=== PATIENT | male | born 1935 | race Caucasian/White ===

== ENCOUNTER 2017-04-26 20:36 | Inpatient (IN) | payer OTHER ==
[~2017-04-26] VITALS: Ht 165.1 cm; Wt 84.1 kg
[2017-04-26 21:25] LABS: BASO % 0.1 %; BASO ABS # 0.01 K/uL (0-0.2); COMPLETE YES; EOS % 2.7 %; HEMATOCRIT 45.1 % (42-52); IG% 0.5 %; LYMPH % 15.1 %; LYMPH ABS # 1.13 K/uL (1.2-3.4); MEAN CELL VOLUME 93.6 fL (80-100); MEAN CORPUSCULAR HEMOGLOBIN 33.2 pg (25-34); MEAN CORPUSCULAR HGB CONC 35.5 g/dl (32-36); MEAN PLATELET VOLUME 9.8 fL (7.4-10.4); MONO % 9.2 %; NEUT % 72.4 %; PLATELET COUNT 125 K/uL (130-400); RED BLOOD COUNT 4.82 M/uL (4.7-6.1)
[2017-04-26 21:47] LABS: ALT/SGPT 32 U/L (12-78); BLOOD UREA NITROGEN 23 mg/dl (7-18); BUN/CREATININE RATIO 14.6 (10-20); CALCIUM 9.4 mg/dl (8.5-10.1); CARBON DIOXIDE 25 mmol/L (21-32); CHLORIDE 105 mmol/L (98-107); GLUCOSE 248 mg/dl (70-99); POTASSIUM 3.6 mmol/L (3.5-5.1); SODIUM 138 mmol/L (136-145)
[2017-04-26 21:50] LABS: ALB/GLOB RATIO 0.9 (0.9-2); ALKALINE PHOSPHATASE 77 U/L (45-117); AST/SGOT 27 U/L (15-37)
[2017-04-26] MEDS ORDERED: SODIUM CHLORIDE 0.9% 500ML 500 ML IV STA (22:07)
[2017-04-26] MEDS ORDERED: MECLIZINE HCL 25 MG TAB PO STA (22:07)
--- NOTE | 2017-04-26 22:52 | DIAGNOSTIC IMAGING REPORT ---
HEAD WITHOUT CONTRAST (CT) CLINICAL HISTORY: 82 years-old Male presenting with dizziness. TECHNIQUE: Multidetector CT imaging of the head was performed without the use of intravenous contrast. IV contrast: None. A dose lowering technique was used consistent with the principles of ALARA (as low as reasonably achievable). COMPARISON: None. CT DOSE (mGy.cm): The estimated cumulative dose is 537.48 mGy.cm. 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 Ventricular and sulcal prominence, likely age-related parenchymal volume loss. Relative effacement of the sulci at the vertex. Periventricular and subcortical white matter hypoattenuation, nonspecific but likely indicative of chronic small vessel ischemic change. Hypodensity in the medial aspect of the right cerebellar hemisphere with associated mass effect on the fourth ventricle and regional cerebellar folia. No mass effect or midline shift. No hemorrhage. No extra-axial fluid collection. Paranasal sinuses and mastoid air cells clear. Calvarium intact. IMPRESSION: 1. Findings concerning for acute or subacute infarct in the right cerebellar hemisphere. 2. Chronic small vessel ischemic change. 3. Relative effacement of the sulci at the vertex can be seen in the setting of normal pressure hydrocephalus. Further evaluation with noncontrast MR brain could be considered. Electronically signed by: Trever Hardy M.D. 04/26/2017 10:51 PM Dictated Date/Time: 04/26/2017 10:46 PM
[2017-04-26] MEDS ORDERED: LABETALOL HCL IV 5 MG/ML 20ML IV STA (23:16)
[2017-04-26] MEDS ORDERED: ASPIRIN 81 MG CHEW PO STA (23:16)
[2017-04-26] MEDS ORDERED: INSULIN GLARGINE SOLOSTAR 100 UNITS/ML 3 ML PEN SC STA (23:30)
[2017-04-26 23:58] LABS: MAGNESIUM 2.1 mg/dl (1.8-2.4)
[2017-04-27] VITALS (7 sets, daily range): BP systolic 129–177; BP diastolic 77–105; PULSE 69–86; TEMP 36.7–36.9; O2SAT 94–98; Ht 165.1 cm; Wt 84.1 kg
[2017-04-27] MEDS ORDERED: DEXTROSE 50% 50 ML SYR IV PRN (00:45)
[2017-04-27] MEDS ORDERED: GLUCOSE 10 TABS/TUBE PO PRN (00:45)
[2017-04-27] MEDS ORDERED: PHARMACIST DISCHARGE MED REC CONSULT PRN (00:45)
[2017-04-27] MEDS ORDERED: NITROGLYCERIN 0.4 MG SL PER TAB CHARGE SL PRN (00:45)
[2017-04-27] MEDS ORDERED: MECLIZINE HCL 12.5 MG TAB PO PRN (00:45)
[2017-04-27] MEDS ORDERED: GLUCOSE 40% GEL 15 GM TUBE PO PRN (00:45)
[2017-04-27] MEDS ORDERED: TRAMADOL HCL 50 MG TAB PO PRN (00:45)
[2017-04-27] MEDS ORDERED: ACETAMINOPHEN 325 MG TAB PO PRN (00:45)
[2017-04-27] MEDS ORDERED: ONDANSETRON INJ 2 MG/ML 2 ML VIAL IV PRN (00:45)
[2017-04-27] MEDS ORDERED: GLUCAGON FOR INJ 1 MG VIAL SQ PRN (00:45)
--- NOTE | 2017-04-27 01:31 | EMERGENCY ROOM VISIT NOTE ---
History Report prepared by Candy: Delmi Engel Under the Supervision of: Dr. Daryn Melissa M.D. First contact with patient: 21:50 Chief Complaint: DIZZY Stated Complaint: DIZZY,NAUSEA Nursing Triage Summary: Per patient, has been experiencing dizziness for "awhile now." With increased weakness. Per family, patient has c/o dizziness from at least Thursday on, states he has been crawling to get around and has not been eating/drinking enough. Family states they have tried getting him to ER and patient has refused. Today patient agreed he needed checked out. Pt has dual chamber pacer. History of Present Illness The patient is an 82 year old male who presents to the Emergency Room with complaints of worsening dizziness starting four days ago. The patient states that he has had this in the past, but didn't do anything about it. The patient notes he doesn't remember the last time he has seen a doctor. The patient notes that it is worse with movement and better when lying down. His family notes that he was on depression medication at one point and just stopped taking everything. They note that at this time his communications engineering technician dismissed him for not taking his Coumadin after having a pacemaker placed for bradycardia. Pt denies LOC, headache, fevers, chills, diaphoresis, visual changes, neck pain, chest pain, breathing difficulties, nausea, vomiting, abdominal pain, back pain, melena, hematochezia, urinary symptoms, numbness, weakness, lymphadenopathy, rash, or other complaints. Source of History: patient, family Onset: four days ago Position: other (global) Quality: other (global) Timing: worsening Modifying Factors (Worsening): movement Modifying Factors (Relieving): rest Review of Systems See HPI for pertinent positives and negatives. A total of ten systems were reviewed and were otherwise negative. Past Medical & Surgical Medical Problems: (1) Bradyarrhythmia (2) CVA (cerebral vascular accident) (3) Depression (4) Pacemaker Family History Patient reports no known family medical history. Social History Smoking Status: Never Smoker Marital Status: Housing Status: lives alone Current/Historical Medications No Active Prescriptions or Reported Meds Allergies Coded Allergies: No Known Allergies (Unverified , 04/26/17) Physical Exam Vital Signs Date Time Temp Pulse Resp B/P (MAP) Pulse Ox O2 Delivery O2 Flow Rate FiO2 04/27/17 00:11 36.6 71 18 151/102 98 04/27/17 00:03 71 18 151/102 98 Room Air 04/26/17 22:26 72 20 177/90 95 Room Air 04/26/17 22:21 72 191/104 73 164/107 74 177/90 04/26/17 21:03 71 04/26/17 20:49 36.6 70 18 173/110 96 Room Air Physical Exam GENERAL: Awake, alert, well-appearing, in no distress HENT: Normocephalic, atraumatic. Oropharynx unremarkable. EYES: Normal conjunctiva. Sclera non-icteric. NECK: Supple. No nuchal rigidity. FROM. No JVD. RESPIRATORY: Clear to auscultation. CARDIAC: Regular rate, normal rhythm. Extremities warm and well perfused. Pulses equal. ABDOMEN: Soft, non-distended. No tenderness to palpation. No rebound or guarding. No masses. RECTAL: Deferred. MUSCULOSKELETAL: Chest examination reveals no tenderness. The back is symmetrical on inspection without obvious abnormality. There is no CVA tenderness to palpation. No joint edema. LOWER EXTREMITIES: Calves are equal size bilaterally and non-tender. No edema. No discoloration. NEURO: Normal sensorium. No sensory or motor deficits noted. Lateral nystagmus. SKIN: No rash or jaundice noted. Secondary excoriations on shins. Medical Decision & Procedures ER Provider Diagnostic Interpretation: Radiology results as stated below per my review and radiologist interpretation: HEAD WITHOUT CONTRAST (CT) CLINICAL HISTORY: 82 years-old Male presenting with dizziness. TECHNIQUE: Multidetector CT imaging of the head was performed without the use of intravenous contrast. IV contrast: None. A dose lowering technique was used consistent with the principles of ALARA (as low as reasonably achievable). COMPARISON: None. CT DOSE (mGy.cm): The estimated cumulative dose is 537.48 mGy.cm. 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 Ventricular and sulcal prominence, likely age-related parenchymal volume loss. Relative effacement of the sulci at the vertex. Periventricular and subcortical white matter hypoattenuation, nonspecific but likely indicative of chronic small vessel ischemic change. Hypodensity in the medial aspect of the right cerebellar hemisphere with associated mass effect on the fourth ventricle and regional cerebellar folia. No mass effect or midline shift. No hemorrhage. No extra-axial fluid collection. Paranasal sinuses and mastoid air cells clear. Calvarium intact. IMPRESSION: 1. Findings concerning for acute or subacute infarct in the right cerebellar hemisphere. 2. Chronic small vessel ischemic change. 3. Relative effacement of the sulci at the vertex can be seen in the setting of normal pressure hydrocephalus. Further evaluation with noncontrast MR brain could be considered. Electronically signed by: Trever Hardy M.D. 04/26/2017 10:51 PM Dictated Date/Time: 04/26/2017 10:46 PM Laboratory Results 04/26/17 21:10 Red Blood Count 4.82, Mean Corpuscular Volume 93.6, Mean Corpuscular Hemoglobin 33.2, Mean Corpuscular Hemoglobin Concent 35.5, Mean Platelet Volume 9.8, Neutrophils (%) (Auto) 72.4, Lymphocytes (%) (Auto) 15.1, Monocytes (%) (Auto) 9.2, Eosinophils (%) (Auto) 2.7, Basophils (%) (Auto) 0.1, Neutrophils # (Auto) 5.43, Lymphocytes # (Auto) 1.13, Monocytes # (Auto) 0.69, Eosinophils # (Auto) 0.20, Basophils # (Auto) 0.01 04/26/17 21:10 Test 04/26/17 21:10 04/26/17 21:15 White Blood Count 7.50 K/uL (4.8-10.8) Red Blood Count 4.82 M/uL (4.7-6.1) Hemoglobin 16.0 g/dL (14.0-18.0) Hematocrit 45.1 % (42-52) Mean Corpuscular Volume 93.6 fL (80-100) Mean Corpuscular Hemoglobin 33.2 pg (25-34) Mean Corpuscular Hemoglobin Concent 35.5 g/dl (32-36) Platelet Count 125 K/uL (130-400) Mean Platelet Volume 9.8 fL (7.4-10.4) Neutrophils (%) (Auto) 72.4 % Lymphocytes (%) (Auto) 15.1 % Monocytes (%) (Auto) 9.2 % Eosinophils (%) (Auto) 2.7 % Basophils (%) (Auto) 0.1 % Neutrophils # (Auto) 5.43 K/uL (1.4-6.5) Lymphocytes # (Auto) 1.13 K/uL (1.2-3.4) Monocytes # (Auto) 0.69 K/uL (0.11-0.59) Eosinophils # (Auto) 0.20 K/uL (0-0.5) Basophils # (Auto) 0.01 K/uL (0-0.2) RDW Standard Deviation 42.1 fL (36.4-46.3) RDW Coefficient of Variation 12.4 % (11.5-14.5) Immature Granulocyte % (Auto) 0.5 % Immature Granulocyte # (Auto) 0.04 K/uL (0.00-0.02) Activated Partial Thromboplast Time 24.7 SECONDS (21.0-31.0) Partial Thromboplastin Ratio 1.0 Anion Gap 8.0 mmol/L (3-11) Estimated GFR () 45.2 Estimated GFR (Non- 39.0 BUN/Creatinine Ratio 14.6 (10-20) Calcium Level 9.4 mg/dl (8.5-10.1) Magnesium Level 2.1 mg/dl (1.8-2.4) Total Bilirubin 0.9 mg/dl (0.2-1) Aspartate Amino Transf (AST/SGOT) 27 U/L (15-37) Alanine Aminotransferase (ALT/SGPT) 32 U/L (12-78) Alkaline Phosphatase 77 U/L (45-117) Total Protein 7.8 gm/dl (6.4-8.2) Albumin 3.7 gm/dl (3.4-5.0) Globulin 4.1 gm/dl (2.5-4.0) Albumin/Globulin Ratio 0.9 (0.9-2) Thyroid Stimulating Hormone (TSH) 2.530 uIu/ml (0.300-4.500) Laboratory results reviewed by me Medications Administered Medications (Trade) Dose Ordered Sig/Alida Route Start Time Stop Time Status Last Admin Dose Admin Meclizine HCl (Antivert Tab) 25 mg NOW STAT PO 04/26/17 22:07 04/26/17 22:09 DC 04/26/17 22:25 25 MG Sodium Chloride 500 ml @ 999 mls/hr Q31M STAT IV 04/26/17 22:07 04/26/17 22:37 DC 04/26/17 22:25 999 MLS/HR Aspirin (Aspirin Chew) 324 mg NOW STAT PO 04/26/17 23:16 04/26/17 23:17 DC 04/26/17 23:29 324 MG Labetalol HCl (Normodyne IV) 10 mg NOW STAT IV 04/26/17 23:16 04/26/17 23:17 DC 04/26/17 23:31 10 MG Insulin Glargine (Lantus Solostar Pen) 5 units NOW STAT SC 04/26/17 23:30 04/26/17 23:31 DC 04/27/17 00:00 5 UNITS ECG Indication: other (dizziness) Rate (beats per minute): 72 Rhythm: other (paced rhythm) Findings: no acute ischemic change, no ectopy ED Course 5: The patient was evaluated in room B5. A complete history and physical exam was performed. 2207: Ordered NSS 500 ml @ 999 mls/hr IV, Antivert Tab 25 mg PO. 2316: Ordered Normodyne IV 10 mg IV, Aspirin 324 mg PO. 2318: I reevaluated the patient and updated him on his test results. 2321: Discussed the patient's case with Dr. Tejada. The patient will be evaluated for further treatment and disposition. Medical Decision Triage Nursing notes reviewed. The patient's presentation and history were concerning for dizziness. Etiologies such as benign positional vertigo, tumor, infection, hypoglycemia, electrolyte abnormalities, cardiac sources, intracerebral event, toxicologic, neurologic, as well as others were entertained. patient was evaluated. He had some examination.He was dizzy with head movement. Blood work was obtained and was unremarkable. ECG showed a paced rhythm. The patient underwent CT imaging and this was concerning for an acute cerebellar stroke. The patient was given aspirin. His blood pressure was fairly high and a small dose of labetalol was given as well. Consultation was made with internal medicine. The patient was educated as well as family. The patient was evaluated in the Emergency Room by internal medicine for admission and further treatment. Medication Reconcilliation Current Medication List: was personally reviewed by il Blood Pressure Screening Patient's blood pressure: Elevated blood pressure Will be further monitored by hospitalist. Consults Time Called: 2319 Consulting Physician: Dr. Tejada Returned Call: [phone] Discussed the patient's case with Dr. Tejada. The patient will be evaluated for further treatment and disposition. Impression Primary Impression: CVA (cerebral vascular accident) Scribe Attestation The scribe's documentation has been prepared under my direction and personally reviewed by me in its entirety. I confirm that the note above accurately reflects all work, treatment, procedures, and medical decision making performed by me. Departure Information Dispostion Being Evaluated By Hospitalist Prescriptions No Active Prescriptions or Reported Meds Referrals No Doctor, Assigned (PCP) Patient Instructions My [facility]
[2017-04-27] MEDS ORDERED: NSS + 20MEQ KCL 1000ML 1,000 ML IV ONE (01:45)
[2017-04-27] MEDS ORDERED: INSULIN ASPART 100 UNITS/ML 3 ML PEN SC STA (01:46)
--- NOTE | 2017-04-27 03:21 | HISTORY & PHYSICAL EXAMINATION ---
DATE OF ADMISSION: 04/26/2017 PRIMARY CARE DOCTOR: Patient has no primary care doctor. Previous PCP is Asael Bailey PA-C. CHIEF COMPLAINT: Dizziness. HISTORY OF PRESENT ILLNESS: History is obtained from the patient, family, and records. Medical history is significant for symptomatic bradycardia sp PPM, Coumadin noncompliance, hypertension, borderline DM2, past tobacco abuse, BPH. Five days ago, the patient noted dizziness spinning, worse with moving around. Px crawling around his house. Did not want to go to the Emergency Room. Yesterday a friend of his advised him to take aspirin. No chest pain, no shortness of breath, no headache. Patient was brought to the Emergency Room with persistent symptoms. A CAT scan showed acute-subacute infarct right cerebellar hemisphere, chronic small vessel ischemic change. Patient was given additional aspirin in the Emergency Room. MEDICAL HISTORY: As above. He was seeing Dr. 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 SURGERIES: Pacemaker placement, cholecystectomy, orthopedic procedures. HOME MEDICATIONS: None. ALLERGIES: No known drug allergies. FAMILY HISTORY: Heart disease. PERSONAL AND SOCIAL HISTORY: Past tobacco abuse, no alcohol. 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 Lives alone. REVIEW OF SYSTEMS: As per HPI, all other ROS negative. PHYSICAL EXAMINATION: VITAL SIGNS: Blood pressure was noted to be pulse 150/110, pulse rate 72, RR 20, temperature 36.6, sats 95 on room air. GENERAL: Noted to be obese, comfortable, no respiratory distress. SKIN: Normal color. HEENT: [place] palpebral conjunctivae. Dry mucosa. lip asymmetry, L NECK: Short. CHEST: Decreased breath sounds. HEART: Diminished S1, S2. ABDOMEN: Soft. EXTREMITIES: No edema, no tenderness. NEUROLOGIC: No gross focality, except for lip asymmetry. Gait and stance not assessed. LABORATORY DATA: Hemoglobin was noted to be 16, hematocrit 45, white blood cell 10 , platelets noted to be 125. Sodium 138, potassium 3.6, chloride 105, CO2 25, BUN 20, creatinine 1.6, glucose 248. IMAGING DATA: CT of the head as above. EKG as per my interpretation paced rhythm. ASSESSMENT: 1. Subacute cerebrovascular accident. 2. Hypertensive urgency secondary to above. 3. History of symptomatic bradycardia (? SSS) sp PPM noncompliant with Coumadin. 4. hx hyperlipidemia as per family. 5. Past tobacco abuse. 6. Thrombocytopenia, unknown duration. 7. ARF, unknown duration. 8. probable DM2 (hx borderline diabetes years ago as per patient) 9. BPH as per records PLAN: PCU. Neuro checks. Continue aspirin for secondary stroke prevention for now. Initiate statin Stroke workup : TTE, carotid Dopplers Check lipid profile Neurology consult RE stroke. PT, OT eval. Permissive hypertension for now, consider initiation of ACEI later on barring contraindications Baseline UA, monitor creatinine response to IV fluids; check renal ultrasound if without improvement. Pacemaker interrogation, obtain outpatient Cardiology records (Dr. Laguerre) basal Lantus. ISS BG goal 140-180. Check hemoglobin A1c. May need diabetic education pending HgA1c results. DVT prophylaxis. SCDs thrombocytopenia DNR. Patient's son requesting updates from providers. Obinna Ramez at [phone]. MTDD
[2017-04-27 06:14] LABS: ESTIMATED AVERAGE GLUCOSE 177 mg/dl; HA1C FLAG Normal (Normal)
[2017-04-27] MEDS: INSULIN ASPART 100 UNITS/ML 3 ML PEN SC SCH ×4 (07:00→21:00)
[2017-04-27 07:03] LABS: BASO % 0.3 %; BASO ABS # 0.02 K/uL (0-0.2); COMPLETE YES; EOS % 4.8 %; HEMATOCRIT 42.3 % (42-52); IG% 0.4 %; LYMPH % 21.5 %; LYMPH ABS # 1.52 K/uL (1.2-3.4); MEAN CELL VOLUME 93.6 fL (80-100); MEAN CORPUSCULAR HGB CONC 35.2 g/dl (32-36); MEAN PLATELET VOLUME 9.9 fL (7.4-10.4); PLATELET COUNT 103 K/uL (130-400); RED BLOOD COUNT 4.52 M/uL (4.7-6.1); WHITE BLOOD COUNT 7.07 K/uL (4.8-10.8)
[2017-04-27 07:26] LABS: BUN/CREATININE RATIO 13.5 (10-20); CREATININE 1.5 mg/dl (0.60-1.40); POTASSIUM 4.2 mmol/L (3.5-5.1)
[2017-04-27 07:29] LABS: CHOLESTEROL/HDL RATIO 2.5
[2017-04-27] MEDS: ASPIRIN 325 MG ECTAB PO SCH (08:15)
[2017-04-27] MEDS: INSULIN GLARGINE SOLOSTAR 100 UNITS/ML 3 ML PEN SC SCH ×2 (08:22→21:19)
--- NOTE | 2017-04-27 08:59 | DIAGNOSTIC IMAGING REPORT ---
CAROTID ARTERY ULTRASOUND CLINICAL HISTORY: Stroke. COMPARISON STUDY: None. TECHNIQUE: Real-time, grayscale, and color Doppler sonography of the carotid and vertebral arteries was performed. Images were viewed in the transverse and longitudinal planes. FINDINGS: There is moderate atherosclerotic plaque. Velocity measurements are listed below. COMMON CAROTID PEAK SYSTOLIC VELOCITY (CM/S): RIGHT 41 LEFT 49 ICA PEAK SYSTOLIC VELOCITY (CM/S): RIGHT 56 LEFT 70 Systolic ratios between the internal to common carotid arteries were normal. Antegrade flow is seen in the vertebral arteries however flow within the right vertebral artery was asymmetrically diminished when compared to the left. The external carotid arteries are patent. Blood pressures were not obtained in this patient. IMPRESSION: 1. No evidence of a hemodynamically significant stenosis within the bilateral common carotid and internal carotid arteries. 2. Asymmetrically diminished flow within the right vertebral artery when compared to left. Electronically signed by: Tai Bardales M.D. 04/27/2017 8:58 AM Dictated Date/Time: 04/27/2017 8:54 AM
[2017-04-27] MEDS ORDERED: ATORVASTATIN 20 MG TAB PO SCH (09:00)
[2017-04-27] MEDS ORDERED: PERFLUTREN LIPID MICROSPHERE (DEFINITY) IV ONE (10:06)
--- NOTE | 2017-04-27 13:31 | Neurology Consultation ---
Neurology Consultation Date of Consultation: Apr 27, 2017. Attending Physician: Alyssa Cisneros DO Primary Care Physician: No Doctor, Assigned Reason for Consultation: stroke History of Present Illness Source: patient, hospital records Jose is a 82 year old male who has a PMH symptomatic bradycardia, sick sinus syndrome, status post pacemaker placement, HTN, DL, past tobacco abuse, BPH. He states he started getting dizzy 5 days ago, increased with moving around. He had trouble crawling around his house and didn't want to seek medical attention. he was brought to ED given aspirin and A CAT scan showed acute- subacute infarct right cerebellar hemisphere, chronic small vessel ischemic change. He can not have an MRI due to his pacemaker. He states he lives alone and doesn't go to the doctor regularly. Social History Marital Status: Housing Status: lives alone Allergies Coded Allergies: No Known Allergies (Unverified , 04/26/17) Current Inpatient Medications Current Inpatient Medications Medications (Trade) Dose Ordered Sig/Alida Route Start Time Stop Time Status Last Admin Dose Admin Insulin Glargine (Lantus Solostar Pen) 5 units BID SC 04/27/17 09:00 05/27/17 08:59 04/27/17 08:22 5 UNITS Potassium Chloride/Sodium Chloride 1,000 ml @ 60 mls/hr [id number] ONCE IV 04/27/17 01:45 04/27/17 18:24 04/27/17 02:12 60 MLS/HR Acetaminophen (Tylenol Tab) 650 mg Q4H PRN PO 04/27/17 00:45 05/27/17 00:44 Nitroglycerin (Nitrostat Tab) 0.4 mg UD PRN SL 04/27/17 00:45 05/27/17 00:44 Insulin Aspart (novoLOG ASPART) SLIDING SCALE If C... ACHS SC 04/27/17 07:00 05/27/17 06:59 04/27/17 12:23 3 UNITS Glucose (Glucose 40% Gel) 15-30 GRAMS 15 GRAMS... UD PRN PO 04/27/17 00:45 05/27/17 00:44 Glucose (Glucose Chew Tab) 4-8 Tablets 4 Tabl... UD PRN PO 04/27/17 00:45 05/27/17 00:44 Dextrose (Dextrose 50% 50ML Syringe) 25-50ML OF 50% DW IV FOR... UD PRN IV 04/27/17 00:45 05/27/17 00:44 Glucagon (Glucagon Inj) 1 mg UD PRN SQ 04/27/17 00:45 05/27/17 00:44 Atorvastatin Calcium (Lipitor Tab) 20 mg QAM PO 04/27/17 09:00 05/27/17 08:59 04/27/17 08:15 20 MG Aspirin (Ecotrin Tab) 325 mg QAM PO 04/27/17 09:00 05/27/17 08:59 04/27/17 08:15 325 MG Miscellaneous Information (Pharmacist Discharge Med Rec Consult) 1 ea UD PRN N/A 04/27/17 00:45 05/27/17 00:44 Tramadol HCl (Ultram Tab) not relieved by tylenol @ Q6H PRN PO 04/27/17 00:45 05/27/17 00:44 Ondansetron HCl (Zofran Inj) 4 mg Q6H PRN IV 04/27/17 00:45 05/27/17 00:44 Meclizine HCl (Antivert Tab) 12.5 mg Q6H PRN PO 04/27/17 00:45 05/27/17 00:44 Physical Exam Vital Signs (Past 24 Hrs): Date Time Temp Pulse Resp B/P (MAP) Pulse Ox O2 Delivery O2 Flow Rate FiO2 04/27/17 12:00 Room Air 04/27/17 11:47 36.7 85 18 158/92 (114) 95 04/27/17 08:22 36.8 86 18 140/93 (109) 95 04/27/17 08:00 Room Air 04/27/17 04:12 36.7 71 18 129/77 (94) 94 Room Air 04/27/17 01:25 36.8 73 20 177/105 98 Room Air 04/27/17 00:11 36.6 71 18 151/102 98 04/27/17 00:03 71 18 151/102 98 Room Air 04/26/17 22:26 72 20 177/90 95 Room Air 04/26/17 22:21 72 191/104 73 164/107 74 177/90 04/26/17 21:03 71 04/26/17 20:49 36.6 70 18 173/110 96 Room Air Physical Exam: Constitutional: appearance nourished, healthy and obese Ears, Nose, Mouth and Throat: mucous membranes moist, no injection and skin normal, eyes normal Cardiovascular: normal S-1 and S-2 and regular rate and rhythm Respiratory: clear to auscultation (CTA) and no rales, rhonchi or wheeze Musculoskeletal: no peripheral edema and good distal pulses Skin: no stigmata of neurocutaneous disease noted and normal and intact Eyes: extraocular muscles intact (EOMI) and pupils equal, round and reactive to light (PERRL) NEUROLOGIC EXAMINATION: Mental status: Alert and interactive Oriented to full date and location, [facility], 2017, president Paulo, says no ifs ands or buts, sticks out tongue, closes eyes points to ceiling with right hand Oriented to person Speech fluent with no evidence of aphasia Cranial Nerves smile eye brow raise symmetric, tongue midline Reflexes: Deep tendon reflexes were symmetrical and graded 2/5. Sensory: no sensory deficits with light or cool touch Coordination: finger to nose with slight bi pass on the right clumsy Gait/Stance: Posture normal. OOB to bathroom with walker Motor: Negative for pronator drift of out stretched arms with eyes closed. 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 bilaterally, hip flex plantar flex ext 5/5 Laboratory Results Past 24 Hours: 04/27/17 06:51 Red Blood Count 4.52, Mean Corpuscular Volume 93.6, Mean Corpuscular Hemoglobin 33.0, Mean Corpuscular Hemoglobin Concent 35.2, Mean Platelet Volume 9.9, Neutrophils (%) (Auto) 63.0, Lymphocytes (%) (Auto) 21.5, Monocytes (%) (Auto) 10.0, Eosinophils (%) (Auto) 4.8, Basophils (%) (Auto) 0.3, Neutrophils # (Auto ) 4.45, Lymphocytes # (Auto) 1.52, Monocytes # (Auto) 0.71, Eosinophils # (Auto ) 0.34, Basophils # (Auto) 0.02 04/27/17 06:51 Test 04/26/17 21:10 04/26/17 21:15 04/27/17 06:51 04/27/17 11:25 Activated Partial Thromboplast Time 24.7 SECONDS (21.0-31.0) Partial Thromboplastin Ratio 1.0 Magnesium Level 2.1 mg/dl (1.8-2.4) Total Bilirubin 0.9 mg/dl (0.2-1) Aspartate Amino Transf (AST/SGOT) 27 U/L (15-37) Alanine Aminotransferase (ALT/SGPT) 32 U/L (12-78) Alkaline Phosphatase 77 U/L (45-117) Total Protein 7.8 gm/dl (6.4-8.2) Albumin 3.7 gm/dl (3.4-5.0) Globulin 4.1 gm/dl (2.5-4.0) Albumin/Globulin Ratio 0.9 (0.9-2) Thyroid Stimulating Hormone (TSH) 2.530 uIu/ml (0.300-4.500) Estimated Average Glucose 177 mg/dl Hemoglobin A1c 7.8 % (4.5-5.6) White Blood Count 7.07 K/uL (4.8-10.8) Red Blood Count 4.52 M/uL (4.7-6.1) Hemoglobin 14.9 g/dL (14.0-18.0) Hematocrit 42.3 % (42-52) Mean Corpuscular Volume 93.6 fL (80-100) Mean Corpuscular Hemoglobin 33.0 pg (25-34) Mean Corpuscular Hemoglobin Concent 35.2 g/dl (32-36) Platelet Count 103 K/uL (130-400) Mean Platelet Volume 9.9 fL (7.4-10.4) Neutrophils (%) (Auto) 63.0 % Lymphocytes (%) (Auto) 21.5 % Monocytes (%) (Auto) 10.0 % Eosinophils (%) (Auto) 4.8 % Basophils (%) (Auto) 0.3 % Neutrophils # (Auto) 4.45 K/uL (1.4-6.5) Lymphocytes # (Auto) 1.52 K/uL (1.2-3.4) Monocytes # (Auto) 0.71 K/uL (0.11-0.59) Eosinophils # (Auto) 0.34 K/uL (0-0.5) Basophils # (Auto) 0.02 K/uL (0-0.2) RDW Standard Deviation 42.4 fL (36.4-46.3) RDW Coefficient of Variation 12.5 % (11.5-14.5) Immature Granulocyte % (Auto) 0.4 % Immature Granulocyte # (Auto) 0.03 K/uL (0.00-0.02) Anion Gap 5.0 mmol/L (3-11) Est Creatinine Clear Calc Drug Dose 36.9 ml/min Estimated GFR () 48.8 Estimated GFR (Non- 42.1 BUN/Creatinine Ratio 13.5 (10-20) Calcium Level 9.0 mg/dl (8.5-10.1) Triglycerides Level 115 mg/dl (0-150) Cholesterol Level 156 mg/dl (0-200) HDL Cholesterol 62 mg/dl LDL Cholesterol, Calculated 71 mg/dl VLDL Cholesterol, Calculated 23 mg/dl Cholesterol/HDL Ratio 2.5 Bedside Glucose 201 mg/dl (70-99) Imaging carotid doppler- No evidence of a hemodynamically significant stenosis within the bilateral common carotid and internal carotid arteries. Asymmetrically diminished flow within the right vertebral artery when compared to left. CT head - Findings concerning for acute or subacute infarct in the right cerebellar hemisphere. Chronic small vessel ischemic change. Relative effacement of the sulci at the vertex can be seen in the setting of normal pressure hydrocephalus. Further evaluation with noncontrast MR brain could be considered. Impression 82 year old male 5 days of dizziness, radiographic stroke on CT head. Plan 1. CT head with and without contrast 2. continue aspirin 81 mg and would start plavix [address] head with and without is reviewed 3. optimize DL, DM, HTN 4. interrogate pacemaker 5. patient states he lives alone will need home safety check or alternative living arrangements 6. fall precautions 7. PT/OT speech for discharge needs 8. further recommendations to follow I have seen and discussed above patient with Dr Daryn De Los Santos, neurology Patient seen and examined discussed with Arely riggs and agree with above recommendations He has had multiple events over the yeas likely small vessel but could be embolic suspect the current right cerebellar event was due to right vertebral disease but need to check echo for potential source of emboli and observe for atrial fibrillation events in light of sick sinus syndrome and pacemaker will need pt ot speech and likely social service assessment and potentially hsnv and dual antiplatelet rx for three months but compliance may be an issue will follow Patel De Los Santos MD
[2017-04-27] MEDS ORDERED: OPTIRAY 320 IV PRN (13:45)
--- NOTE | 2017-04-27 14:32 | DIAGNOSTIC IMAGING REPORT ---
HEAD COMBO CLINICAL HISTORY: stroke unable to have MRI due to pacemaker stroke TECHNIQUE: Pre and postcontrast CT of the brain COMPARISON STUDY: 04/26/2017 FINDINGS: Subacute infarct right cerebellar hemisphere. No significant postcontrast enhancement. Moderate to rather significant chronic small vessel change of the periventricular deep white matter regions. Mild age-related atrophy. Mild compensatory prominence of the ventricular system. IMPRESSION: 1. Subacute infarct right cerebellar hemisphere. Considerable chronic small vessel change. No abnormal postcontrast enhancement. The above report was generated using voice recognition software. It may contain grammatical, syntax or spelling errors. Electronically signed by: Usama Bailon M.D. 04/27/2017 2:31 PM Dictated Date/Time: 04/27/2017 2:29 PM
--- NOTE | 2017-04-27 16:16 | Progress Note ---
Subjective Date of Service: Apr 27, 2017. Subjective Pt evaluation today including: conversation w/ patient, physical exam, lab review, review of studies, review of inpatient medication list Saw/examined the patient in room 243 States he still feels slightly dizzy +L lower face, slightly drooped No motor weakness good PO intake Review of Systems Constitutional: No fever, No chills Respiratory: No cough, No sputum, No shortness of breath Cardiac: No chest pain Abdomen: + nausea, + vomiting (prior to arrival, but now improved), No pain Neurologic: + weakness, + vertigo, + balance problems, No numbness/tingling Medications Current Inpatient Medications Medications (Trade) Dose Ordered Sig/Alida Route Start Time Stop Time Status Last Admin Dose Admin Insulin Glargine (Lantus Solostar Pen) 5 units BID SC 04/27/17 09:00 05/27/17 08:59 04/27/17 08:22 5 UNITS Potassium Chloride/Sodium Chloride 1,000 ml @ 60 mls/hr [id number] ONCE IV 04/27/17 01:45 04/27/17 18:24 04/27/17 02:12 60 MLS/HR Acetaminophen (Tylenol Tab) 650 mg Q4H PRN PO 04/27/17 00:45 05/27/17 00:44 Nitroglycerin (Nitrostat Tab) 0.4 mg UD PRN SL 04/27/17 00:45 05/27/17 00:44 Insulin Aspart (novoLOG ASPART) SLIDING SCALE If C... ACHS SC 04/27/17 07:00 05/27/17 06:59 04/27/17 12:23 3 UNITS Glucose (Glucose 40% Gel) 15-30 GRAMS 15 GRAMS... UD PRN PO 04/27/17 00:45 05/27/17 00:44 Glucose (Glucose Chew Tab) 4-8 Tablets 4 Tabl... UD PRN PO 04/27/17 00:45 05/27/17 00:44 Dextrose (Dextrose 50% 50ML Syringe) 25-50ML OF 50% DW IV FOR... UD PRN IV 04/27/17 00:45 05/27/17 00:44 Glucagon (Glucagon Inj) 1 mg UD PRN SQ 04/27/17 00:45 05/27/17 00:44 Atorvastatin Calcium (Lipitor Tab) 20 mg QAM PO 04/27/17 09:00 05/27/17 08:59 04/27/17 08:15 20 MG Aspirin (Ecotrin Tab) 325 mg QAM PO 04/27/17 09:00 05/27/17 08:59 04/27/17 08:15 325 MG Miscellaneous Information (Pharmacist Discharge Med Rec Consult) 1 ea UD PRN N/A 04/27/17 00:45 05/27/17 00:44 Tramadol HCl (Ultram Tab) not relieved by tylenol @ Q6H PRN PO 04/27/17 00:45 05/27/17 00:44 Ondansetron HCl (Zofran Inj) 4 mg Q6H PRN IV 04/27/17 00:45 05/27/17 00:44 Meclizine HCl (Antivert Tab) 12.5 mg Q6H PRN PO 04/27/17 00:45 05/27/17 00:44 Ioversol (Optiray 320) 125 ml UD PRN IV 04/27/17 13:45 05/01/17 13:44 Objective Vital Signs Date Time Temp Pulse Resp B/P (MAP) Pulse Ox O2 Delivery O2 Flow Rate FiO2 04/27/17 16:01 36.7 69 22 162/93 (116) 96 Room Air 04/27/17 12:00 Room Air 04/27/17 11:47 36.7 85 18 158/92 (114) 95 04/27/17 08:22 36.8 86 18 140/93 (109) 95 04/27/17 08:00 Room Air 04/27/17 04:12 36.7 71 18 129/77 (94) 94 Room Air 04/27/17 01:25 36.8 73 20 177/105 98 Room Air 04/27/17 00:11 36.6 71 18 151/102 98 04/27/17 00:03 71 18 151/102 98 Room Air 04/26/17 22:26 72 20 177/90 95 Room Air 04/26/17 22:21 72 191/104 73 164/107 74 177/90 04/26/17 21:03 71 04/26/17 20:49 36.6 70 18 173/110 96 Room Air Physical Exam General Appearance: no apparent distress Cardiovascular: regular rate, rhythm, no edema, no murmur Neurologic/Psychiatric: no motor/sensory deficits, alert, normal mood/affect, + pertinent finding (no motor weakness, slightly droop of L lower face) Laboratory Results Last 24 Hours Test 04/26/17 21:10 04/26/17 21:15 04/27/17 02:09 04/27/17 06:51 White Blood Count 7.50 K/uL 7.07 K/uL Red Blood Count 4.82 M/uL 4.52 M/uL Hemoglobin 16.0 g/dL 14.9 g/dL Hematocrit 45.1 % 42.3 % Mean Corpuscular Volume 93.6 fL 93.6 fL Mean Corpuscular Hemoglobin 33.2 pg 33.0 pg Mean Corpuscular Hemoglobin Concent 35.5 g/dl 35.2 g/dl Platelet Count 125 K/uL 103 K/uL Mean Platelet Volume 9.8 fL 9.9 fL Neutrophils (%) (Auto) 72.4 % 63.0 % Lymphocytes (%) (Auto) 15.1 % 21.5 % Monocytes (%) (Auto) 9.2 % 10.0 % Eosinophils (%) (Auto) 2.7 % 4.8 % Basophils (%) (Auto) 0.1 % 0.3 % Neutrophils # (Auto) 5.43 K/uL 4.45 K/uL Lymphocytes # (Auto) 1.13 K/uL 1.52 K/uL Monocytes # (Auto) 0.69 K/uL 0.71 K/uL Eosinophils # (Auto) 0.20 K/uL 0.34 K/uL Basophils # (Auto) 0.01 K/uL 0.02 K/uL RDW Standard Deviation 42.1 fL 42.4 fL RDW Coefficient of Variation 12.4 % 12.5 % Immature Granulocyte % (Auto) 0.5 % 0.4 % Immature Granulocyte # (Auto) 0.04 K/uL 0.03 K/uL Activated Partial Thromboplast Time 24.7 SECONDS Partial Thromboplastin Ratio 1.0 Sodium Level 138 mmol/L 142 mmol/L Potassium Level 3.6 mmol/L 4.2 mmol/L Chloride Level 105 mmol/L 108 mmol/L Carbon Dioxide Level 25 mmol/L 29 mmol/L Anion Gap 8.0 mmol/L 5.0 mmol/L Blood Urea Nitrogen 23 mg/dl 20 mg/dl Creatinine 1.60 mg/dl 1.50 mg/dl Estimated GFR () 45.2 48.8 Estimated GFR (Non- 39.0 42.1 BUN/Creatinine Ratio 14.6 13.5 Random Glucose 248 mg/dl 130 mg/dl Calcium Level 9.4 mg/dl 9.0 mg/dl Magnesium Level 2.1 mg/dl Total Bilirubin 0.9 mg/dl Aspartate Amino Transf (AST/SGOT) 27 U/L Alanine Aminotransferase (ALT/SGPT) 32 U/L Alkaline Phosphatase 77 U/L Total Protein 7.8 gm/dl Albumin 3.7 gm/dl Globulin 4.1 gm/dl Albumin/Globulin Ratio 0.9 Thyroid Stimulating Hormone (TSH) 2.530 uIu/ml Estimated Average Glucose 177 mg/dl Hemoglobin A1c 7.8 % Bedside Glucose 225 mg/dl Est Creatinine Clear Calc Drug Dose 36.9 ml/min Triglycerides Level 115 mg/dl Cholesterol Level 156 mg/dl HDL Cholesterol 62 mg/dl LDL Cholesterol, Calculated 71 mg/dl VLDL Cholesterol, Calculated 23 mg/dl Cholesterol/HDL Ratio 2.5 Test 04/27/17 11:25 Bedside Glucose 201 mg/dl Assessment and Plan This is an 82 year old male with a PMH of sick sinus syndrome s/p PPM, hyperlipidemia, presents with acute-subacute CVA Acute to Subacute CVA patient presents with dizziness CT shows acute or subacute infarct in the right cerebellar hemisphere CT with and without contrast pending as per neurology pending those results, will start aspirin 81mg and Plavix 75mg daily increase Lipitor to 40mg PT/OT/speech evals lives alone - will probably need SNF placement New Onset DM2 Ha1c = 7.8% he is okay with starting oral diabetic medications will likely start metformin, but while inpatient we will continue sliding scale and Lantus Sick Sinus Syndrome pacemaker interrogation as per neuro Thrombocytopenia chronic? unsure of the cause DVT ppx currently on full dose ASA and SCDs DNR
[2017-04-27] MEDS ORDERED: CLOPIDOGREL BISULFATE 75 MG TAB PO ONE (16:45)
--- NOTE | 2017-04-27 18:25 | ECHOCARDIOGRAM REPORT ---
*NOTICE TO RECEIVING [employer] This information is strictly Confidential and protected under [place] law. [place] law prohibits you from making any further disclosure of this information unless further disclosure is expressly permitted by the written consent of the person to whom it pertains or is authorized by law. A general authorization for the release of medical or other information is not sufficient for this purpose. Hospital accepts no responsibility if the information is made available to any other person, INCLUDING THE PATIENT. Interpretation Summary * Name: FACUNDO AGUIRRE Study Date: 04/27/2017 09:05 AM BP: 129/77 mmHg * Patient Location: .2T\S\S243\S\1 HR: 84 * : 1935 (M/d/yyy) Gender: Male Height: 65 in * Age: 82 yrs Ethnicity: [place] Weight: 188 lb * Ordering Physician: Riley Tejada * Referring Physician: Self, Referred * Performed By: Laura Orantes RDCS * * Reason For Study: CVA * BSA: 1.9 m2 * -- Conclusions -- * Left ventricular systolic function is normal. * The left ventricular wall motion is normal. * Ejection Fraction = 65-70%. * The right ventricle is normal size. * The right ventricular systolic function is normal as assessed by tricuspid annular plane systolic excursion (TAPSE) (normal >1.5 cm). * There is a pacemaker lead in the right ventricle. * Aortic valve sclerosis mild, without significant aortic valvular stenosis. * There is mild tricuspid regurgitation. * Doppler findings do not suggest pulmonary hypertension. * Grade I diastolic dysfunction, (abnormal relaxation pattern). * There is no evidence of atrial septal defect, but resolution does not allow assessment for a patent foramen ovale. Procedure Details * A complete two-dimensional transthoracic echocardiogram was performed (2D, M-mode, Doppler and color flow Doppler). * A saline contrast injection was performed to assess for cardiac shunting. * The injection was performed through an intravenous line in the right arm. * The attending nurse who injected the saline contrast was Julia Edwards RN. * A total of 20 cc of agitated saline was given. * A contrast injection of Definity was performed to improve assessment of LV function. * Contrast was injected into an intravenous site in the right arm. * One vial of Definity ultrasound contrast was diluted in normal saline to a total volume of 10 ml. A total of '3' ml of solution was administered during imaging. * Lot # [id number] of Definity utilized for procedure. * Expiration date MAY 27. * The attending nurse who injected the contrast agent was Julia Edwards RN. Left Ventricle * The left ventricle is normal in size. * There is normal left ventricular wall thickness. * Ejection Fraction = 65-70%. * Left ventricular systolic function is normal. * The left ventricular wall motion is normal. Right Ventricle * The right ventricle is normal size. * The right ventricular systolic function is normal as assessed by tricuspid annular plane systolic excursion (TAPSE) (normal >1.5 cm). Atria * The left atrial size is normal. * Right atrial size is normal. * There is no evidence of atrial septal defect, but resolution does not allow assessment for a patent foramen ovale. Mitral Valve * The mitral valve is normal. * There is no mitral valve stenosis. * Significant mitral regurgitation is absent. Tricuspid Valve * The tricuspid valve is normal. * There is no tricuspid stenosis. * There is mild tricuspid regurgitation. * Doppler findings do not suggest pulmonary hypertension. Aortic Valve * The aortic valve is trileaflet. * Aortic valve sclerosis mild, without significant aortic valvular stenosis. * Aortic stenosis is absent. * There is no significant aortic regurgitation. Pulmonic Valve * The pulmonary valve is not well seen, but the Doppler examination is normal without significant regurgitation or stenosis. Great Vessels * The aortic root and proximal ascending aorta are normal sized. Pericardium/Pleural * There is no pericardial effusion. Right Ventricle * There is a pacemaker lead in the right ventricle. Great Vessels * Normal inferior vena cava diameter and respiratory variation suggests normal central venous pressure. Left Ventricular Diastolic Function * Grade I diastolic dysfunction, (abnormal relaxation pattern). MMode 2D Measurements and Calculations IVSd 1.1 cm LVIDd 4.1 cm LVIDs 2.6 cm LVPWd 1.0 cm IVS/LVPW 1.1 FS 37.1 % EDV(Teich) 72.6 ml ESV(Teich) 23.5 ml EF(Teich) 67.6 % EDV(cubed) 67.0 ml ESV(cubed) 16.7 ml EF(cubed) 75.1 % LV mass(C)d 144.5 grams LV mass(C)dI 75.0 grams/m\S\2 SV(Teich) 49.0 ml SI(Teich) 25.4 ml/m\S\2 SV(cubed) 50.3 ml SI(cubed) 26.1 ml/m\S\2 Ao root diam 3.5 cm Ao root area 9.4 cm\S\2 ACS 1.7 cm asc Aorta Diam 3.5 cm LVOT diam 2.0 cm LVOT area 3.2 cm\S\2 LVAd ap4 23.5 cm\S\2 LVLd ap4 7.1 cm EDV(MOD-sp4) 60.8 ml EDV(sp4-el) 66.0 ml LVAs ap4 12.0 cm\S\2 LVLs ap4 5.5 cm ESV(MOD-sp4) 20.8 ml ESV(sp4-el) 22.3 ml EF(MOD-sp4) 65.7 % EF(sp4-el) 66.2 % LVAd ap2 22.2 cm\S\2 LVLd ap2 7.0 cm EDV(MOD-sp2) 56.6 ml EDV(sp2-el) 59.7 ml LVAs ap2 11.1 cm\S\2 LVLs ap2 5.5 cm ESV(MOD-sp2) 18.0 ml ESV(sp2-el) 19.0 ml EF(MOD-sp2) 68.2 % EF(sp2-el) 68.1 % LVLd %diff -1.22 % EDV(MOD-bp) 60.3 ml LVLs %diff 0.07 % ESV(MOD-bp) 19.5 ml EF(MOD-bp) 67.6 % SV(MOD-sp4) 39.9 ml SI(MOD-sp4) 20.7 ml/m\S\2 SV(MOD-sp2) 38.6 ml SI(MOD-sp2) 20.0 ml/m\S\2 SV(MOD-bp) 40.7 ml SI(MOD-bp) 21.1 ml/m\S\2 SV(sp4-el) 43.7 ml SI(sp4-el) 22.7 ml/m\S\2 SV(sp2-el) 40.7 ml SI(sp2-el) 21.1 ml/m\S\2 Doppler Measurements and Calculations MV E max cris 52.8 cm/sec MV A max cris 91.1 cm/sec MV E/A 0.58 MV dec time 0.63 sec Ao V2 max 109.1 cm/sec Ao max PG 4.8 mmHg Ao max PG (full) 2.4 mmHg DARWIN(V,A) 2.3 cm\S\2 DARWIN(V,D) 2.3 cm\S\2 LV V1 max PG 2.4 mmHg LV V1 max 77.5 cm/sec PA V2 max 76.0 cm/sec PA max PG 2.3 mmHg PA acc slope 598.3 cm/sec\S\2 PA acc time 0.10 sec TR max cris 233.1 cm/sec PA pr(Accel) 33.2 mmHg
[2017-04-28] VITALS (8 sets, daily range): BP systolic 125–161; BP diastolic 77–100; PULSE 64–78; TEMP 36.7–37; O2SAT 95–99
[2017-04-28] MEDS: ASPIRIN 325 MG ECTAB PO SCH (07:51)
[2017-04-28] MEDS: CLOPIDOGREL BISULFATE 75 MG TAB PO SCH (07:51)
[2017-04-28] MEDS: INSULIN ASPART 100 UNITS/ML 3 ML PEN SC SCH ×4 (07:54→20:50)
[2017-04-28] MEDS: INSULIN GLARGINE SOLOSTAR 100 UNITS/ML 3 ML PEN SC SCH ×2 (07:55→20:49)
[2017-04-28 08:39] LABS: BUN/CREATININE RATIO 15.9 (10-20); CALCIUM 9.3 mg/dl (8.5-10.1); CREATININE 1.5 mg/dl (0.60-1.40); POTASSIUM 4.3 mmol/L (3.5-5.1)
[2017-04-28] MEDS ORDERED: ATORVASTATIN 40 MG TAB PO SCH (09:00)
[2017-04-28] MEDS ORDERED: PROMETHAZINE HCL INJ 12.5 MG in SODIUM CHLORIDE 0.9% 50ML 50 ML IV PRN (10:30)
--- NOTE | 2017-04-28 15:53 | Neurology Progress Notes ---
Neurology Progress Note Date of Service Apr 28, 2017. Long Garcia is a 82 year old male who has a PMH symptomatic bradycardia, sick sinus syndrome, status post pacemaker placement, HTN, DL, past tobacco abuse, BPH. He states he started getting dizzy 5 days ago, increased with moving around. He had trouble crawling around his house and didn't want to seek medical attention. he was brought to ED given aspirin and A CAT scan showed acute- subacute infarct right cerebellar hemisphere, chronic small vessel ischemic change. He can not have an MRI due to his pacemaker. He states he lives alone and doesn't go to the doctor regularly. His daughter in law is a nurse here at the hospital and states he was on coumadin, lipid medication and depression medications but refused to take them. He lives alone and was found crawling on the floor to get around in his house. denies CP, SOB, abdominal pain, ones sided weakness, numbness, tingling, N, V, vision changes, swallowing issues. Objective Date Time Temp Pulse Resp B/P (MAP) Pulse Ox O2 Delivery O2 Flow Rate FiO2 04/28/17 15:17 36.7 74 16 145/89 (107) 97 Room Air 04/28/17 13:21 125/77 (93) 160/100 (120) 154/91 (112) 04/28/17 12:04 36.7 72 18 149/86 (107) 96 04/28/17 12:00 Room Air 04/28/17 08:17 36.9 64 18 156/88 (110) 98 04/28/17 08:00 Room Air 04/28/17 04:00 Room Air 04/28/17 02:50 37.0 72 18 161/89 (113) 96 Room Air 04/28/17 00:00 Room Air 04/27/17 23:20 36.8 70 16 141/82 (101) 96 Room Air 04/27/17 20:00 Room Air 04/27/17 19:20 36.9 70 22 137/87 (104) 96 Room Air 04/27/17 16:01 36.7 69 22 162/93 (116) 96 Room Air Last 24 Hours Test 04/27/17 16:05 04/27/17 20:16 04/28/17 06:40 04/28/17 07:34 Bedside Glucose 153 mg/dl 149 mg/dl 127 mg/dl Sodium Level 140 mmol/L Potassium Level 4.3 mmol/L Chloride Level 106 mmol/L Carbon Dioxide Level 28 mmol/L Anion Gap 6.0 mmol/L Blood Urea Nitrogen 24 mg/dl Creatinine 1.50 mg/dl Est Creatinine Clear Calc Drug Dose 36.6 ml/min Estimated GFR () 48.8 Estimated GFR (Non- 42.1 BUN/Creatinine Ratio 15.9 Random Glucose 143 mg/dl Calcium Level 9.3 mg/dl Test 04/28/17 11:00 Bedside Glucose 204 mg/dl Imaging: CT combo- Subacute infarct right cerebellar hemisphere. Considerable chronic small vessel change. No abnormal postcontrast enhancement. TTE * Left ventricular systolic function is normal. * The left ventricular wall motion is normal. * Ejection Fraction = 65-70%. * The right ventricle is normal size. * The right ventricular systolic function is normal as assessed by tricuspid annular plane systolic excursion (TAPSE) (normal >1.5 cm). * There is a pacemaker lead in the right ventricle. * Aortic valve sclerosis mild, without significant aortic valvular stenosis. * There is mild tricuspid regurgitation. * Doppler findings do not suggest pulmonary hypertension. * Grade I diastolic dysfunction, (abnormal relaxation pattern). * There is no evidence of atrial septal defect, but resolution does not allow assessment for a patent foramen ovale. Exam: Physical Exam: Constitutional: appearance nourished, obese Ears, Nose, Mouth and Throat: mucous membranes moist, no injection and skin normal, eyes normal Cardiovascular: normal S-1 and S-2 and regular rate and rhythm Respiratory: clear to auscultation (CTA) and no rales, rhonchi or wheeze Musculoskeletal: non pitting peripheral edema and good distal pulses Skin: no stigmata of neurocutaneous disease noted and normal and intact Eyes: extraocular muscles intact (EOMI) and pupils equal, round and reactive to light (PERRL) NEUROLOGIC EXAMINATION: Mental status: Alert and interactive Oriented [facility] president is Paulo, 2016 Oriented to person Speech fluent with no evidence of aphasia Cranial Nerves Normal findings for Cranial Nerves II - XII Reflexes: Deep tendon reflexes were symmetrical and graded 2/5. Plantar responses were flexor. Sensory: no sensory deficits Coordination: finger to nose bi pass and clumsiness on left Gait/Stance: Posture lying in bed Motor: Negative for pronator drift of out stretched arms with eyes closed. 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 ACHS SC 04/27/17 07:00 05/27/17 06:59 04/28/17 12:10 2 UNITS Glucose (Glucose 40% Gel) 15-30 GRAMS 15 GRAMS... UD PRN PO 04/27/17 00:45 05/27/17 00:44 Glucose (Glucose Chew Tab) 4-8 Tablets 4 Tabl... UD PRN PO 04/27/17 00:45 05/27/17 00:44 Dextrose (Dextrose 50% 50ML Syringe) 25-50ML OF 50% DW IV FOR... UD PRN IV 04/27/17 00:45 05/27/17 00:44 Glucagon (Glucagon Inj) 1 mg UD PRN SQ 04/27/17 00:45 05/27/17 00:44 Aspirin (Ecotrin Tab) 325 mg QAM PO 04/27/17 09:00 05/27/17 08:59 04/28/17 07:51 325 MG Miscellaneous Information (Pharmacist Discharge Med Rec Consult) 1 ea UD PRN N/A 04/27/17 00:45 05/27/17 00:44 Tramadol HCl (Ultram Tab) not relieved by tylenol @ Q6H PRN PO 04/27/17 00:45 05/27/17 00:44 Ondansetron HCl (Zofran Inj) 4 mg Q6H PRN IV 04/27/17 00:45 05/27/17 00:44 Meclizine HCl (Antivert Tab) 12.5 mg Q6H PRN PO 04/27/17 00:45 05/27/17 00:44 Ioversol (Optiray 320) 125 ml UD PRN IV 04/27/17 13:45 05/01/17 13:44 Atorvastatin Calcium (Lipitor Tab) 40 mg QAM PO 04/28/17 09:00 05/27/17 08:59 04/28/17 07:51 40 MG Clopidogrel Bisulfate (plAVix TAB) 75 mg QAM PO 04/28/17 09:00 05/28/17 08:59 04/28/17 07:51 75 MG Promethazine HCl 12.5 mg/Sodium Chloride 50.5 ml @ 204 mls/hr Q6H PRN IV 04/28/17 10:30 05/28/17 10:29 Impression 82 year old male 5 days of dizziness, radiographic stroke on CT head. Plan 1. CT head with and without contrast 2. continue aspirin 81 mg and would start plavix [address] head with and without is reviewed 3. optimize DL, DM, HTN 4. interrogate pacemaker 5. patient states he lives alone will need home safety check or alternative living arrangements 6. fall precautions 7. PT/OT speech for discharge needs 8. will follow up in our office in 3-4 weeks Arely Wall, PAC schedule I have seen and discussed above patient with Dr Daryn De Los Santos, neurology Patient seen and examined case discussed with Arely White today he is a bit improved but still dystaxic to right and with a clumsy right hand and is subjectively "dizzy" but no headache or symptoms that would suggest increased icp or worsening of cva in right cerebellar hemisphere echo sholw no cardiac source for emboli so go with asa and plavix, rehab medicine referral and assessment by social service regarding his post discharge situation Will follow up tomorrow Daryn De Los Santos MD
--- NOTE | 2017-04-28 17:42 | Progress Note ---
Internal Med Progress Note Date of Service: Apr 28, 2017. Provider Documentation: SUBJECTIVE: awake and alert , pleasant , conversing well , no dysarthria noted asking when he can go to rehab , willing to go to [facility] per Nursing -pt is still feels dizzy when standing up and having balance issues OBJECTIVE: Vital Signs-as noted below Exam: General-no sign of distress Eyes-sclera non icteric /PERRLA/EOMI ENT-NAD Neck-no JVD Lungs-CTA ,no wheeze or rales Heart-regular Abdomen-soft, non tender Extremities-no rash or deformity Neuro-no focal deficit noted except for gait instability Lab data as noted below. ASSESSMENT & PLAN: This is an 82 year old male with a PMH of sick sinus syndrome s/p PPM, hyperlipidemia, presents with acute-subacute CVA Acute to Subacute CVA patient presents with dizziness CT shows acute or subacute infarct in the right cerebellar hemisphere MRI of brain could not done due to presence of pacemaker CT with and without contrast : cont aspirin 81mg and Plavix 75mg daily increase Lipitor to 80mg for high intensity stain PT/OT/speech evals ordered pt will need need in patient rehab referral made for [facility] New diagnosed DM2 Ha1c = 7.8% pt has not been following with physicians in past he is okay with starting oral diabetic medications will likely start metformin on discharge , will need to wait for 48 hrs for recent contrast exposure continue sliding scale and Lantus while inpatient Sick Sinus Syndrome pacemaker interrogation as per neuro Thrombocytopenia chronic? unsure of the cause follow CBC while on dual antiplatelets -Aspirin and Plavix DVT ppx currently on full dose ASA and SCDs DNR DISPOSITION possible transfer to [facility] tomorrow Daughter in law given update over the phone Vital Signs: Date Time Temp Pulse Resp B/P (MAP) Pulse Ox O2 Delivery O2 Flow Rate FiO2 04/28/17 19:06 36.7 78 16 138/84 (102) 95 Room Air 04/28/17 16:00 Room Air 04/28/17 15:17 36.7 74 16 145/89 (107) 97 Room Air 04/28/17 13:21 125/77 (93) 160/100 (120) 154/91 (112) 04/28/17 12:04 36.7 72 18 149/86 (107) 96 04/28/17 12:00 Room Air 04/28/17 08:17 36.9 64 18 156/88 (110) 98 04/28/17 08:00 Room Air 04/28/17 04:00 Room Air 04/28/17 02:50 37.0 72 18 161/89 (113) 96 Room Air 04/28/17 00:00 Room Air 04/27/17 23:20 36.8 70 16 141/82 (101) 96 Room Air 04/27/17 20:00 Room Air 04/27/17 19:20 36.9 70 22 137/87 (104) 96 Room Air Lab Results: Results Past 24 Hours Test 04/27/17 20:16 04/28/17 06:40 04/28/17 07:34 04/28/17 11:00 Range/Units Bedside Glucose 149 127 204 70-99 mg/dl Sodium Level 140 136-145 mmol/L Potassium Level 4.3 3.5-5.1 mmol/L Chloride Level 106 98-107 mmol/L Carbon Dioxide Level 28 21-32 mmol/L Anion Gap 6.0 3-11 mmol/L Blood Urea Nitrogen 24 7-18 mg/dl Creatinine 1.50 0.60-1.40 mg/dl Est Creatinine Clear Calc Drug Dose 36.6 ml/min Estimated GFR () 48.8 Estimated GFR (Non- 42.1 BUN/Creatinine Ratio 15.9 10-20 Random Glucose 143 70-99 mg/dl Calcium Level 9.3 8.5-10.1 mg/dl Test 04/28/17 17:26 Range/Units Bedside Glucose 115 70-99 mg/dl
[2017-04-28] MEDS ORDERED: ASPEC325 PO ×2 (19:25→19:28)
[2017-04-28] MEDS ORDERED: ANT25 PO (19:25)
[2017-04-28] MEDS ORDERED: LPT40 PO (19:25)
[2017-04-28] MEDS ORDERED: PLV75 PO (19:25)
--- NOTE | 2017-04-28 19:27 | Discharge Instructions ---
Discharge Instructions Date of Service Apr 28, 2017. Admission Reason for Admission: CVA Discharge Discharge Diagnosis / Problem: ACUTE /SUBACUTE CVA ON RT CEREBELLAR REGION Discharge Goals Goal(s): Decrease discomfort, Improve disease control, Diagnostic testing, Therapeutic intervention Activity Recommendations Activity Level: Assistance Required Therapies: Physical Therapy, Occupational Therapy . Additional Information Patient informed of condition: Yes Advance Directives: Yes DNR: Yes Level of Care: Acute Rehab Communicable Disease: No Prognosis: Stable Shook Catheter: No Instructions / Follow-Up Instructions / Follow-Up FOLLOW UP WITH FAMILY PHYSICIAN AFTER DISCHARGE FROM REHAB NEUROLOGY FOLLOW UP IN 1 MONTHS Current Hospital Diet Patient's current hospital diet: Diabetes Type 2 Diet, AHA Diet (Heart Healthy) Discharge Diet Recommended Diet: AHA Diet (Heart Healthy), Diabetes Type 2 Diet Pending Studies Studies pending at discharge: no Laboratory Results Hemoglobin A1c Test 04/26/17 21:15 Range/Units Estimated Average Glucose 177 mg/dl Hemoglobin A1c 7.8 H 4.5-5.6 % Lipid Panel Test 04/27/17 06:51 Range/Units Triglycerides Level 115 0-150 mg/dl Cholesterol Level 156 0-200 mg/dl HDL Cholesterol 62 mg/dl Cholesterol/HDL Ratio 2.5 LDL Cholesterol, Calculated 71 mg/dl Medical Emergencies . Who to Call and When: Medical Emergencies: If at any time you feel your situation is an emergency, please call 911 immediately. . Non-Emergent Contact Non-Emergency issues call your: Primary Care Provider . . "Provider Documentation" section prepared by Keerthi Baker. . Core Measure Problem Core Measures: Stroke Stroke Core Measures Reason no t-PA for Stroke: Treatment not indicated Reason no antithrom by day 2: Treatment provided - N/A Reason no antithrom at D/C: Treatment provided - N/A Reason no statin at D/C: Treatment provided - N/A Reason no anticoag w/a fib: Treatment not indicated
[2017-04-28] MEDS: MECLIZINE HCL 25 MG TAB PO PRN (19:52)
[2017-04-28 20:01] LABS: URINE APPEARANCE CLEAR (CLEAR); URINE BILIRUBIN NEG (NEG); URINE COLOR YELLOW; URINE NITRITE NEG (NEG); URINE SPECIFIC GRAVITY 1.016 (1.000-1.030); UROBILINOGEN NEG (NEG); ZZUR CULT IF INDIC CLEAN CATCH NO
[2017-04-28 20:25] LABS: MANUAL MICROSCOPIC REQUIRED? NO; REVIEW REQ? NO
[2017-04-29] VITALS (9 sets, daily range): BP systolic 110–155; BP diastolic 69–91; PULSE 70–79; TEMP 36.5–37; O2SAT 95–98
[2017-04-29 07:43] LABS: HEMATOCRIT 42.3 % (42-52); MEAN CELL VOLUME 93.4 fL (80-100); MEAN CORPUSCULAR HEMOGLOBIN 33.6 pg (25-34); MEAN CORPUSCULAR HGB CONC 35.9 g/dl (32-36); MEAN PLATELET VOLUME 10.1 fL (7.4-10.4); PLATELET COUNT 109 K/uL (130-400); RED BLOOD COUNT 4.53 M/uL (4.7-6.1); WHITE BLOOD COUNT 7.37 K/uL (4.8-10.8)
[2017-04-29] MEDS: ATORVASTATIN 40 MG TAB PO SCH (07:51)
[2017-04-29] MEDS: CLOPIDOGREL BISULFATE 75 MG TAB PO SCH (07:51)
[2017-04-29] MEDS: ASPIRIN 325 MG ECTAB PO SCH (07:51)
[2017-04-29] MEDS: INSULIN ASPART 100 UNITS/ML 3 ML PEN SC SCH ×4 (07:54→20:47)
[2017-04-29] MEDS: INSULIN GLARGINE SOLOSTAR 100 UNITS/ML 3 ML PEN SC SCH ×2 (07:55→20:47)
--- NOTE | 2017-04-29 11:55 | Clinical Documentation Query ---
CLINICAL DOCUMENTATION QUERY Dr. HAGER, In your clinical opinion is this patient being managed for: (x ) Chronic kidney disease, stage 3 ( ) Not Agree ( ) Other explanation of clinical findings (Please Explain) ( ) Unable to determine (Please Define) ( ) Need to Discuss The medical record reflects the following clinical findings, treatment, and risk factors. Clinical Indicators: 82 yo male presenting with a CVA. Review of limited GFR range showed 39-42.1 Treatment: monitor PRP's Risk Factors: age, HTN, new onset DM II Please clarify and document your clinical opinion in the progress notes and discharge summary. Terms such as "probable", "suspected", "likely", "questionable", "possible", or "still to be ruled out" are acceptable. IF IN AGREEMENT, YOU MUST DOCUMENT ABOVE DIAGNOSTIC STATEMENT IN DAILY PROGRESS NOTES AND DISCHARGE SUMMARY. This document is not part of the patient's record. Thank You, June Bowden, RN [phone]
--- NOTE | 2017-04-29 14:38 | Neurology Progress Notes ---
Neurology Progress Note Date of Service Apr 29, 2017. Long Garcia is a 82 year old male who has a PMH symptomatic bradycardia, sick sinus syndrome, status post pacemaker placement, HTN, DL, past tobacco abuse, BPH. He states he started getting dizzy 5 days ago, increased with moving around. He had trouble crawling around his house and didn't want to seek medical attention. he was brought to ED given aspirin and A CAT scan showed acute- subacute infarct right cerebellar hemisphere, chronic small vessel ischemic change. He can not have an MRI due to his pacemaker. He states he lives alone and doesn't go to the doctor regularly. His daughter in law is a nurse here at the hospital and states he was on coumadin, lipid medication and depression medications but refused to take them. He lives alone and was found crawling on the floor to get around in his house. Today he states he is not sure if he is going to . He is agreeable to therapy because he is having problems with ambulation. denies CP, SOB, abdominal pain, ones sided weakness, numbness, tingling, N, V, vision changes, swallowing issues. Objective Date Time Temp Pulse Resp B/P (MAP) Pulse Ox O2 Delivery O2 Flow Rate FiO2 04/29/17 12:28 36.5 79 18 151/69 (96) 95 04/29/17 12:00 96 Room Air 04/29/17 08:13 36.8 79 18 148/79 (102) 96 04/29/17 08:00 96 Room Air 04/29/17 04:00 96 Room Air 04/29/17 04:00 36.9 70 110/69 (83) 96 Room Air 04/29/17 00:00 Room Air 04/28/17 23:30 36.8 68 16 148/99 (115) 99 Room Air 04/28/17 20:00 95 Room Air 04/28/17 19:06 36.7 78 16 138/84 (102) 95 Room Air 04/28/17 16:00 Room Air 04/28/17 15:17 36.7 74 16 145/89 (107) 97 Room Air Last 24 Hours Test 04/28/17 17:26 04/28/17 19:45 04/28/17 20:19 04/29/17 06:43 Bedside Glucose 115 mg/dl 170 mg/dl 159 mg/dl Urine Color YELLOW Urine Appearance CLEAR Urine pH 5.0 Urine Specific [place] 1.016 Urine Protein NEG Urine Glucose (UA) NEG Urine Ketones NEG Urine Occult Blood NEG Urine Nitrite NEG Urine Bilirubin NEG Urine Urobilinogen NEG Urine Leukocyte Esterase NEG Test 04/29/17 07:26 04/29/17 11:22 White Blood Count 7.37 K/uL Red Blood Count 4.53 M/uL Hemoglobin 15.2 g/dL Hematocrit 42.3 % Mean Corpuscular Volume 93.4 fL Mean Corpuscular Hemoglobin 33.6 pg Mean Corpuscular Hemoglobin Concent 35.9 g/dl RDW Standard Deviation 43.0 fL RDW Coefficient of Variation 12.6 % Platelet Count 109 K/uL Mean Platelet Volume 10.1 fL Bedside Glucose 181 mg/dl Imaging: no new imaging Exam: gen: alert NAD, knows he is in [facility], 2017, "mister hair" is the president PERRL/EOMI CV RRR lungs CTA UE bilaterally 5/5, 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 ACHS SC 04/27/17 07:00 05/27/17 06:59 04/29/17 12:10 3 UNITS Glucose (Glucose 40% Gel) 15-30 GRAMS 15 GRAMS... UD PRN PO 04/27/17 00:45 05/27/17 00:44 Glucose (Glucose Chew Tab) 4-8 Tablets 4 Tabl... UD PRN PO 04/27/17 00:45 05/27/17 00:44 Dextrose (Dextrose 50% 50ML Syringe) 25-50ML OF 50% DW IV FOR... UD PRN IV 04/27/17 00:45 05/27/17 00:44 Glucagon (Glucagon Inj) 1 mg UD PRN SQ 04/27/17 00:45 05/27/17 00:44 Aspirin (Ecotrin Tab) 325 mg QAM PO 04/27/17 09:00 05/27/17 08:59 04/29/17 07:51 325 MG Miscellaneous Information (Pharmacist Discharge Med Rec Consult) 1 ea UD PRN N/A 04/27/17 00:45 05/27/17 00:44 Tramadol HCl (Ultram Tab) not relieved by tylenol @ Q6H PRN PO 04/27/17 00:45 05/27/17 00:44 Ondansetron HCl (Zofran Inj) 4 mg Q6H PRN IV 04/27/17 00:45 05/27/17 00:44 Ioversol (Optiray 320) 125 ml UD PRN IV 04/27/17 13:45 05/01/17 13:44 Clopidogrel Bisulfate (plAVix TAB) 75 mg QAM PO 04/28/17 09:00 05/28/17 08:59 04/29/17 07:51 75 MG Promethazine HCl 12.5 mg/Sodium Chloride 50.5 ml @ 204 mls/hr Q6H PRN IV 04/28/17 10:30 05/28/17 10:29 Meclizine HCl (Antivert Tab) 25 mg Q8 PRN PO 04/28/17 18:00 05/28/17 17:59 04/28/17 19:52 25 MG Atorvastatin Calcium (Lipitor Tab) 80 mg QAM PO 04/29/17 09:00 05/27/17 08:59 04/29/17 07:51 80 MG Impression 82 year old male 5 days of dizziness, radiographic stroke on CT head. Plan 1. CT head with and without contrast 2. continue aspirin 81 mg and would start plavix 75 mg daily, dual therapy x 3 months and the aspirin for a lifetime 3. optimize DL, DM, HTN 4. interrogate pacemaker 5. patient states he lives alone will need home safety check or alternative living arrangements 6. fall precautions 7. PT/OT speech for discharge needs 8. will follow up in our office in 3-4 weeks Arely Wall, PAC schedule will sign off for now I have seen and discussed above patient with Dr Daryn De Los Santos, neurology Agree with above see my dictation Daryn De Los Santos MD
[2017-04-29] MEDS: MECLIZINE HCL 25 MG TAB PO PRN (16:01)
--- NOTE | 2017-04-29 16:43 | Progress Note ---
Internal Med Progress Note Date of Service: Apr 29, 2017. Provider Documentation: SUBJECTIVE: offers no complain except for occasional dizzy spell while getting up and attempt to walk pt mentions -he is not been out of bed that much no headache, no dizzy spell no weakness or paresthesia OBJECTIVE: Vital Signs-as noted below Exam: General-no sign of distress Eyes-sclera non icteric /PERRLA/EOMI ENT-NAD Neck-no JVD Lungs-CTA ,no wheeze or rales Heart-regular Abdomen-soft, non tender Extremities-no rash or deformity Neuro-no focal deficit noted except for gait instability Lab data as noted below. ASSESSMENT & PLAN: This is an 82 year old male with a PMH of sick sinus syndrome s/p PPM, hyperlipidemia, presents with acute-subacute CVA Acute to Subacute CVA patient presents with dizziness CT shows acute or subacute infarct in the right cerebellar hemisphere MRI of brain could not done due to presence of pacemaker CT with and without contrast : 1. Subacute infarct right cerebellar hemisphere. Considerable chronic small vessel change. No abnormal postcontrast enhancement. pt will continue on dual antiplatelets aspirin 81mg and Plavix 75mg daily for 3 months then reduce to Aspirin 81 ng daily for rest of life cont Lipitor to 80mg for high intensity stain PT/OT/speech evals ordered -appreciate input pt will need need in patient rehab referral made for [facility] New diagnosed DM2 Ha1c = 7.8% pt has not been following with physicians in past he is okay with starting oral diabetic medications will likely start metformin on discharge , will need to wait for next 24 hrs for recent contrast exposure ( CT head with contrast on 04/27/17 ) continue sliding scale and Lantus while inpatient CKD STAGE 3 : cr approx baseline 1.5 Dizzy spell /Gait disturbance : due to cerebellar infract cont PRN Meclizine fall precaution PT/OT eval Sick Sinus Syndrome pacemaker interrogation as per neuro Thrombocytopenia chronic? unsure of the cause follow CBC while on dual antiplatelets -Aspirin and Plavix DVT ppx currently on full dose ASA and SCDs DNR DISPOSITION transfer to [facility] awaiting insurance approval stable to transfer to Medical floor Vital Signs: Date Time Temp Pulse Resp B/P (MAP) Pulse Ox O2 Delivery O2 Flow Rate FiO2 04/29/17 16:03 36.7 72 16 155/91 (112) 98 Room Air 04/29/17 12:28 36.5 79 18 151/69 (96) 95 04/29/17 12:00 96 Room Air 04/29/17 08:13 36.8 79 18 148/79 (102) 96 04/29/17 08:00 96 Room Air 04/29/17 04:00 96 Room Air 04/29/17 04:00 36.9 70 110/69 (83) 96 Room Air 04/29/17 00:00 Room Air 04/28/17 23:30 36.8 68 16 148/99 (115) 99 Room Air 04/28/17 20:00 95 Room Air 04/28/17 19:06 36.7 78 16 138/84 (102) 95 Room Air Lab Results: Results Past 24 Hours Test 04/28/17 17:26 04/28/17 19:45 04/28/17 20:19 04/29/17 06:43 Range/Units Bedside Glucose 115 170 159 70-99 mg/dl Urine Color YELLOW Urine Appearance CLEAR CLEAR Urine pH 5.0 4.5-7.5 Urine Specific [place] 1.016 1.000-1.030 Urine Protein NEG NEG Urine Glucose (UA) NEG NEG Urine Ketones NEG NEG Urine Occult Blood NEG NEG Urine Nitrite NEG NEG Urine Bilirubin NEG NEG Urine Urobilinogen NEG NEG Urine Leukocyte Esterase NEG NEG Test 04/29/17 07:26 04/29/17 11:22 Range/Units White Blood Count 7.37 4.8-10.8 K/uL Red Blood Count 4.53 4.7-6.1 M/uL Hemoglobin 15.2 14.0-18.0 g/dL Hematocrit 42.3 42-52 % Mean Corpuscular Volume 93.4 80-100 fL Mean Corpuscular Hemoglobin 33.6 25-34 pg Mean Corpuscular Hemoglobin Concent 35.9 32-36 g/dl RDW Standard Deviation 43.0 36.4-46.3 fL RDW Coefficient of Variation 12.6 11.5-14.5 % Platelet Count 109 130-400 K/uL Mean Platelet Volume 10.1 7.4-10.4 fL Bedside Glucose 181 70-99 mg/dl
[2017-04-29] MEDS ORDERED: ASPEC81 PO (16:53)
[2017-04-29] MEDS ORDERED: METF500T5 PO ×2 (16:53)
--- NOTE | 2017-04-29 17:45 | PROGRESS NOTE ---
DATE: 04/29/2017 SUBJECTIVE: Jose looks better today. His speech is clear. He has got a little clumsiness of the right arm. He is little dystaxic to the right, all consistent with his recent subacute cerebellar infarct and his underlying small vessel vascular disease. He is being seen now by the [facility] coordinator. I suspect he will be going there within the next day or two. At this point, I think neurology is simply going to back out of the case and see him on an as-needed basis. He should be on aspirin and Plavix and after he is discharged from [facility], we probably have to look at him in about a month, but his primary need of course is going to be follow up with a primary care physician and I think the family is going to arrange this. He is also going to have to have a social situation analyzed as I really do not think this man should be living alone and I am not sure he should be operating a motor vehicle. 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 ONELIA
[2017-04-30 06:26] LABS: BASO % 0.3 %; BASO ABS # 0.02 K/uL (0-0.2); COMPLETE YES; HEMATOCRIT 44.5 % (42-52); IG% 0.4 %; LYMPH % 18.7 %; LYMPH ABS # 1.43 K/uL (1.2-3.4); MEAN CELL VOLUME 95.3 fL (80-100); MEAN CORPUSCULAR HEMOGLOBIN 32.1 pg (25-34); MEAN CORPUSCULAR HGB CONC 33.7 g/dl (32-36); MEAN PLATELET VOLUME 10.4 fL (7.4-10.4); NEUT % 66.6 %; PLATELET COUNT 129 K/uL (130-400); RED BLOOD COUNT 4.67 M/uL (4.7-6.1); WHITE BLOOD COUNT 7.63 K/uL (4.8-10.8)
[2017-04-30 06:55] LABS: BUN/CREATININE RATIO 17.4 (10-20); CALCIUM 8.8 mg/dl (8.5-10.1); CREATININE 1.8 mg/dl (0.60-1.40)
[2017-04-30 07:17] VITALS: BP 144/90; PULSE 70; TEMP 36.7; O2SAT 97
[2017-04-30] MEDS: ATORVASTATIN 40 MG TAB PO SCH (08:53)
[2017-04-30] MEDS: ASPIRIN 325 MG ECTAB PO SCH (08:54)
[2017-04-30] MEDS: CLOPIDOGREL BISULFATE 75 MG TAB PO SCH (08:54)
[2017-04-30] MEDS: INSULIN ASPART 100 UNITS/ML 3 ML PEN SC SCH ×2 (09:05→13:12)
[2017-04-30] MEDS: INSULIN GLARGINE SOLOSTAR 100 UNITS/ML 3 ML PEN SC SCH (09:05)
[2017-04-30] MEDS ORDERED: ONDANSETRON 4MG OD TAB PO PRN (09:45)
[2017-04-30 15:51] VITALS: BP 133/84; PULSE 70; TEMP 36.7; O2SAT 94
--- NOTE | 2017-04-30 16:09 | Progress Note ---
Internal Med Progress Note Date of Service: Apr 30, 2017. Provider Documentation: SUBJECTIVE: no new complain feels fine other than occasional dizzy spell when standing up waiting for rehab placement daughter present at bedside OBJECTIVE: Vital Signs-as noted below Exam: General-no sign of distress Eyes-sclera non icteric /PERRLA/EOMI ENT-NAD Neck-no JVD Lungs-CTA ,no wheeze or rales Heart-regular Abdomen-soft, non tender Extremities-no rash or deformity Neuro-no focal deficit noted except for gait instability Lab data as noted below. ASSESSMENT & PLAN: This is an 82 year old male with a PMH of sick sinus syndrome s/p PPM, hyperlipidemia, presents with acute-subacute CVA Acute to Subacute CVA patient presents with dizziness CT shows acute or subacute infarct in the right cerebellar hemisphere MRI of brain could not done due to presence of pacemaker CT with and without contrast : 1. Subacute infarct right cerebellar hemisphere. Considerable chronic small vessel change. No abnormal postcontrast enhancement. pt will continue on dual antiplatelets aspirin 81mg and Plavix 75mg daily for 3 months then reduce to Aspirin 81 ng daily for rest of life cont Lipitor to 80mg for high intensity stain PT/OT/speech evals ordered -appreciate input pt will need need in patient rehab pt denies of [facility] acute rehab by his insurance, ok for SNF referral made to [facility] per family recommendation New diagnosed DM2 Ha1c = 7.8% pt has not been following with physicians in past sliding scale and Lantus while inpatient he is okay with starting oral diabetic medications started metformin on discharge , can be started tomorrow ( has contrast exposure CT head > 48 hr back ) CKD STAGE 3 : cr approx baseline 1.5 Dizzy spell /Gait disturbance : due to cerebellar infract cont PRN Meclizine fall precaution PT/OT eval -will need rehab Sick Sinus Syndrome /sp pacemaker placement Thrombocytopenia chronic? unsure of the cause follow CBC while on dual antiplatelets -Aspirin and Plavix DVT ppx scd and teds ambulate DNR DISPOSITION transfer to [facility] for rehab today Daughter will provide transport Vital Signs: Date Time Temp Pulse Resp B/P (MAP) Pulse Ox O2 Delivery O2 Flow Rate FiO2 04/30/17 15:51 36.7 70 18 133/84 (100) 94 Room Air 04/30/17 08:00 Room Air 9/21/17 07:17 36.7 70 16 144/90 (108) 97 Room Air 04/30/17 00:05 Room Air 04/29/17 23:25 37.0 70 18 143/85 (104) 97 Room Air 04/29/17 20:05 Room Air 04/29/17 19:43 36.6 72 16 152/85 (107) 97 Room Air 04/29/17 19:14 36.7 72 16 98 Lab Results: Results Past 24 Hours Test 04/29/17 16:17 04/29/17 20:00 04/30/17 05:38 Range/Units Bedside Glucose 123 220 70-99 mg/dl White Blood Count 7.63 4.8-10.8 K/uL Red Blood Count 4.67 4.7-6.1 M/uL Hemoglobin 15.0 14.0-18.0 g/dL Hematocrit 44.5 42-52 % Mean Corpuscular Volume 95.3 80-100 fL Mean Corpuscular Hemoglobin 32.1 25-34 pg Mean Corpuscular Hemoglobin Concent 33.7 32-36 g/dl Platelet Count 129 130-400 K/uL Mean Platelet Volume 10.4 7.4-10.4 fL Neutrophils (%) (Auto) 66.6 % Lymphocytes (%) (Auto) 18.7 % Monocytes (%) (Auto) 9.0 % Eosinophils (%) (Auto) 5.0 % Basophils (%) (Auto) 0.3 % Neutrophils # (Auto) 5.08 1.4-6.5 K/uL Lymphocytes # (Auto) 1.43 1.2-3.4 K/uL Monocytes # (Auto) 0.69 0.11-0.59 K/uL Eosinophils # (Auto) 0.38 0-0.5 K/uL Basophils # (Auto) 0.02 0-0.2 K/uL RDW Standard Deviation 43.7 36.4-46.3 fL RDW Coefficient of Variation 12.7 11.5-14.5 % Immature Granulocyte % (Auto) 0.4 % Immature Granulocyte # (Auto) 0.03 0.00-0.02 K/uL Sodium Level 139 136-145 mmol/L Potassium Level 4.0 3.5-5.1 mmol/L Chloride Level 108 98-107 mmol/L Carbon Dioxide Level 24 21-32 mmol/L Anion Gap 7.0 3-11 mmol/L Blood Urea Nitrogen 31 7-18 mg/dl Creatinine 1.80 0.60-1.40 mg/dl Est Creatinine Clear Calc Drug Dose 30.5 ml/min Estimated GFR () 39.2 Estimated GFR (Non- 33.8 BUN/Creatinine Ratio 17.4 10-20 Random Glucose 143 70-99 mg/dl Calcium Level 8.8 8.5-10.1 mg/dl
--- NOTE | 2017-04-30 16:10 | Discharge Summary ---
Discharge Summary Date of Service Apr 30, 2017. Discharge Summary Admission Date: Apr 26, 2017 at 23:36 Discharge Date: Apr 29, 2017 Discharge Disposition: assisted facility ([facility] ) Principal Diagnosis: ACUTE /SUBACUTE CVA ON RT CEREBELLAR REGION Procedures: CT HEAD WITH AND WITH OUT CONTRAST : IMPRESSION: 1. Subacute infarct right cerebellar hemisphere. Considerable chronic small vessel change. No abnormal postcontrast enhancement. CAROTID DOPPLER : NO hemodynamically significant stenosis ECHO : Left ventricular systolic function is normal. The left ventricular wall motion is normal. Ejection Fraction = 65-70%. The right ventricle is normal size. The right ventricular systolic function is normal as assessed by tricuspid annular plane systolic excursion (TAPSE) (normal >1.5 cm). There is a pacemaker lead in the right ventricle. Aortic valve sclerosis mild, without significant aortic valvular stenosis. There is mild tricuspid regurgitation. Doppler findings do not suggest pulmonary hypertension. Grade I diastolic dysfunction, (abnormal relaxation pattern). There is no evidence of atrial septal defect, but resolution does not allow assessment for a patent foramen ovale. Consultations: Neurology Dr De Los Santos Medication Reconciliation New Medications: Aspirin (Aspirin EC Low Dose) 81 Mg Ectab 1 TAB PO DAILY for 30 Days, #30 Metformin Hcl Er (Glucophage Er) 500 Mg Tab 500 MG PO DAILY for 30 Days, #30 TAB start on 05/01/17 Atorvastatin (Atorvastatin Calcium) 40 Mg Tab 80 MG PO QAM for 30 Days, #60 TAB Clopidogrel Bisulfate (Clopidogrel) 75 Mg Tab 75 MG PO QAM for 30 Days, #30 TAB Meclizine HCl (Meclizine HCl) 25 Mg Tab 25 MG PO Q8 PRN for dizzy spell for 30 Days, #90 TAB Referrals At Discharge Follow up Referrals: Neurologist Referral - Within a Month with Daryn De Los Santos M.D. (MEDICINE) Admission Information HPI (per Admitting provider): DATE OF ADMISSION: 04/26/2017 PRIMARY CARE DOCTOR: Patient has no primary care doctor. Previous PCP is Asael Bailey PA-C. CHIEF COMPLAINT: Dizziness. HISTORY OF PRESENT ILLNESS: History is obtained from the patient, family, and records. Medical history is significant for symptomatic bradycardia sp PPM, Coumadin noncompliance, hypertension, borderline DM2, past tobacco abuse, BPH. Five days ago, the patient noted dizziness spinning, worse with moving around. Px crawling around his house. Did not want to go to the Emergency Room. Yesterday a friend of his advised him to take aspirin. No chest pain, no shortness of breath, no headache. Patient was brought to the Emergency Room with persistent symptoms. A CAT scan showed acute-subacute infarct right cerebellar hemisphere, chronic small vessel ischemic change. Patient was given additional aspirin in the Emergency Room. MEDICAL HISTORY: As above. He was seeing Dr. Laguerre, a pull worker from [place] many years ago. SURGERIES: Pacemaker placement, cholecystectomy, orthopedic procedures. HOME MEDICATIONS: None. ALLERGIES: No known drug allergies. FAMILY HISTORY: Heart disease. PERSONAL AND SOCIAL HISTORY: Past tobacco abuse, no alcohol. 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 Lives alone. REVIEW OF SYSTEMS: As per HPI, all other ROS negative. Physical Exam (per Admitting): PHYSICAL EXAMINATION: VITAL SIGNS: Blood pressure was noted to be pulse 150/110, pulse rate 72, RR 20, temperature 36.6, sats 95 on room air. GENERAL: Noted to be obese, comfortable, no respiratory distress. SKIN: Normal color. HEENT: [place] palpebral conjunctivae. Dry mucosa. lip asymmetry, L NECK: Short. CHEST: Decreased breath sounds. HEART: Diminished S1, S2. ABDOMEN: Soft. EXTREMITIES: No edema, no tenderness. NEUROLOGIC: No gross focality, except for lip asymmetry. Gait and stance not assessed. Hospital Course This is an 82 year old male with a PMH of sick sinus syndrome s/p PPM, hyperlipidemia, presents with acute-subacute CVA Acute to Subacute CVA patient presents with dizziness CT shows acute or subacute infarct in the right cerebellar hemisphere MRI of brain could not done due to presence of pacemaker CT with and without contrast : 1. Subacute infarct right cerebellar hemisphere. Considerable chronic small vessel change. No abnormal postcontrast enhancement. pt will continue on dual antiplatelets aspirin 81mg and Plavix 75mg daily for 3 months then reduce to Aspirin 81 ng daily for rest of life cont Lipitor to 80mg for high intensity stain PT/OT/speech evals ordered -appreciate input pt will need need in patient rehab pt denies of [facility] acute rehab by his insurance, ok for SNF referral made to [facility] per family recommendation New diagnosed DM2 Ha1c = 7.8% pt has not been following with physicians in past sliding scale and Lantus while inpatient he is okay with starting oral diabetic medications started metformin on discharge , can be started tomorrow ( has contrast exposure CT head > 48 hr back ) CKD STAGE 3 : cr approx baseline 1.5 Dizzy spell /Gait disturbance : due to cerebellar infract cont PRN Meclizine fall precaution PT/OT eval -will need rehab Sick Sinus Syndrome /sp pacemaker placement Thrombocytopenia chronic? unsure of the cause follow CBC while on dual antiplatelets -Aspirin and Plavix DVT ppx scd and teds ambulate DNR DISPOSITION transfer to [facility] for rehab today Daughter will provide transport Total time spent on discharge = 35 mins This includes examination of the patient, discharge planning, medication reconciliation, and communication with other providers. Discharge Instructions Discharge Instructions Date of Service Apr 28, 2017. Admission Reason for Admission: CVA Discharge Discharge Diagnosis / Problem: ACUTE /SUBACUTE CVA ON RT CEREBELLAR REGION Discharge Goals Goal(s): Decrease discomfort, Improve disease control, Diagnostic testing, Therapeutic intervention Activity Recommendations Activity Level: Assistance Required Therapies: Physical Therapy, Occupational Therapy . Additional Information Patient informed of condition: Yes Advance Directives: Yes DNR: Yes Level of Care: Acute Rehab Communicable Disease: No Prognosis: Stable Shook Catheter: No Instructions / Follow-Up Instructions / Follow-Up FOLLOW UP WITH FAMILY PHYSICIAN AFTER DISCHARGE FROM REHAB NEUROLOGY FOLLOW UP IN 1 MONTHS Current Hospital Diet Patient's current hospital diet: Diabetes Type 2 Diet, AHA Diet (Heart Healthy) Discharge Diet Recommended Diet: AHA Diet (Heart Healthy), Diabetes Type 2 Diet Pending Studies Studies pending at discharge: no Laboratory Results Hemoglobin A1c Test 04/26/17 21:15 Range/Units Estimated Average Glucose 177 mg/dl Hemoglobin A1c 7.8 H 4.5-5.6 % Lipid Panel Test 04/27/17 06:51 Range/Units Triglycerides Level 115 0-150 mg/dl Cholesterol Level 156 0-200 mg/dl HDL Cholesterol 62 mg/dl Cholesterol/HDL Ratio 2.5 LDL Cholesterol, Calculated 71 mg/dl Medical Emergencies . Who to Call and When: Medical Emergencies: If at any time you feel your situation is an emergency, please call 911 immediately. . Non-Emergent Contact Non-Emergency issues call your: Primary Care Provider . . "Provider Documentation" section prepared by Keerthi Baker. . Core Measure Problem Core Measures: Stroke Stroke Core Measures Reason no t-PA for Stroke: Treatment not indicated Reason no antithrom by day 2: Treatment provided - N/A Reason no antithrom at D/C: Treatment provided - N/A Reason no statin at D/C: Treatment provided - N/A Reason no anticoag w/a fib: Treatment not indicated
[2017-04-30 16:45] VITALS: BP 133/84; PULSE 70; TEMP 36.7; O2SAT 94
== END 2017-04-30 17:10 | DRG 65 ==
LOC: C.EDB 20:37 → C.2T 23:36 → ENRESERV 23:57 → C.MS4W 04-29 19:34
PROVIDERS: ADMIT Internal Medicine; ATTEND Hospitalist
DX: I63.9 Cerebral infarction, unspecified (principal); N17.9 Acute kidney failure, unspecified; I16.0 Hypertensive urgency; E11.9 Type 2 diabetes mellitus without complications; N18.3 Chronic kidney disease, stage 3 (moderate); R26.89 Other abnormalities of gait and mobility; R42 Dizziness and giddiness; I45.9 Conduction disorder, unspecified; D69.6 Thrombocytopenia, unspecified; Z66 Do not resuscitate; Z95.0 Presence of cardiac pacemaker; Z87.891 Personal history of nicotine dependence; Z91.14 Patient's other noncompliance with medication regimen

== ENCOUNTER 2019-07-03 19:47 | Inpatient (IN) ==
[2019-07-03] MEDS ORDERED: cefTRIAXone SODIUM 2,000 MG/70 ML BAG IV STA (20:22)
[2019-07-03 21:06] LABS: Basophils # (auto) 0.02 K/uL (0-0.2); Basophils % (auto) 0.3 %; Eosinophils # (auto) 0.03 K/uL (0-0.5); Eosinophils % (auto) 0.4 %; Hematocrit (blood only) 41.4 % (42-52); Hemoglobin 14.6 g/dL (14.0-18.0); Immature Granulocytes # (auto) 0.02 K/uL (0.00-0.02); Immature Granulocytes % (auto) 0.3 %; Lymphocytes % (auto) 13.1 %; Mean Corpuscular Hemoglobin 35.4 pg (25-34); Mean Corpuscular Hgb Conc 35.3 g/dL (32-36); Mean Corpuscular Volume 100.5 fL (80-100); Mean Platelet Volume 10.4 fL (7.4-10.4); Monocytes # (auto) 0.79 K/uL (0.11-0.59); Monocytes % (auto) 11.5 %; Neutrophils # (auto) 5.13 K/uL (1.4-6.5); Neutrophils % (auto) 74.4 %; Platelet Count 85 K/uL (130-400); RDW Standard Deviation 47.9 fL (36.4-46.3); Red Blood Count 4.12 M/uL (4.7-6.1); White Blood Count 6.89 K/uL (4.8-10.8)
[2019-07-03] MEDS ORDERED: VANCOMYCIN CONSULT ACTIVE PRN ×2 (21:26→23:39)
[2019-07-03] MEDS ORDERED: VANCOMYCIN HCL 2,000 MG in SODIUM CHLORIDE 0.9% 500 ML IV ONE (21:26)
[2019-07-03 21:39] LABS: BUN Creatinine Ratio 15.5 (10-20); Calcium 9.1 mg/dl (8.5-10.1); Creatinine Clr Calc Pharmacy 29.8 ml/min; Est GFR (African American) 36.7; Est GFR (Non-African American) 31.6; Potassium 4.1 mmol/L (3.5-5.1)
[2019-07-03] MEDS ORDERED: ACYCLOVIR SOD IV ONE (21:45)
[2019-07-03] MEDS ORDERED: DEXTROSE 5% IV ONE (21:45)
[2019-07-03] MEDS ORDERED: PROPARACAINE 0.5% OP SOLN PER DROP CHARGE OP ONE (21:50)
[2019-07-03] MEDS ORDERED: PROPARACAINE 0.5% 225 DROPS/15 ML BTL ONE (21:58)
--- NOTE | 2019-07-03 22:39 | History & Physical Report ---
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 presents with left- sided facial lesions and erythema x6 days Left-sided facial cellulitis and lesions Concern for impetigo versus erysipelas versus bacterial infection superimposed on herpes zoster infection Afebrile, no WBC elevation, no systemic symptoms Started on vancomycin and acyclovir 800 mg 5 times per day Continue to follow clinically for improvement CKD 3 BUN/creatinine 29/1.8 -baseline around 1.8 Continue to monitor BMP in the setting of Vanco and acyclovir Chronic thrombocytopenia Unknown cause Platelet 85, was 89 and 03/27/19 Monitor CBC DM2 Continue home Lantus On SSI Hypertension Continue home losartan Stroke Continue home aspirin and atorvastatin Depression/dementia Continue home omeprazole and citalopram FEN/GI: DM2 diet DVT prophylaxis: Low risk, SCDs, encourage ambulation Code: DNR/DNI per discussion with daughter Disposition: MedSurg (2) Zoster: (3) Pacemaker: (4) CVA (cerebral vascular accident): (5) Depression: (6) Dementia: (7) HTN (hypertension): (8) DM2 (diabetes mellitus, type 2): History of Present Illness Chief Complaint: Facial rash and erythema Primary Care Provider: Pratik Fragoso 84-year-old male with history of right cerebellar stroke in 2017, DM 2, CKD 3, sick sinus syndrome status post pacemaker placement, chronic thrombocytopenia and 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 Patient was evaluated in the ED yesterday and started on Keflex and acyclovir for concern of shingles. Patient's daughter brought him back today for concern of worsening erythema now involving periocular region. Patient is having some purulent left eye drainage. Patient was taking medications as prescribed. Denies any fever, chills, lightheadedness, headache, vision changes, chest pain, shortness of breath, abdominal pain, vomiting, diarrhea, constipation, dysuria, hematuria. Social history: Brief history of smoking 8 years ago, no alcohol intake or recreational drug use Surgical history: Cholecystectomy and right hip replacement, pacemaker placement Allergies Allergy/AdvReac Type Severity Reaction Status Date / Time No Known Allergies Allergy Unverified 07/03/19 20:43 Home Medications Home Medications Medication Instructions Recorded Confirmed Type acetaminophen [Tylenol Extra 1,000 mg PO BID 12/19/18 07/03/19 History Strength] aspirin 81 mg PO QAM 12/19/18 07/03/19 History atorvastatin 40 mg PO HS 12/19/18 07/03/19 History citalopram 20 mg PO QAM 12/19/18 07/03/19 History linagliptin [Tradjenta] 5 mg PO QAM 12/19/18 07/03/19 History losartan 25 mg PO DAILY 12/19/18 07/03/19 History trazodone 25 mg PO HS 12/19/18 07/03/19 History acyclovir 800 mg PO 5XD 7 Days #35 tab 07/02/19 07/03/19 Rx cephalexin 500 mg PO BID 7 Days #14 tab 07/02/19 07/03/19 Rx donepezil 5 mg PO HS 07/02/19 07/03/19 History insulin glargine [Basaglar KwikPen 20 unit SUBCUT QAM 07/02/19 07/03/19 History U-100 Insulin] psyllium husk [Metamucil] 1 tbsp PO DAILY 07/02/19 07/03/19 History Past Med/Surg History Medical History Bradyarrhythmia (Resolved) CVA (cerebral vascular accident) Depression Pacemaker (Chronic) Family History Other Family history non-contributory Social History Preferred Language: Norwegian Communication Ability: Effective Fur Dry Cleaner Required: No Beliefs That Will Affect Care: None marital status: / Current Living Situation: Alone current occupational status: retired Feels Safe at Home: Yes Safety Concerns: Feels Safe At This Time Smoking Status: Never smoker Hx Alcohol Use: No Hx Substance Use: No Review of Systems Review of Systems: As per HPI Physical Exam Physical Exam: General: In NAD HEENT: L eye - no ocular lesion or conjunctival injection, some purulent drainage near punctum, PERRL, EOMI intact and no pain reported; moist oral mucosa Skin: L sided facial erythema - intense and involves perioral to lower eyelid region a/w perioral and V3 distribution lesions with honey colored crusting, mild TTP, indurated, no fluctuance appreciated Pulm: CTAB equal breath sounds bilaterally CV: RRR, no m/r/g, cap refill 2 secs Abdomen:+BS, no TTP in all quadrants, non-distended LE: no LE edema, no calf TTP Results & Data Vital Signs (Past 12 Hours) Vital Signs Temp Pulse Pulse Resp BP BP Pulse Ox 07/03/19 22:32 91 H 20 118/77 93 07/03/19 21:06 81 20 132/75 92 07/03/19 19:54 37.3 C 79 20 137/75 91 Laboratory Results Abnormal lab results 07/03/19 07/03/19 Range/Units 20:54 20:54 RBC 4.12 L (4.7-6.1) M/uL Hct 41.4 L (42-52) % MCV 100.5 H (80-100) fL MCH 35.4 H (25-34) pg RDW Std Deviation 47.9 H (36.4-46.3) fL Plt Count 85 L (130-400) K/uL Lymph # (Auto) 0.90 L (1.2-3.4) K/uL [place] # (Auto) 0.79 H (0.11-0.59) K/uL Chloride 111 H (98-107) mmol/L BUN 29 H (7-18) mg/dl Creatinine 1.88 H (0.6-1.4) mg/dl Glucose 197 H (70-99) mg/dl Medications Administered Current Inpatient Medications Vancomycin HCl 2,000 mg/ (Sodium Chloride) 540 mls @ 200 mls/hr IV NOW ONE Stop: 07/04/19 00:07 Miscellaneous Information (Consult) 1 ea N/A UD PRN PRN Reason: Consult Stop: 08/02/19 21:25 Code Status & VTE Plan Code Status DNR/DNI VTE Prophylaxis Plan VTE Prophylaxis will be ordered: Yes Supervising Physician Co-Signing Physician Notes Patient seen and examined, chart reviewed, case discussed with Dr. Eaton and I agree with her assessment and plan as documented above. Briefly, patient is an 84yo C male presenting with left facial cellulitis. He was seen in the ER previously and prescribed Acyclovir and Keflex which he has been taking without improvement. No systemic evidence of infection. No ocular involvement, EOMI and no pain with eye movement On exam his is afebrile, HD stable Left face with well circumscribed area of erythema/warm skin from jaw to lower eye lid. Multiple open lesions on the chin with yellow crusts. No vescicles. +tender to palpation Assessment/Plan - 84yo C male with facial cellulitis - suspect strep/staph, possible Zoster as well although no clear vescicles at this time -Vancomycin -Acyclovir -Closely monitor renal function -Remainder of plan as above Resident Activity Tracking Resident Involvement: Resident Care Provided Care Provided: Adult Hospital Medicine (1) Zoster Herpes zoster complications: without complications Qualified Code(s): B02.9 - Zoster without complications (2) Cellulitis Site of cellulitis: unspecified site Qualified Code(s): L03.90 - Cellulitis, unspecified
[2019-07-03] MEDS ORDERED: ONDANSETRON INJ 2 MG/ML 2 ML VIAL IV PRN (23:39)
[2019-07-03] MEDS ORDERED: ACETAMINOPHEN 500 MG TAB PO STA (23:43)
[2019-07-03] MEDS ORDERED: DEXTROSE 50% 50 ML SYRINGE IV PRN (23:45)
[2019-07-03] MEDS ORDERED: GLUCOSE 40% GEL 15 GM TUBE PO PRN (23:45)
[2019-07-03] MEDS ORDERED: GLUCAGON FOR INJ 1 MG VIAL IM PRN (23:45)
[2019-07-03] MEDS ORDERED: GLUCOSE 10 TABS/TUBE PO PRN (23:45)
[2019-07-03] MEDS ORDERED: CARBOHYDRATES FOR HYPOGLYCEMIA PO PRN (23:45)
--- NOTE | 2019-07-04 03:31 | Billing Data ---
Coding Level of Care Code 62185 OBS Care - Level 3
[2019-07-04 07:00] LABS: Hematocrit (blood only) 40.7 % (42-52); Hemoglobin 13.7 g/dL (14.0-18.0); Mean Corpuscular Hemoglobin 33.7 pg (25-34); Mean Corpuscular Hgb Conc 33.7 g/dL (32-36); Mean Corpuscular Volume 100.2 fL (80-100); RDW Standard Deviation 47.5 fL (36.4-46.3); Red Blood Count 4.06 M/uL (4.7-6.1); White Blood Count 5.94 K/uL (4.8-10.8)
[2019-07-04 07:07] LABS: Mean Platelet Volume 10.5 fL (7.4-10.4); Platelet Count 88 K/uL (130-400)
[2019-07-04] MEDS: ACYCLOVIR 400 MG TAB PO SCH ×5 (07:15→22:17)
[2019-07-04 07:29] LABS: BUN Creatinine Ratio 13.8 (10-20); Calcium 9.3 mg/dl (8.5-10.1); Creatinine Clr Calc Pharmacy 32.1 ml/min; Est GFR (African American) 41.4; Est GFR (Non-African American) 35.7; Potassium 3.9 mmol/L (3.5-5.1)
[2019-07-04 07:33] LABS: Basophils # (auto) 0.02 K/uL (0-0.2); Basophils % (auto) 0.3 %; Eosinophils # (auto) 0.08 K/uL (0-0.5); Eosinophils % (auto) 1.3 %; Immature Granulocytes # (auto) 0.04 K/uL (0.00-0.02); Immature Granulocytes % (auto) 0.7 %; Lymphocytes # (auto) 1.02 K/uL (1.2-3.4); Lymphocytes % (auto) 17.2 %; Monocytes # (auto) 0.98 K/uL (0.11-0.59); Monocytes % (auto) 16.5 %; RBC Morphology Unremarkable
--- NOTE | 2019-07-04 08:51 | Pharmacy Report ---
Pharmacy Abx Initial Consult - Date of Service July 04, 2019 - Pharmacy Dosing Scope Date of Consult: 07/03 Consultation requested by: Dr. Eaton Pharmacy is consulted to initiate vancomycin IV/PO dosing therapy, order appropriate labs and adjust drug dose/frequency. - Subjective The patient is a 84 year old M admitted on 07/03/19 22:38. - Objective Height: 5 ft 5 in Weight: 89.7 kg Vital Signs (Past 12hrs): Vital Signs Temp Pulse Resp BP BP Pulse Ox Pulse Ox 07/04/19 07:58 36.8 C 83 16 164/86 H 93 07/03/19 23:30 37 C 85 14 149/98 H 92 92 07/03/19 22:32 91 H 20 118/77 93 07/03/19 21:06 81 20 132/75 92 Lab Results (24hrs): Laboratory Tests (24 Hours) 07/04/19 07/04/19 07/03/19 05:49 05:49 20:54 WBC 5.94 Neut # (Auto) 3.80 Creatinine 1.70 H 1.88 H Est Cr Clr Drug Dosing 32.1 29.8 - Risk Factors for Resistance * Antimicrobial use within the last 90 days [keflex and acyclovir prescribed 07/02] - Assessment & Plan Assessment 84 year old male recently seen in ER 07/02 and started on keflex and acyclovir for concern of shingles/ssti after presenting with left sided facial lesions and erythema. Brought back to hospital yesterday due to worsening symptoms and possible involvement of periocular region. Purulent left eye drainage noted. Received one time dose of rocephin in ER and started on vancomycin for possible bacterial infection/ssti. Continued on acyclovir for herpes zoster/shingles. Plan Vancomycin IV * Received loading dose of vancomycin 2000 mg (~22 mg/kg) last evening in the ED * Will start maintenance dose of vancomycin 1250 mg (~14 mg/kg) iv q 24 hrs to achieve an estimated trough ~15 mcg/ml (goal for cellulitis) * Estimated kinetics: t1/2~22 hrs, ke~0.031 hr-1, CrCl ~32 ml/min * Will plan to obtain a trough in next 2-3 days if vancomycin is to be continued >48 hrs Pharmacy will continue to follow and will adjust dose/frequency as necessary. Thank you.
[2019-07-04] MEDS: INSULIN ASPART 100 UNITS/ML 3 ML PEN SC SCH ×4 (09:32→21:44)
[2019-07-04] MEDS: INSULIN GLARGINE SOLOSTAR 100 UNITS/ML 3 ML PEN SQ SCH (09:33)
[2019-07-04] MEDS: CITALOPRAM 20 MG TAB PO SCH (09:34)
[2019-07-04] MEDS: LOSARTAN POTASSIUM 25 MG TAB PO SCH (09:34)
[2019-07-04] MEDS: ASPIRIN 81 MG ECTAB PO SCH (09:34)
[2019-07-04] MEDS: PSYLLIUM 58.6% POWDER PACKET PO SCH (09:35)
[2019-07-04] MEDS: ACETAMINOPHEN 500 MG TAB PO SCH ×2 (09:36→21:36)
[2019-07-04] MEDS ORDERED: VANCOMYCIN HCL 1,000 MG in SODIUM CHLORIDE 0.9% 250 ML IV SCH (12:00)
--- NOTE | 2019-07-04 19:32 | Hospitalist Progress Note ---
Date of Service July 04, 2019 Assessment & Plan (1) Cellulitis: Secondary facial cellulitis due to shingles with failed outpatient treatment with IV ceftriaxone given in the ER on , subsequently switched to p.o. Keflex. He appears to be responding to IV vancomycin. Will continue for 48 hours and depending on clinical course switch to Bactrim for completion of cellulitis treatment started late on therefore switch planned for . (2) Zoster: Left maxillary distribution. No ophthalmic involvement. No ear pain or vesicles and auditory canal to suggest Tomas Harris syndrome. Continue acyclovir 800 mg 5 times daily for 7 days. (3) Pacemaker: (4) CVA (cerebral vascular accident): (5) Depression: (6) Dementia: Continue Aricept (7) HTN (hypertension): Continue losartan 25 mg p.o. daily. (8) DM2 (diabetes mellitus, type 2): Restart linagliptin Continue Lantus (9) DVT prophylaxis: Heparin 5000 SQ every 12 hourly (10) Discharge planning issues: Lives alone. Discussed with [id number] (JULIETA Jean-Baptiste) and some concern he would not manage well at home with ongoing treatment for this. Requested PT and OT eval's. Aim for discharge Thursday depending on clinical improvement. Subjective Patient unable to given me much of history due to baseline cognitive state with known dementia. He reports he is feeling well. Lesions and cellulitis on face non painful as per patient, he feels it is getting better but unable to tell me why he thinks this. He denies any vision of hearing changes. No tinnitus. Discussed with his daughter in law (Jerilyn) who works as a nurse here and had the code word. She was able to show me pictures that the lesions looked more blistering previously. He was given ceftriaxone on Thursday but despite this the cellulitis appeared to get worse and he returned to the ER the following day. He does not appear to be septic from this. He is at his baseline as per Jerilyn although even at his baseline there is a question whether he is safe at home with his baseline of dementia. Review of Systems Review of Systems: All systems reviewed & are unremarkable except as noted in HPI & below Physical Exam Constitutional: well developed and well nourished; no acute distress Eyes: normal visual mcguire by confrontation, PERRL and EOM intact bilaterally (No diplopia) ENMT: external ear and nose normal, oropharynx normal Ears: no EAC abnormality and no TM abnormality Neck: trachea midline Respiratory: normal respiratory effort, lungs clear to auscultation Cardiovascular: RRR, no murmur, no edema Skin: warmth and erythema surrounding crusting yellow lesions in a V2 distribution on left side of his face. No lesions outside this dermatome. Neurologic: awake; not confused Cranial Nerves: PERRL and EOM intact bilaterally Psychiatric: Orientation: alert and oriented to person; + not oriented to place and + not oriented to time Results & Data Vital Signs (Past 12 Hours) Vital Signs Temp Pulse Resp BP Pulse Ox 07/04/19 16:33 168/88 H 07/04/19 15:27 98.2 F 78 18 172/94 H 96 07/04/19 07:58 98.2 F 83 16 164/86 H 93 PG Care Time/CCT Total # of Minutes Spent Total Time Spent with Patient: Total time spent is greater than 50% in coordination of care (as documented) at patient's floor/unit and/or counseling patient: (1) Zoster Herpes zoster complications: without complications Qualified Code(s): B02.9 - Zoster without complications (2) DM2 (diabetes mellitus, type 2) 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
[2019-07-04] MEDS ORDERED: HEPARIN SOD 5,000 UNIT/0.5 ML VIAL SQ STA (21:08)
[2019-07-04] MEDS: ATORVASTATIN 40 MG TAB PO SCH (21:35)
[2019-07-04] MEDS: TRAZODONE HCL 50 MG TAB PO SCH (21:35)
[2019-07-04] MEDS: DONEPEZIL HCL 5 MG TAB PO SCH (21:35)
[2019-07-04] MEDS: VANCOMYCIN HCL 1,250 MG in SODIUM CHLORIDE 0.9% 250 ML IV SCH (21:36)
--- NOTE | 2019-07-04 23:02 | Emergency Department Note ---
History of Present Illness General Chief complaint: Skin Problem Stated complaint: SHINGLES, CELLULITIS, WORSENING Time Seen by Provider: 07/03/19 20:06 Source: patient, family, RN notes reviewed and old records reviewed Mode of arrival: ambulatory Limitations: no limitations History of Present Illness Provider complaint: facial cellulitis Onset (ago): day(s) 2 Location: face Radiation: non-radiation Severity: mild Pain Consistency: + other Maximum Pain Intensity: 0 Current Pain Intensity: 0 Quality: + burning Relieved By: + rest Exacerbated By: + movement Associated symptoms: + denies other symptoms Treatments prior to arrival: other (Keflex, Valtrex) This is a 84-year-old male who presents emergency department complaining of left-sided facial cellulitis. The patient was started on Rocephin Keflex and Valtrex yesterday. The facial cellulitis has become worse so his family has brought him back to the emergency department. He has not taken anything for pain. He denies any fevers nausea vomiting. Home Medications Home Medications Medication Instructions Recorded Confirmed Type acetaminophen [Tylenol Extra 1,000 mg PO BID 12/19/18 07/03/19 History Strength] aspirin 81 mg PO QAM 12/19/18 07/03/19 History atorvastatin 40 mg PO HS 12/19/18 07/03/19 History citalopram 20 mg PO QAM 12/19/18 07/03/19 History linagliptin [Tradjenta] 5 mg PO QAM 12/19/18 07/03/19 History losartan 25 mg PO DAILY 12/19/18 07/03/19 History trazodone 25 mg PO HS 12/19/18 07/03/19 History acyclovir 800 mg PO 5XD 7 Days #35 tab 07/02/19 07/03/19 Rx cephalexin 500 mg PO BID 7 Days #14 tab 07/02/19 07/03/19 Rx donepezil 5 mg PO HS 07/02/19 07/03/19 History insulin glargine [Basaglar KwikPen 20 unit SUBCUT QAM 07/02/19 07/03/19 History U-100 Insulin] psyllium husk [Metamucil] 1 tbsp PO DAILY 07/02/19 07/03/19 History Allergies Allergy/AdvReac Type Severity Reaction Status Date / Time No Known Allergies Allergy Unverified 07/03/19 20:43 Past Med/Surg History Medical History Bradyarrhythmia (Resolved) CVA (cerebral vascular accident) Depression Pacemaker (Chronic) Family History Other Family history non-contributory Social History Preferred Language: Icelandic Communication Ability: Effective Outsole Cementer Required: No Beliefs That Will Affect Care: None marital status: / Current Living Situation: Alone current occupational status: retired Feels Safe at Home: Yes Safety Concerns: Feels Safe At This Time Smoking Status: Never smoker Hx Alcohol Use: No Hx Substance Use: No Review of Systems A total of 10 systems reviewed and were otherwise negative Physical Exam Vital Signs Vital Signs - 24 hr 07/03/19 23:30 07/04/19 07:58 07/04/19 08:00 Temperature 37 C 36.8 C Temperature Source Oral Oral Pulse Rate [Finger] 85 83 Pulse Rhythm [Finger] Regular Pulse Strength [Finger] Normal Respiratory Rate 14 16 Respiratory Effort / Characteristics Non-Labored Spontaneous Non-Labored Spontaneous Respiratory Depth Normal Normal Normal Respiratory Pattern Regular Regular Blood Pressure [Left Arm] 149/98 H 164/86 H Blood Pressure Mean [Left Arm] 115 112 Blood Pressure Position [Left Arm] Sitting Lying Pulse Oximetry 92 93 Pulse Oximetry [Right Index Finger] 92 Oxygen Delivery Method Room Air Room Air Room Air Oxygen Delivery Method [Right Index Finger] Room Air GENERAL: Patient is a healthy-appearing well-nourished male HEAD: Normocephalic atraumatic EYES: Ocular movements intact pupils equal and react to light OROPHARYNX mucous membranes are moist no exudates present no erythema or edema present NECK: Supple no nuchal rigidity CHEST: Good equal expansion LUNGS: Clear and equal to auscultation CARDIAC: Normal S1 and S2 ABDOMEN: Soft nontender no guarding BACK: No CVA tenderness EXTREMITIES: No pain upon palpation normal muscle strength in all groups no clubbing cyanosis or edema NEURO: Patient is following commands is answering questions appropriately. Alert and oriented x3 Cranial Nerves 2-12 grossly intact SKIN: Pt has facial cellulitis in pattern of dematome to left side of face. EYE: Anterior and posterior chambers normal. No evidence of zoster on fluoroscene stain. Course Administered Medications Acetaminophen (Tylenol) 1,000 mg PO BID [facility] Stop: 08/03/19 08:59 Last Admin: 07/04/19 21:36 Dose: 1,000 mg Documented by: [id number] Admin: 07/04/19 09:36 Dose: 1,000 mg Documented by: [id number] Acyclovir (Zovirax) 800 mg PO [id number] [facility] Stop: 07/14/19 06:59 Last Admin: 07/04/19 22:17 Dose: 800 mg Documented by: [id number] Admin: 07/04/19 18:19 Dose: 800 mg Documented by: [id number] Admin: 07/04/19 15:12 Dose: 800 mg Documented by: [id number] Admin: 07/04/19 12:16 Dose: 800 mg Documented by: [id number] Admin: 07/04/19 07:15 Dose: 800 mg Documented by: [id number] Aspirin (Ecotrin Ectab) 81 mg PO [facility] Stop: 08/03/19 08:59 Last Admin: 07/04/19 09:34 Dose: 81 mg Documented by: [id number] Atorvastatin Calcium (Lipitor) 40 mg PO [facility] Stop: 08/03/19 20:59 Last Admin: 07/04/19 21:35 Dose: 40 mg Documented by: [id number] Cital[facility]) [facility] Stop: 08/03/19 08:59 Last Admin: 07/04/19 09:34 Dose: 20 mg Documented by: [id number] Donepezil HCl (Aricept) 5 mg PO [facility] Stop: 08/03/19 20:59 Last Admin: 07/04/19 21:35 Dose: 5 mg Documented by: [id number] Vancomycin HCl 1,250 mg/ (Sodium Chloride) 275 mls @ 125 mls/hr IV DAILY@2200 [facility] Stop: 07/14/19 21:59 Last Admin: 07/04/19 21:36 Dose: 125 mls/hr Documented by: [id number] Insulin Aspart (Novolog Flexpen) 0 units SC ACHS [facility] Stop: 08/03/19 07:29 Last Admin: 07/04/19 21:44 Dose: Not Given Documented by: [id number] Cosigned by: [id number] Admin: 07/04/19 18:19 Dose: 4 units Documented by: [id number] Cosigned by: [id number] Admin: 07/04/19 13:25 Dose: 6 units Documented by: [id number] Cosigned by: [id number] Admin: 07/04/19 09:32 Dose: 2 units Documented by: [id number] Cosigned by: [id number] Insulin Glargine (Lantus Solostar Pen) 20 units SQ QAM [facility] Stop: 08/03/19 08:59 Last Admin: 07/04/19 09:33 Dose: 20 units Documented by: [id number] Cosigned by: [id number] Losartan Potassium (Cozaar) 25 mg PO DAILY [facility] Stop: 08/03/19 08:59 Last Admin: 07/04/19 09:34 Dose: 25 mg Documented by: [id number] Miscellaneous (Order Awaiting Action) 1 ea N/A QS [facility] Stop: 08/03/19 21:59 Last Admin: 07/04/19 22:16 Dose: Not Given Documented by: [id number] Psyllium Hydrophilic Mucilloid (Metamucil) 1 pkt PO DAILY [facility] Stop: 08/03/19 08:59 Last Admin: 07/04/19 09:35 Dose: Not Given Documented by: [id number] Trazodone HCl (Desyrel) 25 mg PO HS [facility] Stop: 08/03/19 20:59 Last Admin: 07/04/19 21:35 Dose: 25 mg Documented by: [id number] Discontinued Medications Acetaminophen (Tylenol) 1,000 mg PO ONE STA Stop: 07/03/19 23:44 Last Admin: 07/04/19 00:54 Dose: 1,000 mg Documented by: [id number] Heparin Sodium (Porcine) (Heparin Sodium (Porcine)) 5,000 units SQ NOW STA Stop: 07/04/19 21:09 Last Admin: 07/04/19 21:47 Dose: 5,000 units Documented by: [id number] Cosigned by: [id number] Ceftriaxone Sodium (Rocephin) 2,000 mg in 70 mls @ 140 mls/hr IV NOW STA Stop: 07/03/19 20:51 Last Infusion: 07/03/19 21:41 Dose: 0 mls/hr Documented by: [id number] Admin: 07/03/19 21:03 Dose: 140 mls/hr Documented by: [id number] Vancomycin HCl 2,000 mg/ (Sodium Chloride) 540 mls @ 200 mls/hr IV NOW ONE Stop: 07/04/19 00:07 Last Infusion: 07/04/19 01:40 Dose: 0 mls/hr Documented by: [id number] Admin: 07/03/19 22:57 Dose: 200 mls/hr Documented by: [id number] Acyclovir Sodium 600 mg/ (Dextrose) 262 mls @ 250 mls/hr IV ONE ONE Stop: 07/03/19 22:47 Last Infusion: 07/03/19 22:57 Dose: 0 mls/hr Documented by: [id number] Admin: 07/03/19 21:53 Dose: 250 mls/hr Documented by: [id number] Proparacaine HCl (Alcaine 0.5% Op Soln (Per Drop Charge)) 2 drops OP PREOP ONE Stop: 07/03/19 21:51 Last Admin: 07/03/19 22:57 Dose: 2 drops Documented by: [id number] Proparacaine HCl (Alcaine 0.5%) Confirm Administered Dose 225 drops .ROUTE .STK- MED ONE Stop: 07/03/19 21:59 Last Admin: 07/03/19 22:36 Dose: Not Given Documented by: [id number] Medical Decision Making Medical Records Attestation: I reviewed the patient's medical records. Home Medications Current Medication List: was personally reviewed by me Laboratory Data Attestation: I reviewed the patient's lab results. Result diagrams: 07/04/19 05:49 07/04/19 05:49 Lab Results 07/03/19 07/03/19 07/04/19 Range/Units 20:54 20:54 05:49 WBC 6.89 5.94 (4.8-10.8) K/uL RBC 4.12 L 4.06 L (4.7-6.1) M/uL Hgb 14.6 13.7 L (14.0-18.0) g/dL Hct 41.4 L 40.7 L (42-52) % MCV 100.5 H 100.2 H (80-100) fL MCH 35.4 H 33.7 (25-34) pg MCHC 35.3 33.7 (32-36) g/dL RDW Std Deviation 47.9 H 47.5 H (36.4-46.3) fL RDW Coeff of Mikal 13.0 13.0 (11.5-14.5) % Plt Count 85 L 88 L (130-400) K/uL MPV 10.4 10.5 H (7.4-10.4) fL Immature Gran % (Auto) 0.3 0.7 % Neut % (Auto) 74.4 64.0 % Lymph % (Auto) 13.1 17.2 % Rains % (Auto) 11.5 16.5 % Eos % (Auto) 0.4 1.3 % Baso % (Auto) 0.3 0.3 % Immature Gran # (Auto) 0.02 0.04 H (0.00-0.02) K/uL Neut # (Auto) 5.13 3.80 (1.4-6.5) K/uL Lymph # (Auto) 0.90 L 1.02 L (1.2-3.4) K/uL Rains # (Auto) 0.79 H 0.98 H (0.11-0.59) K/uL Eos # (Auto) 0.03 0.08 (0-0.5) K/uL Baso # (Auto) 0.02 0.02 (0-0.2) K/uL RBC Morphology Unremarkable Sodium 141 (136-145) mmol/L Potassium 4.1 (3.5-5.1) mmol/L Chloride 111 H (98-107) mmol/L Carbon Dioxide 23 (21-32) mmol/L Anion Gap 7.0 (3-11) BUN 29 H (7-18) mg/dl Creatinine 1.88 H (0.6-1.4) mg/dl Est Cr Clr Drug Dosing 29.8 ml/min Est GFR ( Amer) 36.7 Est GFR (Non-Af Amer) 31.6 BUN/Creatinine Ratio 15.5 (10-20) Glucose 197 H (70-99) mg/dl POC Glucose (70-99) Calcium 9.1 (8.5-10.1) mg/dl Specimen Hemolysis 07/04/19 07/04/19 Range/Units 05:49 08:10 WBC (4.8-10.8) K/uL RBC (4.7-6.1) M/uL Hgb (14.0-18.0) g/dL Hct (42-52) % MCV (80-100) fL MCH (25-34) pg MCHC (32-36) g/dL RDW Std Deviation (36.4-46.3) fL RDW Coeff of Mikal (11.5-14.5) % Plt Count (130-400) K/uL MPV (7.4-10.4) fL Immature Gran % (Auto) % Neut % (Auto) % Lymph % (Auto) % Rains % (Auto) % Eos % (Auto) % Baso % (Auto) % Immature Gran # (Auto) (0.00-0.02) K/uL Neut # (Auto) (1.4-6.5) K/uL Lymph # (Auto) (1.2-3.4) K/uL Rains # (Auto) (0.11-0.59) K/uL Eos # (Auto) (0-0.5) K/uL Baso # (Auto) (0-0.2) K/uL RBC Morphology Sodium 140 (136-145) mmol/L Potassium 3.9 (3.5-5.1) mmol/L Chloride 110 H (98-107) mmol/L Carbon Dioxide 23 (21-32) mmol/L Anion Gap 8.0 (3-11) BUN 23 H (7-18) mg/dl Creatinine 1.70 H (0.6-1.4) mg/dl Est Cr Clr Drug Dosing 32.1 ml/min Est GFR ( Amer) 41.4 Est GFR (Non-Af Amer) 35.7 BUN/Creatinine Ratio 13.8 (10-20) Glucose 135 H (70-99) mg/dl POC Glucose 139 H (70-99) Calcium 9.3 (8.5-10.1) mg/dl Specimen Hemolysis Blood Pressure Blood Pressure Findings: Elevated blood pressure Blood Pressure Disposition: elevated BP felt to be situational MDM Narrative This is an 84-year-old male who presents emergency department complaining of left-sided facial cellulitis. The patient was started on Rocephin IV acyclovir as well as IV vancomycin here in the emergency department. Because this is worsening and the patient has Karlos failed outpatient antibiotic therapy I did discuss the case with the hospitalist service who agreed to admit the patient. I will note that the patient is afebrile and does not have an elevation in his white blood cell count. His creatinine is slightly bumped therefore he was given a normal saline bolus. Patient family were in agreement with the treatment plan. Impression & Plan Cellulitis, HTN (hypertension) Discharge Plan Visit Data *Final* Discharge Date/Time: 07/03/19 23:23 Chief Complaint: Skin Problem Stated Complaint: SHINGLES, CELLULITIS, WORSENING ED Provider: Tomás Archuleta Discharge Problem: Cellulitis, HTN (hypertension) Patient Disposition: Admitted As Inpatient Discharge Instructions Interventions: ED Discharge Assessment Last Done: 07/03/19 23:23
[2019-07-05] MEDS: ACYCLOVIR 400 MG TAB PO SCH ×5 (06:16→23:46)
[2019-07-05 07:25] LABS: Hematocrit (blood only) 42.7 % (42-52); Hemoglobin 14.1 g/dL (14.0-18.0); Mean Corpuscular Hemoglobin 33.5 pg (25-34); Mean Corpuscular Volume 101.4 fL (80-100); RDW Coefficient of Variation 13.1 % (11.5-14.5); RDW Standard Deviation 48.7 fL (36.4-46.3); Red Blood Count 4.21 M/uL (4.7-6.1); White Blood Count 5.87 K/uL (4.8-10.8)
[2019-07-05 07:51] LABS: Calcium 9.1 mg/dl (8.5-10.1); Est GFR (African American) 38.1; Est GFR (Non-African American) 32.9; Potassium 3.8 mmol/L (3.5-5.1)
[2019-07-05 07:58] LABS: Estimated Average Glucose 169 mg/dl; Hemoglobin A1C 7.5 % (4.5-5.6)
[2019-07-05 08:14] LABS: Mean Platelet Volume 10.8 fL (7.4-10.4); Platelet Count 91 K/uL (130-400)
[2019-07-05] MEDS: LOSARTAN POTASSIUM 25 MG TAB PO SCH (09:03)
[2019-07-05 09:04] LABS: Basophils # (auto) 0.01 K/uL (0-0.2); Basophils % (auto) 0.2 %; Eosinophils # (auto) 0.11 K/uL (0-0.5); Eosinophils % (auto) 1.9 %; Immature Granulocytes # (auto) 0.03 K/uL (0.00-0.02); Immature Granulocytes % (auto) 0.5 %; Lymphocytes % (auto) 27.3 %; Monocytes # (auto) 0.76 K/uL (0.11-0.59); Monocytes % (auto) 12.9 %; Neutrophils # (auto) 3.36 K/uL (1.4-6.5); Neutrophils % (auto) 57.2 %
[2019-07-05] MEDS: PSYLLIUM 58.6% POWDER PACKET PO SCH (09:04)
[2019-07-05] MEDS: ACETAMINOPHEN 500 MG TAB PO SCH ×2 (09:04→20:52)
[2019-07-05] MEDS: CITALOPRAM 20 MG TAB PO SCH (09:04)
[2019-07-05] MEDS: ASPIRIN 81 MG ECTAB PO SCH (09:04)
[2019-07-05] MEDS: HEPARIN SOD 5,000 UNIT/0.5 ML VIAL SQ SCH ×2 (09:05→20:57)
[2019-07-05] MEDS: INSULIN GLARGINE SOLOSTAR 100 UNITS/ML 3 ML PEN SQ SCH (09:05)
[2019-07-05] MEDS: INSULIN ASPART 100 UNITS/ML 3 ML PEN SC SCH ×4 (09:05→20:58)
--- NOTE | 2019-07-05 09:51 | Hospitalist Progress Note ---
Date of Service July 05, 2019 Assessment & Plan (1) Cellulitis: Secondary facial cellulitis and impetigo due to shingles with failed outpatient treatment with IV ceftriaxone given in the ER on , subsequently switched to p.o. Keflex. Continue small improvements with darkening of erythema. Continue on IV vancomycin He appears to be responding to IV vancomycin. Will continue for 48 hours and depending on clinical course switch to Bactrim for completion of cellulitis treatment started late on therefore switch planned for . (2) Zoster: Left maxillary distribution. Unclear definitive history given lack of pain however very dermatomal and from previous pictures provided and quick progression to cellulitis suspect more than just impetigo causing initial lesions. No ophthalmic involvement. No ear pain or vesicles and auditory canal to suggest Sedona Harris syndrome. Continue acyclovir 800 mg 5 times daily for 7 days. (3) Pacemaker: (4) Depression: Continue citalopram (5) Dementia: Continue Aricept (6) HTN (hypertension): Continue losartan 25 mg p.o. daily. (7) DM2 (diabetes mellitus, type 2): HbA1c 7.5 continue linagliptin Continue Lantus 20 units every morning Will discontinue carb coverage with NovoLog but continue correction factor. Glucose control appears acceptable this admission. (8) History of CVA (cerebrovascular accident): Continue aspirin and atorvastatin (9) DVT prophylaxis: Heparin 5000 SQ every 12 hourly (10) Discharge planning issues: Lives alone. Referral in place for [facility]. OT -recommending SNF PT - suspect at baseline for mobility, may benefit with more support at home Possible discharge tomorrow if cellulitis appears improved. Likely discharge on Bactrim. Subjective Patient feeling much the same as previous day. Denies any pain. Some leakage noted by nursing this morning around lower left eyelid. Denies vertigo, diplopia, vision loss, ear pain, hearing loss. Review of Systems Review of Systems: All systems reviewed & are unremarkable except as noted in HPI & below Physical Exam Constitutional: well developed and well nourished; no acute distress Eyes: normal visual mcguire by confrontation, PERRL and EOM intact bilaterally (No diplopia) Visual acuity grossly intact bilaterally ENMT: external ear and nose normal, oropharynx normal Neck: trachea midline Respiratory: normal respiratory effort, lungs clear to auscultation Cardiovascular: RRR, no murmur, no edema Skin: Mildly improved erythema in both color and extent with purely maxillary distribution on left side of his face. Multiple yellow crusting lesions. No further fluid-filled blisters. Neurologic: CN's II-XI intact bilaterally Cranial Nerves: PERRL and EOM intact bilaterally Results & Data Vital Signs (Past 12 Hours) Vital Signs Temp Pulse Resp BP BP Pulse Ox Pulse Ox 07/05/19 07:30 98.6 F 70 16 117/76 92 07/05/19 00:05 127/73 91 07/04/19 23:11 98.6 F 85 18 171/112 H 91 PG Care Time/CCT Total # of Minutes Spent Total Time Spent with Patient: Total time spent is greater than 50% in coordination of care (as documented) at patient's floor/unit and/or counseling patient: (1) Cellulitis Site of cellulitis: unspecified site Qualified Code(s): L03.90 - Cellulitis, unspecified (2) Zoster Herpes zoster complications: without complications Qualified Code(s): B02.9 - Zoster without complications (3) Depression Depression Type: unspecified Qualified Code(s): F32.9 - Major depressive disorder, single episode, unspecified (4) Dementia Dementia type: unspecified type Dementia behavioral disturbance: without behavioral disturbance Qualified Code(s): F03.90 - Unspecified dementia without behavioral disturbance (5) HTN (hypertension) Hypertension type: essential hypertension Qualified Code(s): I10 - Essential (primary) hypertension (6) DM2 (diabetes mellitus, type 2) Diabetes mellitus long chain quiller tender insulin use: with mcfp use Diabetes mellitus complication status: with hyperglycemia Qualified Code(s): E11.65 - Type 2 diabetes mellitus with hyperglycemia; Z79.4 - care home (current) use of insulin
[2019-07-05] MEDS: DONEPEZIL HCL 5 MG TAB PO SCH (20:52)
[2019-07-05] MEDS: ATORVASTATIN 40 MG TAB PO SCH (20:52)
[2019-07-05] MEDS: TRAZODONE HCL 50 MG TAB PO SCH (20:53)
[2019-07-05] MEDS: VANCOMYCIN HCL 1,250 MG in SODIUM CHLORIDE 0.9% 250 ML IV SCH (21:36)
[2019-07-06 06:18] LABS: BUN Creatinine Ratio 14.2 (10-20); Calcium 9.1 mg/dl (8.5-10.1); Creatinine Clr Calc Pharmacy 28.9 ml/min; Est GFR (African American) 36.4; Est GFR (Non-African American) 31.4
[2019-07-06] MEDS: ACYCLOVIR 400 MG TAB PO SCH ×3 (06:23→14:14)
[2019-07-06] MEDS: LOSARTAN POTASSIUM 25 MG TAB PO SCH (08:32)
[2019-07-06] MEDS: ACETAMINOPHEN 500 MG TAB PO SCH (08:32)
[2019-07-06] MEDS: PSYLLIUM 58.6% POWDER PACKET PO SCH (08:33)
[2019-07-06] MEDS: INSULIN GLARGINE SOLOSTAR 100 UNITS/ML 3 ML PEN SQ SCH (08:33)
[2019-07-06] MEDS: ASPIRIN 81 MG ECTAB PO SCH (08:33)
[2019-07-06] MEDS: CITALOPRAM 20 MG TAB PO SCH (08:33)
[2019-07-06] MEDS: HEPARIN SOD 5,000 UNIT/0.5 ML VIAL SQ SCH (08:33)
[2019-07-06] MEDS: INSULIN ASPART 100 UNITS/ML 3 ML PEN SC SCH ×2 (09:10→12:34)
--- NOTE | 2019-07-06 13:41 | Pharmacy Report ---
Pharmacy Abx Dose Short Note - Date of Service July 06, 2019 - Assessment & Plan Assessment 84 year old M receiving Vancomycin for treatment of facial cellulitis. Day #4 of antimicrobial therapy. Plan Vancomycin * Scr = 1.89, Crcl = 28.9. Renal function slightly worsened from 2 days ago (on 07/04 -Scr = 1.7). * Continued Vancomycin 1250 mg IV q24h until change to PO antibiotic. * Goal trough level for Cellulitis: 10 to 18 mcg/mL * Trough Vanco ordered for today before dose at 2200 if Vancomycin is not discontinued before then. Trough will be after 3 doses of Vanco and should be at steady state. Pharmacy will continue to follow and will adjust dose/frequency as necessary. Thank you.
[2019-07-06] MEDS ORDERED: DOXYCYCLINE HYCLATE 100 MG CAP PO SCH (21:00)
[2019-07-06] MEDS ORDERED: VANCOMYCIN TROUGH ONE (21:30)
== END 2019-07-06 16:00 | DRG 603 ==
LOC: ED 19:47 → 3N 19:47 → SUATTDRO 22:38 → 3N 23:23
DX: B02.9 Zoster without complications; I69.319 Unspecified symptoms and signs involving cognitive functions following cerebral infarction; Z79.4 Long term (current) use of insulin; Z79.82 Long term (current) use of aspirin; F01.50 Vascular dementia, unspecified severity, without behavioral disturbance, psychotic disturbance, mood disturbance, and anxiety; D69.6 Thrombocytopenia, unspecified; E11.22 Type 2 diabetes mellitus with diabetic chronic kidney disease; L03.211 Cellulitis of face; K13.0 Diseases of lips; Z95.0 Presence of cardiac pacemaker; F32.9 Major depressive disorder, single episode, unspecified; L01.00 Impetigo, unspecified; Z79.899 Other long term (current) drug therapy; I12.9 Hypertensive chronic kidney disease with stage 1 through stage 4 chronic kidney disease, or unspecified chronic kidney disease; N18.3 Chronic kidney disease, stage 3 (moderate); Z66 Do not resuscitate

== ENCOUNTER 2019-10-10 10:04 | Inpatient (IN) ==
[2019-10-10 12:07] LABS: Albumin Level 3.3 gm/dl (3.4-5.0); BUN Creatinine Ratio 17.3 (10-20); Est GFR (African American) 34.6; Est GFR (Non-African American) 29.9; Magnesium 2.1 mg/dl (1.8-2.4); Potassium 4.1 mmol/L (3.5-5.1)
[2019-10-10 12:08] LABS: Influenza A virus by PCR Neg for Influ A (Neg); Influenza B virus by PCR Neg for Influ B (Neg)
[2019-10-10 12:12] LABS: Albumin Globulin Ratio 0.8 (0.9-2); Globulin 4.1 gm/dl (2.5-4.0); Total Protein 7.4 gm/dl (6.4-8.2); Troponin I 0.021 ng/ml (0-0.045)
[2019-10-10 12:13] LABS: Appearance Urine Cloudy (Clear); Bacteria Urine Automated Negative (Negative); Bilirubin Urine Negative (Negative); Blood Urine Negative (Negative); Color Urine Dark Yellow; Glucose Urine UA Negative (Negative); Ketones Urine Trace (Negative); Leukocyte Esterase Urine Negative (Negative); Nitrite Urine Negative (Negative); Protein Urine 1+ (Negative); RBC Urine Automated 0-4 /hpf (0-4); Specific Gravity Urine 1.029 (1.000-1.030); Urobilinogen Urine Negative (Negative)
[2019-10-10 12:15] LABS: Basophils # (auto) 0.01 K/uL (0-0.2); Basophils % (auto) 0.1 %; Eosinophils # (auto) 0.02 K/uL (0-0.5); Eosinophils % (auto) 0.2 %; Hematocrit (blood only) 42.4 % (42-52); Hemoglobin 13.9 g/dL (14.0-18.0); Immature Granulocytes # (auto) 0.04 K/uL (0.00-0.02); Immature Granulocytes % (auto) 0.4 %; Lymphocytes # (auto) 1.36 K/uL (1.2-3.4); Lymphocytes % (auto) 14.1 %; Mean Corpuscular Hemoglobin 33.7 pg (25-34); Mean Corpuscular Hgb Conc 32.8 g/dL (32-36); Mean Corpuscular Volume 102.7 fL (80-100); Monocytes # (auto) 0.73 K/uL (0.11-0.59); Monocytes % (auto) 7.6 %; Neutrophils # (auto) 7.48 K/uL (1.4-6.5); Neutrophils % (auto) 77.6 %; Platelet Count 86 K/uL (130-400); Platelet Estimate Decreased (Normal); RBC Morphology Unremarkable; RDW Coefficient of Variation 13.6 % (11.5-14.5); RDW Standard Deviation 51.3 fL (36.4-46.3); Red Blood Count 4.13 M/uL (4.7-6.1); White Blood Count 9.64 K/uL (4.8-10.8)
--- NOTE | 2019-10-10 12:19 | CT Scan Report ---
CT head/brain wo con CLINICAL HISTORY: 84 years-old Male with fall. Acute head injury status post fall TECHNIQUE: Multiple axial CT images of the head were obtained without contrast. A dose lowering tech nique was utilized adhering to the principles of ALARA. COMPARISON: Head CT 03/27/2019 FINDINGS: No acute intracranial hemorrhage, midline shift, intracranial mass, hydrocephalus, territorial ischem ia or abnormal extra-axial collection. Age-related involutional changes with ex vacuo ventriculomegal y. Extensive white matter hypodensities suggest chronic microvascular ischemic disease. Cerebral vasc ular calcifications are also noted. Megacisterna magna. Mild encephalomalacia of the right cerebellar hemisphere from remote infarct. The calvarium is intact. Moderate mucosal thickening of the ethmoid air cells. Mild left maxillary s inus mucosal thickening with tiny air-fluid level. Trace right mastoid effusion. Left mastoid air marianne ls are clear. 4 mm metallic density focus of the left forehead is unchanged. Soft tissues are unremar kable. Prior bilateral cataract repair. IMPRESSION: No acute intracranial abnormality or calvarial fracture. ACT 112: Negative or not required by law. The above report was generated using voice recognition software. It may contain grammatical, syntax o r spelling errors. Electronically signed by: Todd Summers M.D. 10/10/2019 12:17 PM
--- NOTE | 2019-10-10 12:26 | CT Scan Report ---
CT chest wo con CLINICAL HISTORY: 84 years-old Male presenting with weakness, cough, decreased R lung sounds, fall. TECHNIQUE: Multidetector CT imaging of the chest was performed without the use of intravenous contras t. IV contrast: None. One or more dose lowering techniques were used consistent with the principles o f ALARA (as low as reasonably achievable), including automatic exposure control, mA or kV adjustment to individual patient size, and/or use of iterative reconstruction. COMPARISON: None. CT DOSE (mGy.cm): The estimated cumulative dose is 2454.35. FINDINGS: Skidder Loader topogram: Left subclavian pacer with leads to the right atrium and right apex. Cholecystectomy clips. Total right hip arthroplasty. Soft tissues: Left subclavian implanted cardiac device with leads to the right atrial appendage and r ight ventricular apex. Gynecomastia. No axillary, supraclavicular, or mediastinal lymphadenopathy. Ev aluation of the ibis limited without intravenous contrast. Atherosclerosis of the aorta. Borderline e nlargement of the heart. Coronary artery calcification. No pericardial or pleural effusion. Cholecyst ectomy clips. Lungs and airways: No pneumothorax. Airways demonstrate an expiratory phase of respiration. Diffuse b ronchial wall thickening suspected with scattered subsegmental endobronchial debris. Secretions noted in the trachea. Pulmonary arteries are not significantly enlarged relative to adjacent bronchi. No i nterlobular septal thickening. Minimal dependent changes likely atelectasis. Musculoskeletal: Degenerative changes of the spine. IMPRESSION: 1. Diffuse bronchial wall thickening and scattered subsegmental endobronchial debris may suggest bro nchitis, infectious or inflammatory. 2. No focal infiltrate to suggest pneumonia. Minimal bibasilar atelectasis. 3. Borderline cardiomegaly. ACT 112: Negative or not required by law. Electronically signed by: Trever Hardy M.D. 10/10/2019 12:25 PM
--- NOTE | 2019-10-10 12:32 | CT Scan Report ---
ABDOMEN AND PELVIS CT WITHOUT CONTRAST CT DOSE: 2454.35 mGy.cm HISTORY: Acute low back pain status post fall lower back pain, weakness, fall TECHNIQUE: Multiaxial CT images of the abdomen and pelvis were performed without contrast. A dose lo wering technique was utilized adhering to the principles of ALARA. COMPARISON STUDY: Chest CT of same day, CT abdomen and pelvis 12/19/2018 FINDINGS: Mild bibasilar atelectasis. Mildly limited exam secondary to motion artifact. No pneumatosis or pneum operitoneum. Streak artifact from right hip arthroplasty limits evaluation of the pelvic structures. Moderate cardiomegaly. Partially imaged pacer leads. Papillary muscle calcifications are noted. Limit ed evaluation of the solid abdominal organs. Within the limitations of the exam, the spleen and adren al glands are unremarkable. Cholecystectomy. Moderate atrophy of the pancreas with scattered calcific ations compatible with sequela of chronic pancreatitis. Larger coarse calcifications are seen within the pancreatic head, unchanged. The unenhanced liver is unremarkable. Mild nonspecific bilateral perinephric stranding is noted along with cortical thinning. Intermediate attenuating 1.6 cm lesion of the superior pole right kidney is noted with Hounsfield unit of approxim ately 20. This previously demonstrated Hounsfield unit of water and may reflect a complex cyst. No ur eteral calculi or obstructive uropathy mild wall thickening of the urinary bladder with partial diste ntion. Calcified plaque of the aorta without aneurysm. No adenopathy. No bowel obstruction or bowel wall thickening. There is mild fecal retention. Mild colonic diverticul osis. Noninflamed appendix. No ascites or mesenteric inflammation. Gynecomastia. No body wall were re troperitoneal hematoma. There is at least moderate central canal stenosis at the L3-L4 level secondar y to degenerative changes. No acute fracture identified. Anterior wedge deformity of the L1 vertebral body is unchanged from comparison. IMPRESSION: 1. No acute intra-abdominal or intrapelvic abnormality. 2. No acute fracture or evidence of acute solid organ injury. 3. Additional findings as above. ACT 112: Negative or not required by law. The above report was generated using voice recognition software. It may contain grammatical, syntax o r spelling errors. Electronically signed by: oTdd Summers M.D. 10/10/2019 12:30 PM
[2019-10-10] MEDS ORDERED: SODIUM CHLORIDE 0.9% 1000ML 1,000 ML IV ONE (12:44)
[2019-10-10] MEDS ORDERED: ALBUT/IPRATROP 3MG/0.5MG NEB 3 ML VIAL NEB STA (12:56)
[2019-10-10] MEDS ORDERED: cefTRIAXone SODIUM 2,000 MG/70 ML BAG IV STA (12:56)
[2019-10-10] MEDS ORDERED: AZITHROMYCIN 250 MG TAB PO ONE (12:56)
--- NOTE | 2019-10-10 13:23 | Electrocardiogram Report ---
Test Reason : Blood Pressure : / mmHG Vent. Rate : 078 BPM Atrial Rate : 096 BPM P-R Int : 226 ms QRS Dur : 126 ms QT Int : 410 ms P-R-T Axes : 000 -76 -03 degrees QTc Int : 467 ms Atrial-paced rhythm with prolonged AV conduction with occasional supraventricular complexes and Anju ture atrial complexes Left axis deviation Right bundle branch block Inferior infarct (cited on or before 27-MAR-2019) Abnormal ECG When compared with ECG of 27-MAR-2019 11:41, Significant changes have occurred Confirmed by Eliseo Collins ([id number]) on 10/10/2019 1:23:06 PM Referred By: REFERRED SELF Confirmed By:Eliseo Collins
--- NOTE | 2019-10-10 14:27 | History & Physical Report ---
Date of Service October 10, 2019 Assessment & Plan (1) Sepsis: Mid to PCU on telemetry for possible pneumonia versus acute bronchitis associated with acute respiratory failure. Possible aspiration pneumonia. Vital signs every 4 hours. Started empirically ceftriaxone 2 g IV daily in the ER and azithromycin 500 mg IV followed by 250 mg IV for 5 days. Duo nebs every 4 hours scheduled and PRN per RT. Continue Robitussin for cough as needed. Started Solu-Medrol 40 mg IV twice daily and trend down. Blood culture, sputum culture urine culture pending. Follow-up sensitivity and specificity and adjust antibiotics. Started Symbicort 2 puffs twice daily. Physical and Occupational Therapy. Speech therapy. DVT prophylaxis SCDs and teds Discharge plannin to 3 days stay. Patient lives alone but have route rider that comes twice a day 7 days a week. Full code Present on Admission?: Yes (2) Acute respiratory failure: As discussed above. Continue supplemental oxygen to keep oxygenation above 92%. Present on Admission?: Yes (3) Acute bronchitis: As discussed above Present on Admission?: Yes (4) History of CVA (cerebrovascular accident): Continue donepezil 10 mg p.o. every morning, continue aspirin 81 mg p.o. every morning, continue atorvastatin 40 mg p.o. nightly. Present on Admission?: Yes (5) Weakness: Patient referred to physical and Occupational Therapy Present on Admission?: Yes (6) DM2 (diabetes mellitus, type 2): A1c pending, hold oral hypoglycemic agents while patient in the hospital to prevent hypoglycemia. Glycemic control per pharmacy, Accu-Cheks before meals and at bedtime. Sliding scale insulin. Present on Admission?: Yes (7) HTN (hypertension): Stable, continue home medicine losartan 25 mg p.o. every morning. Aspirin 81 mg p.o. every morning. Present on Admission?: Yes (8) Dementia: Stable, continue memantine 5 mg p.o. nightly. Present on Admission?: Yes (9) Bradyarrhythmia: Continue home medicine as discussed above. Present on Admission?: Yes (10) Hyperlipidemia: Lipid panel pending, continue atorvastatin 40 mg p.o. nightly. Present on Admission?: Yes (11) Discharge planning issues: As discussed above patient lives by himself at home but has a caregiver who comes in the morning and at night 7 days a week. Present on Admission?: Yes History of Present Illness Chief Complaint: Cough and shortness of breath Primary Care Provider: Pratik Fragoso The patient is an 84 years old male with past medical history of CVA, br adyarrhythmia, implanted pacemaker, depression, diabetes mellitus type 2, hypertension, Alzheimer dementia who was brought to the emergency room from his home with a complaint that he is short of breath coughing and increasingly weak. Patient daughter is at the bedside and she reports that patient shortness of breath was increasing and worsening. Patient has productive sputum. The sputum is greenish in color. Family reports no blood in there. She states that patient lives at home by himself but has a caregiver coming twice a day in the morning and at night sorting his medication helping him to feed and cooking food and getting around. Patient has roller walker and uses to get around. Patient is poor historian and he is alerted in person and space. His daughter said that this is his baseline, but in comparison to 5 days ago he is much more lucid. The patient's daughter reports that he was feeling some cold chills but did not record any fever. Patient denies fever, headache, chest pain, abdominal pain, frequency, urgency. Patient was not using oxygen at home prior to this episode. Labs are reviewed: Sodium 139, potassium 4.1, chloride 108, carbon dioxide 25, anion gap 6, BUN 34, creatinine 1.97, GFR 29.9, BUN 17.3, glucose 230, lactate 2.4, repeated 1.8, calcium 9, magnesium 2.1, total bilirubin 1, AST 27, ALT 50, alkaline phosphatase 72, troponin 0.0 21, total protein 7.4, albumin 3.3, globulin 4.1, lipase 96. Urine cloudy, protein 1+, urine ketones trace urine nitrate negative, 10-30 hyaline casts, epithelial cells 10-20. Negative for influenza A and B. CT chest without contrast: Diffuse bronchial wall thickening and scattered subsegmental endobronchial debris which may suggest bronchitis infectious or inflammatory. No focal infiltrate to suggest pneumo esthela. Minimal bibasilar atelectasis. Borderline cardiomegaly. CT of the head: No acute intracranial abnormality or calvarial fracture. CT abdomen and pelvis no acute intra-abdominal or pelvic abnormality. No acute fracture or evidence of acute solid organ injury. Urine culture, blood culture and sputum cultures pending. Allergies Allergy/AdvReac Type Severity Reaction Status Date / Time No Known Allergies Allergy Unverified 10/10/19 13:22 Home Medications Home Medications Medication Instructions Recorded Confirmed Type Tradjenta 5 mg PO QAM 12/19/18 10/10/19 History acetaminophen [Tylenol Extra 5,000 mg PO BID 12/19/18 10/10/19 History Strength] aspirin 81 mg PO QAM 12/19/18 10/10/19 History atorvastatin 40 mg PO HS 12/19/18 10/10/19 History losartan 25 mg PO QAM 12/19/18 10/10/19 History Metamucil 1 tbsp PO DAILY 07/02/19 10/10/19 History Basaglar KwikPen U-100 Insulin 15 unit SUBCUT QAM 10/10/19 10/10/19 History citalopram 10 mg PO QAM 10/10/19 10/10/19 History donepezil 10 mg PO QAM 10/10/19 10/10/19 History gabapentin 200 mg PO BID 10/10/19 10/10/19 History guaifenesin 1,200 mg PO BID PRN 10/10/19 10/10/19 History loratadine 10 mg PO QAM 10/10/19 10/10/19 History memantine 5 mg PO HS 10/10/19 10/10/19 History Past Med/Surg History Medical History Bradyarrhythmia (Resolved) CVA (cerebral vascular accident) Dementia Depression Discharge planning issues DM2 (diabetes mellitus, type 2) DVT prophylaxis HTN (hypertension) Pacemaker (Chronic) Family History Other Family history non-contributory Social History Preferred Language: Greenlandic Communication Ability: Effective Communication Ability Comment: history of dementia Gang Boss Required: No Beliefs That Will Affect Care: None marital status: / Current Living Situation: Alone Current Living Situation Comment: patient has caregivers current occupational status: retired Other Information That Helps Us Care for You: No Feels Safe at Home: Yes Safety Concerns: Feels Safe At This Time Smoking Status: Never smoker Do You Dip or Chew Tobacco: No ; Second Hand Exposure: No ; Tobacco Cessation Education Requested by Patient: No Hx Alcohol Use: No Hx Substance Use: No Review of Systems Review of Systems: All systems reviewed & are unremarkable except as noted in HPI & below Physical Exam Constitutional: WD/WN, vitals as above well developed and + ill appearing Eyes: PERRL, conjunctivae normal, anicteric sclerae ENMT: external ear and nose normal, oropharynx normal Neck: trachea midline, no thyromegaly Respiratory: Auscultation: + crackles and + wheezes Cardiovascular: Paced rhythm with prolonged AV conduction and occasional supraventricular complexes and premature atrial complexes seen on the EKG with lateral right bundle branch block. Gastrointestinal (Abdomen): normal bowel sounds, soft, nontender, no hepatosplenomegaly Musculoskeletal: no cyanosis or clubbing, extremities motor strength 5/5 Skin: no rashes, warm and dry Neurologic: Alert and oriented in person and space. Patient has moderate Alzheimer dementia. His daughter reports that he this is better than his baseline. Psychiatric: Insight: + limited insight Lymphatic: no cervical or axillary lymphadenopathy Results & Data Vital Signs (Past 12 Hours) Vital Signs Temp Pulse Pulse Resp BP BP Pulse Ox 10/10/19 14:00 77 18 139/76 96 10/10/19 13:30 71 15 113/84 10/10/19 13:02 74 14 95 10/10/19 13:00 73 13 110/79 95 10/10/19 12:30 70 15 120/75 10/10/19 12:00 79 16 128/78 95 10/10/19 11:55 76 17 133/78 94 10/10/19 11:38 74 17 112/70 96 10/10/19 11:30 77 23 112/70 95 10/10/19 10:14 37.2 C 58 L 20 120/69 88 L Code Status & VTE Plan Code Status Full code VTE Prophylaxis Plan VTE Prophylaxis will be ordered: Yes PG Care Time/CCT Total # of Minutes Spent Total Time Spent with Patient: Total time spent is greater than 50% in coordination of care (as documented) at patient's floor/unit and/or counseling patient: Coding Level of Care Code 92251 Initial Inpt Care Lvl 3 Diagnoses Sepsis A41.9 Acute respiratory failure J96.00 Acute bronchitis J20.9 History of CVA (cerebrovascular accident) Z86.73 Weakness R53.1 DM2 (diabetes mellitus, type 2) E11.65; Z79.4 Diabetes mellitus buttermaker insulin use: with [facility] use Diabetes mellitus complication status: with hyperglycemia HTN (hypertension) I10 Hypertension type: essential hypertension Dementia F03.90 Dementia type: unspecified type Dementia behavioral disturbance: without behavioral disturbance Bradyarrhythmia I49.8 Hyperlipidemia E78.5 Discharge planning issues Z02.9 (1) DM2 (diabetes mellitus, type 2) Diabetes mellitus buttermaker insulin use: with [facility] use Diabetes mellitus complication status: with hyperglycemia Qualified Code(s): E11.65 - Type 2 diabetes mellitus with hyperglycemia; Z79.4 - snf (current) use of insulin (2) HTN (hypertension) Hypertension type: essential hypertension Qualified Code(s): I10 - Essential (primary) hypertension (3) Dementia Dementia type: unspecified type Dementia behavioral disturbance: without behavioral disturbance Qualified Code(s): F03.90 - Unspecified dementia without behavioral disturbance
[2019-10-10] MEDS ORDERED: POLYETHYLENE (MIRALAX) 17 GM PACK PO PRN (14:53)
[2019-10-10] MEDS ORDERED: GLUCOSE 40% GEL 15 GM TUBE PO PRN ×2 (14:53→16:00)
[2019-10-10] MEDS ORDERED: GLUCAGON FOR INJ 1 MG VIAL SQ PRN (14:53)
[2019-10-10] MEDS ORDERED: CARBOHYDRATES FOR HYPOGLYCEMIA PO PRN ×2 (14:53→16:00)
[2019-10-10] MEDS ORDERED: ALUMINUM/MAGNESIUM SUSP 30 ML UDC PO PRN (14:53)
[2019-10-10] MEDS ORDERED: ACETAMINOPHEN 325 MG TAB PO PRN (14:53)
[2019-10-10] MEDS ORDERED: MAGNESIUM HYDROXIDE SUSP 30 ML UDC PO PRN (14:53)
[2019-10-10] MEDS ORDERED: GLUCOSE 10 TABS/TUBE PO PRN ×2 (14:53→16:00)
[2019-10-10] MEDS ORDERED: DEXTROSE 50% 50 ML SYRINGE IV PRN ×2 (14:53→16:00)
[2019-10-10] MEDS ORDERED: PHARMACY GLYCEMIC MGMT CONSULT PRN (15:09)
[2019-10-10] MEDS ORDERED: NSS + 20MEQ KCL 20 MEQ/1,000 ML BAG IV SCH (15:10)
[2019-10-10] MEDS: ALBUT/IPRATROP 3MG/0.5MG NEB 3 ML VIAL NEB SCH ×3 (15:26→22:32)
[2019-10-10] MEDS ORDERED: guaiFENesin 600 MG TABCR PO PRN (15:30)
[2019-10-10 15:55] LABS: Magnesium 2.2 mg/dl (1.8-2.4); Thyroid Stimulating Hormone 0.866 uIu/ml (0.300-4.500); Troponin I 0.032 ng/ml (0-0.045)
[2019-10-10] MEDS ORDERED: GLUCAGON FOR INJ 1 MG VIAL IM PRN (16:00)
--- NOTE | 2019-10-10 17:07 | Emergency Department Note ---
Entered by Silvia Britton acting as a scribe for Markos Ortega M.D. History of Present Illness General Chief complaint: Illness Stated complaint: WEAKNESS,COUGH,CONGESTION,WHEEZING Time Seen by Provider: 10/10/19 11:00 Source: patient and other (silverware buffer) History of Present Illness Onset (ago): day(s) 1 Location: left and right Pain Consistency: + other (episode) Exacerbated By: + other (weakness) Associated symptoms: + cough, + headaches and + other (+rhinorrhea; +sore throat; +lower, central back pain; -abdominal pain ); no chest pain and no fever/chills The patient is an 84 year old male, with past medical history of CVA, diabetes, and HTN, who presents to the Emergency Room with complaints of an episode of weakness that progressed throughout the night, last night according to the patients silverware buffer. The silverware buffer reports the patient had trouble getting out of bed this morning due to the weakness. The silverware buffer states the patient has had a cough, runny nose, and a sore throat for the last several days. The patient denies fever or chills. He states he has been bringing up something with the cough, but he states he will swallow it. The silverware buffer states the patient has had a slight headache and lower central back pain. The patient denies chest pain or abdominal pain. He denies a recent fall. The family member states the patient is not typically on oxygen, and the patient denies being a smoker. He states he had pancakes this morning, and he states he has been urinating and defecating fine recently. He notes he has been eating and drinking fine recently as well. The patient reports he did not sleep well last night. He states he has trouble sitting up from laying down due to his back pain. Home Medications Home Medications Medication Instructions Recorded Confirmed Type Tradjenta 5 mg PO QAM 12/19/18 10/10/19 History acetaminophen [Tylenol Extra 5,000 mg PO BID 12/19/18 10/10/19 History Strength] aspirin 81 mg PO QAM 12/19/18 10/10/19 History atorvastatin 40 mg PO HS 12/19/18 10/10/19 History losartan 25 mg PO QAM 12/19/18 10/10/19 History Metamucil 1 tbsp PO DAILY 07/02/19 10/10/19 History Kerry Nguyen U-100 Insulin 15 unit SUBCUT QAM 10/10/19 10/10/19 History citalopram 10 mg PO QAM 10/10/19 10/10/19 History donepezil 10 mg PO QAM 10/10/19 10/10/19 History gabapentin 200 mg PO BID 10/10/19 10/10/19 History guaifenesin 1,200 mg PO BID PRN 10/10/19 10/10/19 History loratadine 10 mg PO QAM 10/10/19 10/10/19 History memantine 5 mg PO HS 10/10/19 10/10/19 History Allergies Allergy/AdvReac Type Severity Reaction Status Date / Time No Known Allergies Allergy Unverified 10/10/19 13:22 Past Med/Surg History Medical History Bradyarrhythmia (Resolved) CVA (cerebral vascular accident) Dementia Depression Discharge planning issues DM2 (diabetes mellitus, type 2) DVT prophylaxis HTN (hypertension) Pacemaker (Chronic) Family History Other Family history non-contributory Social History Preferred Language: Nepalese Communication Ability: Effective Communication Ability Comment: history of dementia Management Information Systems Director Required: No Beliefs That Will Affect Care: None marital status: / Current Living Situation: Alone Current Living Situation Comment: patient has caregivers current occupational status: retired Other Information That Helps Us Care for You: No Feels Safe at Home: Yes Safety Concerns: Feels Safe At This Time Smoking Status: Never smoker Do You Dip or Chew Tobacco: No ; Second Hand Exposure: No ; Tobacco Cessation Education Requested by Patient: No Hx Alcohol Use: No Hx Substance Use: No Review of Systems See HPI for pertinent positives & negatives. and A total of 10 systems reviewed and were otherwise negative Physical Exam Vital Signs Vital Signs - 24 hr 10/10/19 10:14 10/10/19 11:30 10/10/19 11:38 Temperature 37.2 C Temperature Source Oral Pulse Rate 58 L 77 Pulse Rate [Left] 74 Pulse Rate from SpO2 Sensor 78 Pulse Rhythm Regular Pulse Rhythm [Left] Regular Pulse Strength Normal Respiratory Rate 20 23 17 Respiratory Effort / Characteristics Non-Labored Spontaneous Non-Labored Respiratory Depth Normal Normal Respiratory Pattern Regular Regular Blood Pressure 120/69 112/70 Blood Pressure [Left Arm] 112/70 Blood Pressure Mean 86 83 Blood Pressure Mean [Left Arm] 84 Blood Pressure Position Sitting Pulse Oximetry 88 L 95 96 Oxygen Delivery Method Room Air Nasal Cannula Nasal Cannula Oxygen Flow Rate 2 2 Sepsis Recent Fever Within 48 Hours No Sepsis Action Taken by Nursing No Action Required 10/10/19 11:55 10/10/19 12:00 10/10/19 12:30 Temperature Temperature Source Pulse Rate 76 79 70 Pulse Rate [Left] Pulse Rate from SpO2 Sensor 78 80 Pulse Rhythm Pulse Rhythm [Left] Pulse Strength Respiratory Rate 17 16 15 Respiratory Effort / Characteristics Respiratory Depth Respiratory Pattern Blood Pressure 133/78 128/78 120/75 Blood Pressure [Left Arm] Blood Pressure Mean 95 92 83 Blood Pressure Mean [Left Arm] Blood Pressure Position Pulse Oximetry 94 95 Oxygen Delivery Method Nasal Cannula Oxygen Flow Rate 2 Sepsis Recent Fever Within 48 Hours Sepsis Action Taken by Nursing 10/10/19 13:00 10/10/19 13:02 10/10/19 13:30 Temperature Temperature Source Pulse Rate 73 71 Pulse Rate [Left] 74 Pulse Rate from SpO2 Sensor 73 Pulse Rhythm Pulse Rhythm [Left] Pulse Strength Respiratory Rate 13 14 15 Respiratory Effort / Characteristics Non-Labored Spontaneous Respiratory Depth Respiratory Pattern Blood Pressure 110/79 113/84 Blood Pressure [Left Arm] Blood Pressure Mean 94 95 Blood Pressure Mean [Left Arm] Blood Pressure Position Pulse Oximetry 95 95 Oxygen Delivery Method Nasal Cannula Oxygen Flow Rate 2 Sepsis Recent Fever Within 48 Hours Sepsis Action Taken by Nursing GENERAL: Awake, alert, fatigued-appearing, in no distress HENT: Normocephalic, atraumatic. EYES: Normal conjunctiva. Sclera non-icteric. NECK: Supple. No nuchal rigidity. RESPIRATORY: Right lower lobe rhonchi noted. No wheezes. Mildly increased respiratory effort. CARDIAC: Normal rate. Normal rhythm. Extremities warm and well perfused. GI: Soft, non-distended. No tenderness to palpation. No rebound or guarding. RECTAL: Deferred. MUSCULOSKELETAL: Atraumatic. Chest examination reveals no tenderness. Mild lower lumbar midline back tenderness to palpation. LOWER EXTREMITIES: Calves are equal size bilaterally and non-tender. No edema NEURO: Normal sensorium. No sensory or motor deficits noted. No facial droop. SKIN: Warm and dry. No jaundice noted. Course Course 1105: Past medical records reviewed. The patient was evaluated in room A12B. A complete history and physical exam was performed. 1300: I reviewed the patient's case with Dr. Gonzalez-Hospitalist [facility]. Dr. Gonzalez will evaluate the patient for further management. 1332: I updated the patient and his family on the patient's case. Consultations Consultation #1: I reviewed the patient's case with Dr. Gonzalez-Gianluca [facility]. Dr. Gonzalez will evaluate the patient for further management. Time: 13:00 Administered Medications Albuterol (Duoneb) 3 ml NEB Q4R LEONEL Stop: 11/09/19 14:59 Last Admin: 10/10/19 15:26 Dose: 3 ml Documented by: [id number] Potassium Chloride/Sodium Chloride (Normal Saline W/20 Meq Kcl) 20 meq in 1,000 mls @ 80 mls/hr IV .[id number] LEONEL Stop: 10/11/19 03:39 Last Admin: 10/10/19 16:39 Dose: 80 mls/hr Documented by: [id number] Discontinued Medications Albuterol (Duoneb) 3 ml NEB NOW STA Stop: 10/10/19 12:57 Last Admin: 10/10/19 13:00 Dose: 3 ml Documented by: [id number] Azithromycin (Zithromax) 500 mg PO NOW ONE Stop: 10/10/19 12:57 Last Admin: 10/10/19 13:36 Dose: 500 mg Documented by: [id number] Sodium Chloride (Nss 1000ml) 1,000 mls @ 999 mls/hr IV .[id number] ONE Stop: 10/10/19 13:44 Last Infusion: 10/10/19 14:57 Dose: 0 mls/hr Documented by: [id number] Admin: 10/10/19 13:36 Dose: 999 mls/hr Documented by: [id number] Ceftriaxone Sodium (Rocephin) 2,000 mg in 70 mls @ 140 mls/hr IV NOW STA Stop: 10/10/19 13:25 Last Infusion: 10/10/19 14:19 Dose: 0 mls/hr Documented by: [id number] Admin: 10/10/19 13:36 Dose: 140 mls/hr Documented by: [id number] Medical Decision Making Differential Diagnosis Differential diagnosis: Etiologies such as viral syndrome, otitis, pharyngitis, pneumonia, influenza, meningitis, urinary tract infection, sepsis, bacteremia, as well as others were entertained. Medical Records Attestation: I reviewed the patient's medical records. Home Medications Current Medication List: was personally reviewed by me Laboratory Data Attestation: I reviewed the patient's lab results. Result diagrams: 10/10/19 11:31 10/10/19 11:31 Lab Results 10/10/19 10/10/19 10/10/19 Range/Units 11:15 11:31 11:31 WBC 9.64 (4.8-10.8) K/uL RBC 4.13 L (4.7-6.1) M/uL Hgb 13.9 L (14.0-18.0) g/dL Hct 42.4 (42-52) % MCV 102.7 H (80-100) fL MCH 33.7 (25-34) pg MCHC 32.8 (32-36) g/dL RDW Std Deviation 51.3 H (36.4-46.3) fL RDW Coeff of Mikal 13.6 (11.5-14.5) % Plt Count 86 L (130-400) K/uL MPV 11.0 H (7.4-10.4) fL Immature Gran % (Auto) 0.4 % Neut % (Auto) 77.6 % Lymph % (Auto) 14.1 % Travis % (Auto) 7.6 % Eos % (Auto) 0.2 % Baso % (Auto) 0.1 % Immature Gran # (Auto) 0.04 H (0.00-0.02) K/uL Neut # (Auto) 7.48 H (1.4-6.5) K/uL Lymph # (Auto) 1.36 (1.2-3.4) K/uL Travis # (Auto) 0.73 H (0.11-0.59) K/uL Eos # (Auto) 0.02 (0-0.5) K/uL Baso # (Auto) 0.01 (0-0.2) K/uL Platelet Estimate Decreased L (Normal) RBC Morphology Unremarkable Sodium 139 (136-145) mmol/L Potassium 4.1 (3.5-5.1) mmol/L Chloride 108 H (98-107) mmol/L Carbon Dioxide 25 (21-32) mmol/L Anion Gap 6.0 (3-11) BUN 34 H (7-18) mg/dl Creatinine 1.97 H (0.6-1.4) mg/dl Est Cr Clr Drug Dosing 28.0 ml/min Est GFR ( Amer) 34.6 Est GFR (Non-Af Amer) 29.9 BUN/Creatinine Ratio 17.3 (10-20) Glucose 230 H (70-99) mg/dl Lactate (0.4-2.0) mmol/L Calcium 9.0 (8.5-10.1) mg/dl Magnesium 2.1 (1.8-2.4) mg/dl Total Bilirubin 1.0 (0.2-1) mg/dl AST 27 (15-37) U/L ALT 50 (12-78) U/L Alkaline Phosphatase 72 (45-117) U/L Troponin I 0.021 (0-0.045) ng/ml Total Protein 7.4 (6.4-8.2) gm/dl Albumin 3.3 L (3.4-5.0) gm/dl Globulin 4.1 H (2.5-4.0) gm/dl Albumin/Globulin Ratio 0.8 L (0.9-2) Lipase 96 (73-393) U/L Urine Color Urine Appearance (Clear) Urine pH (4.5-7.5) Ur Specific [place] (1.000-1.030) Urine Protein (Negative) Urine Glucose (UA) (Negative) Urine Ketones (Negative) Urine Blood (Negative) Urine Nitrite (Negative) Urine Bilirubin (Negative) Urine Urobilinogen (Negative) Ur Leukocyte Esterase (Negative) Urine WBC (Auto) (0-5) /hpf Urine RBC (Auto) (0-4) /hpf U Hyaline Cast (Auto) (0-5) /lpf U Epithel Cells (Auto) (0-5) /lpf Urine Bacteria (Auto) (Negative) Granular Casts (0) /lpf Urine Yeast Influenza Type A (PCR) Neg for Influ A (Neg) Influenza Type B (PCR) Neg for Influ B (Neg) 10/10/19 10/10/19 10/10/19 Range/Units 11:31 11:55 13:24 WBC (4.8-10.8) K/uL RBC (4.7-6.1) M/uL Hgb (14.0-18.0) g/dL Hct (42-52) % MCV (80-100) fL MCH (25-34) pg MCHC (32-36) g/dL RDW Std Deviation (36.4-46.3) fL RDW Coeff of Mikal (11.5-14.5) % Plt Count (130-400) K/uL MPV (7.4-10.4) fL Immature Gran % (Auto) % Neut % (Auto) % Lymph % (Auto) % Travis % (Auto) % Eos % (Auto) % Baso % (Auto) % Immature Gran # (Auto) (0.00-0.02) K/uL Neut # (Auto) (1.4-6.5) K/uL Lymph # (Auto) (1.2-3.4) K/uL Travis # (Auto) (0.11-0.59) K/uL Eos # (Auto) (0-0.5) K/uL Baso # (Auto) (0-0.2) K/uL Platelet Estimate (Normal) RBC Morphology Sodium (136-145) mmol/L Potassium (3.5-5.1) mmol/L Chloride (98-107) mmol/L Carbon Dioxide (21-32) mmol/L Anion Gap (3-11) BUN (7-18) mg/dl Creatinine (0.6-1.4) mg/dl Est Cr Clr Drug Dosing ml/min Est GFR ( Amer) Est GFR (Non-Af Amer) BUN/Creatinine Ratio (10-20) Glucose (70-99) mg/dl Lactate 2.4 H* 1.8 (0.4-2.0) mmol/L Calcium (8.5-10.1) mg/dl Magnesium (1.8-2.4) mg/dl Total Bilirubin (0.2-1) mg/dl AST (15-37) U/L ALT (12-78) U/L Alkaline Phosphatase (45-117) U/L Troponin I (0-0.045) ng/ml Total Protein (6.4-8.2) gm/dl Albumin (3.4-5.0) gm/dl Globulin (2.5-4.0) gm/dl Albumin/Globulin Ratio (0.9-2) Lipase (73-393) U/L Urine Color Dark Yellow Urine Appearance Cloudy A (Clear) Urine pH 5.0 (4.5-7.5) Ur Specific [place] 1.029 (1.000-1.030) Urine Protein 1+ H (Negative) Urine Glucose (UA) Negative (Negative) Urine Ketones Trace H (Negative) Urine Blood Negative (Negative) Urine Nitrite Negative (Negative) Urine Bilirubin Negative (Negative) Urine Urobilinogen Negative (Negative) Ur Leukocyte Esterase Negative (Negative) Urine WBC (Auto) 1-5 (0-5) /hpf Urine RBC (Auto) 0-4 (0-4) /hpf U Hyaline Cast (Auto) 10-30 H (0-5) /lpf U Epithel Cells (Auto) 10-20 H (0-5) /lpf Urine Bacteria (Auto) Negative (Negative) Granular Casts 1-5 H (0) /lpf Urine Yeast Not Reportable Influenza Type A (PCR) (Neg) Influenza Type B (PCR) (Neg) Imaging Data Radiologist's Impression: Radiology results as stated below per my review and the radiologist's interpretation: CT chest wo con CLINICAL HISTORY: 84 years-old Male presenting with weakness, cough, decreased R lung sounds, fall. TECHNIQUE: Multidetector CT imaging of the chest was performed without the use of intravenous contrast. IV contrast: None. One or more dose lowering techniques were used consistent with the principles of ALARA (as low as reasonably achievable), including automatic exposure control, mA or kV adjustment to individual patient size, and/or use of iterative reconstruction. COMPARISON: None. CT DOSE (mGy.cm): The estimated cumulative dose is 2454.35. FINDINGS: Correctional Counselor/Case Manager topogram: Left subclavian pacer with leads to the right atrium and right apex. Cholecystectomy clips. Total right hip arthroplasty. Soft tissues: Left subclavian implanted cardiac device with leads to the right atrial appendage and right ventricular apex. Gynecomastia. No axillary, supraclavicular, or mediastinal lymphadenopathy. Evaluation of the ibis limited without intravenous contrast. Atherosclerosis of the aorta. Borderline enlargement of the heart. Coronary artery calcification. No pericardial or pleural effusion. Cholecystectomy clips. Lungs and airways: No pneumothorax. Airways demonstrate an expiratory phase of respiration. Diffuse bronchial wall thickening suspected with scattered subsegmental endobronchial debris. Secretions noted in the trachea. Pulmonary arteries are not significantly enlarged relative to adjacent bronchi. No interlobular septal thickening. Minimal dependent changes likely atelectasis. Musculoskeletal: Degenerative changes of the spine. IMPRESSION: 1. Diffuse bronchial wall thickening and scattered subsegmental endobronchial debris may suggest bronchitis, infectious or inflammatory. 2. No focal infiltrate to suggest pneumonia. Minimal bibasilar atelectasis. 3. Borderline cardiomegaly. ACT 112: Negative or not required by law. Electronically signed by: Trever Hardy M.D. 10/10/2019 12:[address] head/brain wo con CLINICAL HISTORY: 84 years-old Male with fall. Acute head injury status post fall TECHNIQUE: Multiple axial CT images of the head were obtained without contrast. A dose lowering technique was utilized adhering to the principles of ALARA. COMPARISON: Head CT 03/27/2019 FINDINGS: No acute intracranial hemorrhage, midline shift, intracranial mass, hydrocephalus, territorial ischemia or abnormal extra-axial collection. Age- related involutional changes with ex vacuo ventriculomegaly. Extensive white matter hypodensities suggest chronic microvascular ischemic disease. Cerebral vascular calcifications are also noted. Megacisterna magna. Mild encephalomalacia of the right cerebellar hemisphere from remote infarct. The calvarium is intact. Moderate mucosal thickening of the ethmoid air cells. Mild left maxillary sinus mucosal thickening with tiny air-fluid level. Trace right mastoid effusion. Left mastoid air cells are clear. 4 mm metallic density focus of the left forehead is unchanged. Soft tissues are unremarkable. Prior bilateral cataract repair. IMPRESSION: No acute intracranial abnormality or calvarial fracture. ACT 112: Negative or not required by law. The above report was generated using voice recognition software. It may contain grammatical, syntax or spelling errors. Electronically signed by: Todd Summers M.D. 10/10/2019 12:17 PM [address] AND PELVIS CT WITHOUT CONTRAST CT DOSE: 2454.35 mGy.cm HISTORY: Acute low back pain status post fall lower back pain, weakness, fall TECHNIQUE: Multiaxial CT images of the abdomen and pelvis were performed without contrast. A dose lowering technique was utilized adhering to the principles of ALARA. COMPARISON STUDY: Chest CT of same day, CT abdomen and pelvis 12/19/2018 FINDINGS: Mild bibasilar atelectasis. Mildly limited exam secondary to motion artifact. No pneumatosis or pneumoperitoneum. Streak artifact from right hip arthroplasty limits evaluation of the pelvic structures. Moderate cardiomegaly. Partially imaged pacer leads. Papillary muscle calcifications are noted. Limited evaluation of the solid abdominal organs. Within the limitations of the exam, the spleen and adrenal glands are unremarkable. Cholecystectomy. Moderate atrophy of the pancreas with scattered calcifications compatible with sequela of chronic pancreatitis. Larger coarse calcifications are seen within the pancreatic head, unchanged. The unenhanced liver is unremarkable. Mild nonspecific bilateral perinephric stranding is noted along with cortical thinning. Intermediate attenuating 1.6 cm lesion of the superior pole right kidney is noted with Hounsfield unit of approximately 20. This previously demonstrated Hounsfield unit of water and may reflect a complex cyst. No ureteral calculi or obstructive uropathy mild wall thickening of the urinary bladder with partial distention. Calcified plaque of the aorta without aneurysm. No adenopathy. No bowel obstruction or bowel wall thickening. There is mild fecal retention. Mild colonic diverticulosis. Noninflamed appendix. No ascites or mesenteric inflammation. Gynecomastia. No body wall were retroperitoneal hematoma. There is at least moderate central canal stenosis at the L3-L4 level secondary to degenerative changes. No acute fracture identified. Anterior wedge deformity of the L1 vertebral body is unchanged from comparison. IMPRESSION: 1. No acute intra-abdominal or intrapelvic abnormality. 2. No acute fracture or evidence of acute solid organ injury. 3. Additional findings as above. ACT 112: Negative or not required by law. The above report was generated using voice recognition software. It may contain grammatical, syntax or spelling errors. Electronically signed by: Todd Summers M.D. 10/10/2019 12:30 PM ECG Data Attestation: I personally reviewed and interpreted this ECG as follows: Indication: + weakness Rate (beats per minute): 78 Rhythm: + other (atrially paced ) ECG Intervals/blocks: + Right Bundle branch block ECG [place]: + Left axis deviation ECG ST segments: no ST elevation ECG Findings: + PACs (occasional) Comparison ECG Date: from (03/27/19) Change: the following changes noted (new RBBB today) Blood Pressure Blood Pressure Findings: Elevated blood pressure Blood Pressure Disposition: further management by hospitalist Head Trauma GCS Score: 15 MDM Narrative Continuous Cardiac Monitoring: An order was placed for continuous cardiac monitoring. The monitor shows a rate of 78 with atrial paced rhythm. Patient is a 84-year-old male with a past medical history of CVA, diabetes, CKD, sick sinus syndrome with pacemaker, chronic thrombocytopenia and dementia presenting today with report of a fall this morning where he was weak and slid out of his bed to the floor. States did not hit head. Patient over the last several days has been experiencing a chest cold, weakness, runny nose. Patient is on aspirin. Does complain of a bit of a headache today. GCS of 15 but fatigued. Mental status is not declined according to family as he has slight short term memory issues. Relates some lower back pain as well. Slight change in diminished right-sided lower breath sounds concern for possible pneumonia versus influenza versus infectious cause. Doubt meningitis. CT the head and abdomen pelvis are completed given the fall complaint. CT of the chest was completed as well to exclude intrathoracic pathology such as pneumonia. Doubt pneumothorax. Lower suspicion for PE at this time. No smoking history but is slightly hypoxic here with a new oxygen requirement. Basic labs obtained as well as influenza testing. No significant leukocytosis or severe anemia. Renal function at baseline. Lactate is elevated 2.4. Negative influenza testing. No evidence of acute UTI. Troponin is detectable but not significantly elevated. Patient does have findings on his CT of bronchial thickening in this clinical context suggestive of bronchitis but no focal infiltrate for pneumonia. Imaging of the head without acute findings. Given the new hypoxic requirement will treat with ceftriaxone and azithromycin this point and feel patient requires further observation here in the hospital with hypoxia. Patient is in agreement this plan. He is also given a DuoNeb. Hospitalist was contacted. Impression & Plan Bronchitis, Hypoxia, Weakness Discharge Plan Visit Data *Final* Discharge Date/Time: 10/10/19 14:21 Chief Complaint: Illness Stated Complaint: WEAKNESS,COUGH,CONGESTION,WHEEZING ED Provider: Markos Ortega Discharge Problem: Bronchitis, Hypoxia, Weakness Patient Disposition: Admitted As Inpatient Discharge Instructions Interventions: ED Discharge Assessment Last Done: 10/10/19 14:21 The alexxibclinton's documentation has been prepared under my direction and personally reviewed by me in its entirety. I confirm that the note above accurately reflects all work, treatment, procedures, and medical decision making performed by me.
[2019-10-10] MEDS: INSULIN ASPART 100 UNITS/ML 3 ML PEN SC SCH ×3 (17:28→23:52)
[2019-10-10] MEDS ORDERED: INSULIN GLARGINE SOLOSTAR 100 UNITS/ML 3 ML PEN SC SCH (21:00)
[2019-10-10] MEDS: methylPREDNISolone 40 MG in SYRINGE 0 ML IV SCH (21:04)
[2019-10-10] MEDS: ATORVASTATIN 40 MG TAB PO SCH (21:04)
[2019-10-10] MEDS: GABAPENTIN 100 MG CAP PO SCH (21:04)
[2019-10-10] MEDS: MEMANTINE HCL 5 MG TAB PO SCH (21:04)
[2019-10-11] MEDS: ALBUT/IPRATROP 3MG/0.5MG NEB 3 ML VIAL NEB SCH ×6 (03:30→23:07)
[2019-10-11] MEDS: INSULIN ASPART 100 UNITS/ML 3 ML PEN SC SCH ×5 (04:17→20:34)
[2019-10-11 06:43] LABS: Hematocrit (blood only) 41.1 % (42-52); Hemoglobin 13.4 g/dL (14.0-18.0); Mean Corpuscular Hemoglobin 33.8 pg (25-34); Mean Corpuscular Hgb Conc 32.6 g/dL (32-36); Mean Corpuscular Volume 103.5 fL (80-100); RDW Coefficient of Variation 13.7 % (11.5-14.5); RDW Standard Deviation 51.5 fL (36.4-46.3); Red Blood Count 3.97 M/uL (4.7-6.1)
[2019-10-11 06:52] LABS: Estimated Average Glucose 151 mg/dl; Hemoglobin A1C 6.9 % (4.5-5.6)
[2019-10-11 06:56] LABS: Mean Platelet Volume 11.2 fL (7.4-10.4); Platelet Count 86 K/uL (130-400)
[2019-10-11 07:04] LABS: Immature Granulocytes # (auto) 0.04 K/uL (0.00-0.02); Immature Granulocytes % (auto) 0.5 %; Lymphocytes # (auto) 0.61 K/uL (1.2-3.4); Monocytes # (auto) 0.34 K/uL (0.11-0.59); Monocytes % (auto) 3.9 %; Neutrophils # (auto) 7.71 K/uL (1.4-6.5); Neutrophils % (auto) 88.6 %
[2019-10-11 07:28] LABS: Albumin Level 3.3 gm/dl (3.4-5.0); BUN Creatinine Ratio 18.6 (10-20); Calcium 8.7 mg/dl (8.5-10.1); Creatinine Clr Calc Pharmacy 29.7 ml/min; Est GFR (African American) 36.2; Est GFR (Non-African American) 31.2; Potassium 4.7 mmol/L (3.5-5.1)
[2019-10-11 07:32] LABS: Albumin Globulin Ratio 0.7 (0.9-2); Bilirubin,Total 0.6 mg/dl (0.2-1); Globulin 4.4 gm/dl (2.5-4.0); Total Protein 7.7 gm/dl (6.4-8.2)
[2019-10-11] MEDS: DONEPEZIL HCL 10 MG TAB PO SCH (08:35)
[2019-10-11] MEDS: CITALOPRAM 20 MG TAB PO SCH (08:35)
[2019-10-11] MEDS: ASPIRIN 81 MG ECTAB PO SCH (08:36)
[2019-10-11] MEDS: LOSARTAN POTASSIUM 25 MG TAB PO SCH (08:36)
[2019-10-11] MEDS: LORATADINE 10 MG TAB PO SCH (08:36)
[2019-10-11] MEDS: GABAPENTIN 100 MG CAP PO SCH ×2 (08:36→20:31)
[2019-10-11] MEDS: methylPREDNISolone 40 MG in SYRINGE 0 ML IV SCH ×2 (08:37→20:36)
[2019-10-11] MEDS: PSYLLIUM 58.6% POWDER PACKET PO SCH (08:37)
[2019-10-11] MEDS ORDERED: INSULIN GLARGINE SOLOSTAR 100 UNITS/ML 3 ML PEN SC ONE (09:00)
[2019-10-11] MEDS: AZITHROMYCIN 250 MG in DEXTROSE 5% 250 ML IV SCH (12:02)
--- NOTE | 2019-10-11 12:11 | Pharmacy Report ---
Pharmacy Glycemic Short Note 2 - Date of Service October 11, 2019 - Glycemic Short BSG Results (Last 24 hours): 10/10/19 10/10/19 10/10/19 11:31 14:53 16:25 Glucose 230 H POC Glucose 195 H 145 H 10/10/19 10/10/19 10/11/19 20:57 23:49 04:10 Glucose POC Glucose 161 H 203 H 234 H 10/11/19 10/11/19 10/11/19 06:15 07:21 11:30 Glucose 235 H POC Glucose 219 H 251 H OUTPATIENT ANTIDIABETIC REGIMEN: * Basaglar 15 units Q AM * Linagliptin 5mg PO Q AM * A1c = 6.9% 10/10/19 ASSESSMENT: * Type 2 diabetic admitted for acute resp failure / sepsis * Pt appears to be well controlled with outpt regimen based upon recent A1c results * Pt acutely hyperglycemic this admission due to IV steroid administration * Fasting BSG 219 this AM with 25 units basal insulin on board and after rece iving 6 units correctional insulin overnight - will uptitrate * Today's insulin doses will be based upon pt weight and mod-severe stress level. Lantus dosing scale utilized due to possibility of changing steroid dose PLAN FOR INPATIENT GLYCEMIC CONTROL: * Hold outpatient oral diabetes medications * Basal insulin * Lantus 20 units SQ x 1 this AM, then BID per scale to allow for easier titration * 0 units if BSG less than 120 * 8 units if BSG 120-139 * 15 units if BSG 140-200 * 20 units if BSG above 200 * Bolus insulin * NovoLog per scale ACHS and at 0200 tonight * Goal Range: Low 110 mg/dL - High 140 mg/dL * Correction Factor: 20 mg/dL/unit * Nutritional / Prandial insulin per carb ratio of 1 unit per 8 grams CHO consumed PLAN FOR DISCHARGE: * may resume home regimen if no contraindications present at time of discharge
[2019-10-11] MEDS: cefTRIAXone SODIUM 2,000 MG in DEXTROSE 5% 50 ML IV SCH (13:53)
--- NOTE | 2019-10-11 15:50 | Hospitalist Progress Note ---
Date of Service October 11, 2019 Assessment & Plan (1) Pneumonia: breathing better continue Rocephin and Zithromax x 5-7 days WBC normal rhonchi on exam (2) Sepsis: admitted with pneumonia, early signs of possible sepsis SEPSIS IS NOW RULED OUT vitals stable, no fever, breathing well, no evidence of organ failure continue ceftriaxone and azithromycin for 5-7 days total WBC is normal today Solu-Medrol 40 mg IV twice daily for 5 days then stop Blood culture, sputum culture urine culture pending. (3) Acute respiratory failure: As discussed above. due to pneumonia improved today, no distress or increased work of breathing (4) Acute bronchitis: As discussed above nebulizers, Solu Medrol no wheezing on exam, does have rhonchi bilaterally (5) History of CVA (cerebrovascular accident): Continue donepezil 10 mg p.o. every morning, continue aspirin 81 mg p.o. every morning, continue atorvastatin 40 mg p.o. nightly. (6) Weakness: Patient referred to physical and Occupational Therapy (7) DM2 (diabetes mellitus, type 2): A1c pending, hold oral hypoglycemic agents while patient in the hospital to prevent hypoglycemia. Glycemic control per pharmacy, Accu-Cheks before meals and at bedtime. Sliding scale insulin. (8) HTN (hypertension): Stable, continue home medicine losartan 25 mg p.o. every morning. Aspirin 81 mg p.o. every morning. (9) Dementia: Stable, continue memantine 5 mg p.o. nightly. (10) Bradyarrhythmia: Continue home medicine as discussed above. (11) Hyperlipidemia: Lipid panel pending, continue atorvastatin 40 mg p.o. nightly. (12) Discharge planning issues: As discussed above patient lives by himself at home but has a caregiver who comes in the morning and at night 7 days a week. Admission and Anticipated Discharge Date Admission Date: October 10, 2019 Anticipated date of discharge: 10/13/19 Subjective patient is breathing better this morning has a cough, not much mucous production no fever or chills, eating well, no nausea, no chest pain/pressure WBC is 8k, Cr is stable at 1.9 and electrolytes stable participating with therapy while I was there Review of Systems Review of Systems: All systems reviewed & are unremarkable except as noted in HPI & below Constitutional: no fever, no chills, no sweats, no fatigue and no weakness Respiratory: + cough and + dyspnea on exertion; no dyspnea, no pain with cough and no sputum production Cardiovascular: no chest pain and no edema Gastrointestinal: no abdominal pain, no nausea, no vomiting, no constipation and no diarrhea/loose stools Physical Exam Constitutional: WD/WN, vitals as above Eyes: PERRL, conjunctivae normal, anicteric sclerae ENMT: external ear and nose normal, oropharynx normal Neck: trachea midline, no thyromegaly Respiratory: normal respiratory effort; no respiratory distress Auscultation: + diminished lung sounds and + rhonchi (bilaterally); no crackles, no rales and no wheezes Cardiovascular: RRR, no murmur, no edema Gastrointestinal (Abdomen): normal bowel sounds, soft, nontender, no hepatosplenomegaly Musculoskeletal: no cyanosis or clubbing, extremities motor strength 5/5 Skin: no rashes, warm and dry Neurologic: patellar DTR's 2+ bilat, sensation intact and PERRL, EOMI, accommodation nl, no face palsy, no dysarthria Psychiatric: A+Ox3, euthymic affect Lymphatic: no cervical or axillary lymphadenopathy Results & Data ([facility]) Vital Signs (Past 12 Hours) Vital Signs Temp Pulse Pulse Resp BP Pulse Ox 10/11/19 15:08 36.5 C 72 20 127/66 94 10/11/19 11:00 36.9 C 70 28 H 125/74 98 10/11/19 10:52 71 18 94 10/11/19 07:15 71 20 94 10/11/19 07:00 36.5 C 75 16 125/75 94 10/11/19 04:06 36.6 C 70 19 120/64 95 Laboratory Results Laboratory Results - last 24 hr 10/10/19 10/10/19 10/10/19 15:19 15:19 15:19 WBC RBC Hgb Hct MCV MCH MCHC RDW Std Deviation RDW Coeff of Mikal Plt Count MPV Immature Gran % (Auto) Neut % (Auto) Lymph % (Auto) Cotton % (Auto) Eos % (Auto) Baso % (Auto) Immature Gran # (Auto) Neut # (Auto) Lymph # (Auto) Cotton # (Auto) Eos # (Auto) Baso # (Auto) Sodium Potassium Chloride Carbon Dioxide Anion Gap BUN Creatinine Est Cr Clr Drug Dosing Est GFR ( Amer) Est GFR (Non-Af Amer) BUN/Creatinine Ratio Glucose POC Glucose Estimat Average Glucose 151 Hemoglobin A1c 6.9 H Calcium Magnesium 2.2 Total Bilirubin AST ALT Alkaline Phosphatase Troponin I 0.032 NT-Pro-B Natriuret Pep 289 Total Protein Albumin Globulin Albumin/Globulin Ratio Triglycerides Cholesterol LDL Cholesterol, Calc VLDL Cholesterol, Calc HDL Cholesterol Cholesterol/HDL Ratio Procalcitonin < 0.05 TSH 0.866 10/10/19 10/10/19 10/10/19 16:25 20:57 21:52 WBC RBC Hgb Hct MCV MCH MCHC RDW Std Deviation RDW Coeff of Mikal Plt Count MPV Immature Gran % (Auto) Neut % (Auto) Lymph % (Auto) Cotton % (Auto) Eos % (Auto) Baso % (Auto) Immature Gran # (Auto) Neut # (Auto) Lymph # (Auto) Cotton # (Auto) Eos # (Auto) Baso # (Auto) Sodium Potassium Chloride Carbon Dioxide Anion Gap BUN Creatinine Est Cr Clr Drug Dosing Est GFR ( Amer) Est GFR (Non-Af Amer) BUN/Creatinine Ratio Glucose POC Glucose 145 H 161 H Estimat Average Glucose Hemoglobin A1c Calcium Magnesium Total Bilirubin AST ALT Alkaline Phosphatase Troponin I 0.039 NT-Pro-B Natriuret Pep Total Protein Albumin Globulin Albumin/Globulin Ratio Triglycerides Cholesterol LDL Cholesterol, Calc VLDL Cholesterol, Calc HDL Cholesterol Cholesterol/HDL Ratio Procalcitonin TSH 10/10/19 10/11/19 10/11/19 23:49 04:10 06:15 WBC 8.70 RBC 3.97 L Hgb 13.4 L Hct 41.1 L MCV 103.5 H MCH 33.8 MCHC 32.6 RDW Std Deviation 51.5 H RDW Coeff of Mikal 13.7 Plt Count 86 L MPV 11.2 H Immature Gran % (Auto) 0.5 Neut % (Auto) 88.6 Lymph % (Auto) 7.0 Cotton % (Auto) 3.9 Eos % (Auto) 0.0 Baso % (Auto) 0.0 Immature Gran # (Auto) 0.04 H Neut # (Auto) 7.71 H Lymph # (Auto) 0.61 L Cotton # (Auto) 0.34 Eos # (Auto) 0.00 Baso # (Auto) 0.00 Sodium Potassium Chloride Carbon Dioxide Anion Gap BUN Creatinine Est Cr Clr Drug Dosing Est GFR ( Amer) Est GFR (Non-Af Amer) BUN/Creatinine Ratio Glucose POC Glucose 203 H 234 H Estimat Average Glucose Hemoglobin A1c Calcium Magnesium Total Bilirubin AST ALT Alkaline Phosphatase Troponin I NT-Pro-B Natriuret Pep Total Protein Albumin Globulin Albumin/Globulin Ratio Triglycerides Cholesterol LDL Cholesterol, Calc VLDL Cholesterol, Calc HDL Cholesterol Cholesterol/HDL Ratio Procalcitonin TSH 10/11/19 10/11/19 10/11/19 06:15 07:21 11:30 WBC RBC Hgb Hct MCV MCH MCHC RDW Std Deviation RDW Coeff of Mikal Plt Count MPV Immature Gran % (Auto) Neut % (Auto) Lymph % (Auto) Cotton % (Auto) Eos % (Auto) Baso % (Auto) Immature Gran # (Auto) Neut # (Auto) Lymph # (Auto) Cotton # (Auto) Eos # (Auto) Baso # (Auto) Sodium 137 Potassium 4.7 Chloride 109 H Carbon Dioxide 21 Anion Gap 7.0 BUN 35 H Creatinine 1.90 H Est Cr Clr Drug Dosing 29.7 Est GFR ( Amer) 36.2 Est GFR (Non-Af Amer) 31.2 BUN/Creatinine Ratio 18.6 Glucose 235 H POC Glucose 219 H 251 H Estimat Average Glucose Hemoglobin A1c Calcium 8.7 Magnesium Total Bilirubin 0.6 AST 30 ALT 46 Alkaline Phosphatase 71 Troponin I NT-Pro-B Natriuret Pep Total Protein 7.7 Albumin 3.3 L Globulin 4.4 H Albumin/Globulin Ratio 0.7 L Triglycerides 77 Cholesterol 129 LDL Cholesterol, Calc 43 VLDL Cholesterol, Calc 15 HDL Cholesterol 71 Cholesterol/HDL Ratio 2 Procalcitonin TSH Medications Administered Current Inpatient Medications Acetaminophen (Tylenol) 650 mg PO Q4H PRN PRN Reason: Pain or Fever Stop: 11/09/19 14:52 Last Admin: 10/10/19 23:59 Dose: 650 mg Documented by: Al Hydrox/Mg Hydrox/Simethicone (Maalox) 15 ml PO Q4H PRN PRN Reason: Dyspepsia Stop: 11/09/19 14:52 Albuterol (Duoneb) 3 ml NEB Q4R [facility] Stop: 11/09/19 14:59 Last Admin: 10/11/19 14:52 Dose: 3 ml Documented by: Aspirin (Ecotrin Ectab) 81 mg PO QAM [facility] Stop: 11/10/19 08:59 Last Admin: 10/11/19 08:36 Dose: 81 mg Documented by: Atorvastatin Calcium (Lipitor) 40 mg PO HS [facility] Stop: 11/09/19 20:59 Last Admin: 10/10/19 21:04 Dose: 40 mg Documented by: Citalopram Hydrobromide (Celexa) 10 mg PO QAM [facility] Stop: 11/10/19 08:59 Last Admin: 10/11/19 08:35 Dose: 10 mg Documented by: Dextrose (Dextrose 50%) 25 - 50 ml IV UD PRN; Protocol PRN Reason: Hypoglycemia Protocol Stop: 11/09/19 14:52 Dextrose (Dextrose 50%) 25 - 50 ml IV UD PRN; Protocol PRN Reason: Hypoglycemia Protocol Stop: 11/09/19 15:59 Donepezil [facility] ([facility]icept) [facility] [place] Stop: 11/10/19 08:59 Last Admin: 10/11/19 08:35 Dose: 10 mg Documented by: Gabapentin (Neurontin) 200 mg PO BID [facility] Stop: 11/09/19 20:59 Last Admin: 10/11/19 08:36 Dose: 200 mg Documented by: Glucagon (Glucagen) 1 mg SQ UD PRN; Protocol PRN Reason: Hypoglycemia Protocol Stop: 11/09/19 14:52 Glucagon (Glucagen) 1 mg IM UD PRN; Protocol PRN Reason: Hypoglycemia Protocol Stop: 11/09/19 15:59 Glucose (Dex4 Glucose) 4 - 8 tabs PO UD PRN; Protocol PRN Reason: Hypoglycemia Protocol Stop: 11/09/19 14:52 Glucose (Glucose 40%) 15 - 30 gm PO UD PRN; Protocol PRN Reason: Hypoglycemia Protocol Stop: 11/09/19 14:52 Glucose (Glucose 40%) 15 - 30 gm PO UD PRN; Protocol PRN Reason: Hypoglycemia Protocol Stop: 11/09/19 15:59 Glucose (Dex4 Glucose) 4 - 8 tabs PO UD PRN; Protocol PRN Reason: Hypoglycemia Protocol Stop: 11/09/19 15:59 Guaifenesin (Mucinex) 1,200 mg PO BID PRN PRN Reason: Congestion Stop: 11/09/19 15:29 Ceftriaxone Sodium 2,000 mg/ (Dextrose) 70 mls @ 100 mls/hr IV Q24H [facility]; Protocol Stop: 10/18/19 13:59 Last Infusion: 10/11/19 14:35 Dose: Infused Documented by: Azithromycin 250 mg/ Dextrose 252.5 mls @ 125 mls/hr IV DAILY@1300 [facility] Stop: 10/14/19 15:02 Last Infusion: 10/11/19 14:04 Dose: Infused Documented by: Methylprednisolone 40 mg/ (Syringe) 0.64 mls @ 1.5 mls/min IV BID [facility] Stop: 11/09/19 20:59 Last Admin: 10/11/19 08:37 Dose: 1.5 mls/min Documented by: Insulin Aspart (Novolog Flexpen) 0 units SC ACHS [facility] Stop: 11/09/19 16:29 Last Admin: 10/11/19 11:58 Dose: 10 units Documented by: Insulin Glargine (Lantus Solostar Pen) 0 units SC BID [facility]; Protocol Stop: 11/10/19 20:59 Loratadine (Claritin) 10 mg PO QAM [facility] Stop: 11/10/19 08:59 Last Admin: 10/11/19 08:36 Dose: 10 mg Documented by: Losartan Potassium (Cozaar) 25 mg PO QAM [facility] Stop: 11/10/19 08:59 Last Admin: 10/11/19 08:36 Dose: 25 mg Documented by: Magnesium Hydroxide (Milk Of Magnesia) 30 ml PO Q12H PRN PRN Reason: Constipation Stop: 11/09/19 14:52 Memantine (Namenda) 5 mg PO HS [facility] Stop: 11/09/19 20:59 Last Admin: 10/10/19 21:04 Dose: 5 mg Documented by: Miscellaneous (Carbohydrates For Hypoglycemia) 15 - 30 gm PO UD PRN PRN Reason: Hypoglycemia Protocol Stop: 11/09/19 14:52 Miscellaneous (Carbohydrates For Hypoglycemia) 15 - 30 gm PO UD PRN PRN Reason: Hypoglycemia Treatment Stop: 11/09/19 15:59 Miscellaneous Information (Consult Glycemic Management Pharmacy) 1 ea N/A UD PRN PRN Reason: Consult Stop: 11/09/19 15:08 Polyethylene Glycol (Miralax Powder Packet) 17 gm PO DAILY PRN PRN Reason: Constipation Stop: 11/09/19 14:52 Psyllium Hydrophilic Mucilloid (Metamucil) 1 pkt PO DAILY [facility] Stop: 11/10/19 08:59 Last Admin: 10/11/19 08:37 Dose: 1 pkt Documented by: PG Care Time/CCT Total # of Minutes Spent Total Time Spent with Patient: Total time spent is greater than 50% in coordination of care (as documented) at patient's floor/unit and/or counseling patient: Coding Level of Care Code 86672 Subseq Hosp Care Lvl 2 Diagnoses Pneumonia J18.9 Sepsis A41.9 Acute respiratory failure J96.00 Acute bronchitis J20.9 History of CVA (cerebrovascular accident) Z86.73 Weakness R53.1 DM2 (diabetes mellitus, type 2) E11.65; Z79.4 Diabetes mellitus complication status: with hyperglycemia Diabetes mellitus terminal supervisor insulin use: with terminal supervisor use HTN (hypertension) I10 Hypertension type: essential hypertension Dementia F03.90 Dementia behavioral disturbance: without behavioral disturbance Dementia type: unspecified type Bradyarrhythmia I49.8 Hyperlipidemia E78.5 Discharge planning issues Z02.9 (1) DM2 (diabetes mellitus, type 2) Diabetes mellitus complication status: with hyperglycemia Diabetes mellitus assisted insulin use: with terminal supervisor use Qualified Code(s): E11.65 - Type 2 diabetes mellitus with hyperglycemia; Z79.4 - senior living (current) use of insulin (2) Dementia Dementia behavioral disturbance: without behavioral disturbance Dementia type: unspecified type Qualified Code(s): F03.90 - Unspecified dementia without behavioral disturbance (3) HTN (hypertension) Hypertension type: essential hypertension Qualified Code(s): I10 - Essential (primary) hypertension
[2019-10-11] MEDS: ATORVASTATIN 40 MG TAB PO SCH (20:31)
[2019-10-11] MEDS: MEMANTINE HCL 5 MG TAB PO SCH (20:32)
[2019-10-11] MEDS: INSULIN GLARGINE SOLOSTAR 100 UNITS/ML 3 ML PEN SC SCH (20:33)
[2019-10-12] MEDS: ALBUT/IPRATROP 3MG/0.5MG NEB 3 ML VIAL NEB SCH ×6 (03:12→22:35)
[2019-10-12 06:13] LABS: Hematocrit (blood only) 40.2 % (42-52); Hemoglobin 13.2 g/dL (14.0-18.0); Mean Corpuscular Hemoglobin 33.5 pg (25-34); Mean Corpuscular Hgb Conc 32.8 g/dL (32-36); RDW Coefficient of Variation 13.5 % (11.5-14.5); RDW Standard Deviation 51.1 fL (36.4-46.3); Red Blood Count 3.94 M/uL (4.7-6.1); White Blood Count 15.86 K/uL (4.8-10.8)
[2019-10-12 06:32] LABS: Mean Platelet Volume 11.4 fL (7.4-10.4); Platelet Count 84 K/uL (130-400)
[2019-10-12 06:40] LABS: Albumin Level 3.1 gm/dl (3.4-5.0); BUN Creatinine Ratio 20.6 (10-20); Basophils # (auto) 0.01 K/uL (0-0.2); Basophils % (auto) 0.1 %; Calcium 9.2 mg/dl (8.5-10.1); Creatinine Clr Calc Pharmacy 26.9 ml/min; Echinocytes 2+; Est GFR (African American) 31.7; Est GFR (Non-African American) 27.4; Immature Granulocytes # (auto) 0.04 K/uL (0.00-0.02); Immature Granulocytes % (auto) 0.3 %; Lymphocytes # (auto) 0.72 K/uL (1.2-3.4); Lymphocytes % (auto) 4.5 %; Neutrophils # (auto) 14.29 K/uL (1.4-6.5); Neutrophils % (auto) 90.1 %; Potassium 4.6 mmol/L (3.5-5.1)
[2019-10-12 06:43] LABS: Albumin Globulin Ratio 0.7 (0.9-2); Bilirubin,Total 0.4 mg/dl (0.2-1); Globulin 4.2 gm/dl (2.5-4.0); Total Protein 7.3 gm/dl (6.4-8.2)
[2019-10-12] MEDS: PSYLLIUM 58.6% POWDER PACKET PO SCH (08:20)
[2019-10-12] MEDS: GABAPENTIN 100 MG CAP PO SCH ×2 (08:20→20:42)
[2019-10-12] MEDS: DONEPEZIL HCL 10 MG TAB PO SCH (08:20)
[2019-10-12] MEDS: LOSARTAN POTASSIUM 25 MG TAB PO SCH (08:20)
[2019-10-12] MEDS: LORATADINE 10 MG TAB PO SCH (08:21)
[2019-10-12] MEDS: ASPIRIN 81 MG ECTAB PO SCH (08:21)
[2019-10-12] MEDS: CITALOPRAM 20 MG TAB PO SCH (08:21)
[2019-10-12] MEDS: INSULIN GLARGINE SOLOSTAR 100 UNITS/ML 3 ML PEN SC SCH ×2 (08:23→20:39)
[2019-10-12] MEDS: INSULIN ASPART 100 UNITS/ML 3 ML PEN SC SCH ×5 (08:30→21:33)
[2019-10-12] MEDS: methylPREDNISolone 40 MG in SYRINGE 0 ML IV SCH (08:32)
--- NOTE | 2019-10-12 09:57 | Hospitalist Progress Note ---
Date of Service October 12, 2019 Assessment & Plan (1) Pneumonia: breathing better continue Rocephin and Zithromax x 5-7 days WBC up to 15k, likely due to steroids lungs much clearer on exam, better air flow, no oxygen requirement (2) Sepsis: admitted with pneumonia, early signs of possible sepsis SEPSIS IS NOW RULED OUT vitals stable, no fever, breathing well, no evidence of organ failure continue ceftriaxone and azithromycin for 5-7 days total WBC is 15k due to steroids Solu-Medrol 40 mg IV daily while here, no steroids on discharge Blood culture, sputum culture urine culture no growth (3) Acute respiratory failure: As discussed above. due to pneumonia resolved today, breathing room air, no distress or increased work of breathing (4) Acute bronchitis: As discussed above nebulizers, Solu Medrol no wheezing on exam (5) History of CVA (cerebrovascular accident): Continue donepezil 10 mg p.o. every morning, continue aspirin 81 mg p.o. every morning, continue atorvastatin 40 mg p.o. nightly. (6) Weakness: Patient referred to physical and Occupational Therapy will plan to go home with home health/therapy family prefers to avoid SNF as he has been there before (7) DM2 (diabetes mellitus, type 2): hold oral hypoglycemic agents while patient in the hospital to prevent hypoglycemia. Glycemic control per pharmacy, Accu-Cheks before meals and at bedtime. Sliding scale insulin monitor for hypoglycemia, no episodes (8) HTN (hypertension): Stable, continue home medicine losartan 25 mg p.o. every morning. Aspirin 81 mg p.o. every morning. (9) Dementia: Stable, continue memantine 5 mg p.o. nightly. (10) Bradyarrhythmia: Continue home medicine as discussed above. downgrade to medical floor (11) Hyperlipidemia: continue atorvastatin 40 mg p.o. nightly. (12) Discharge planning issues: As discussed above patient lives by himself at home but has a caregiver who comes in the morning and at night 7 days a week. Admission and Anticipated Discharge Date Admission Date: October 10, 2019 Anticipated date of discharge: 10/13/19 Subjective patient feeling a lot better, feeling stronger breathing better, still with cough, no sputum production no fever or chills, no chest pain eating well discussed the PT and OT recommendations, he wants to go home with home PT discussed with his daughter in law, she agrees vitals stable today reviewed labs, WBC 15k, Hb 13, platelets 84, Cr 2.1, K 4.6 Review of Systems Review of Systems: All systems reviewed & are unremarkable except as noted in HPI & below Constitutional: no fever, no fatigue and no weakness Respiratory: + cough; no dyspnea, no dyspnea on exertion and no sputum production Cardiovascular: no chest pain and no edema Gastrointestinal: no abdominal pain, no nausea, no vomiting, no constipation and no diarrhea/loose stools Physical Exam Constitutional: WD/WN, vitals as above Eyes: PERRL, conjunctivae normal, anicteric sclerae ENMT: external ear and nose normal, oropharynx normal Neck: trachea midline, no thyromegaly Respiratory: normal respiratory effort; no respiratory distress Auscultation: + diminished lung sounds; no crackles, no rales, no rhonchi and no wheezes Cardiovascular: RRR, no murmur, no edema Gastrointestinal (Abdomen): normal bowel sounds, soft, nontender, no hepato splenomegaly Musculoskeletal: no cyanosis or clubbing, extremities motor strength 5/5 Skin: no rashes, warm and dry Neurologic: patellar DTR's 2+ bilat, sensation intact and PERRL, EOMI, accommodation nl, no face palsy, no dysarthria Psychiatric: A+Ox3, euthymic affect Lymphatic: no cervical or axillary lymphadenopathy Results & Data ([facility]) Vital Signs (Past 12 Hours) Vital Signs Temp Pulse Pulse Resp BP Pulse Ox 10/12/19 07:35 36.9 C 76 20 143/75 H 98 10/12/19 07:20 69 20 96 10/12/19 03:20 36.4 C L 66 18 140/73 92 10/12/19 03:13 86 20 92 10/11/19 23:35 70 10/11/19 23:28 37.0 C 77 19 115/61 99 10/11/19 23:09 70 16 92 Laboratory Results Laboratory Results - last 24 hr 10/11/19 10/11/19 10/11/19 11:30 16:12 20:10 WBC RBC Hgb Hct MCV MCH MCHC RDW Std Deviation RDW Coeff of Mikal Plt Count MPV Immature Gran % (Auto) Neut % (Auto) Lymph % (Auto) Howell % (Auto) Eos % (Auto) Baso % (Auto) Immature Gran # (Auto) Neut # (Auto) Lymph # (Auto) Howell # (Auto) Eos # (Auto) Baso # (Auto) Echinocytes Sodium Potassium Chloride Carbon Dioxide Anion Gap BUN Creatinine Est Cr Clr Drug Dosing Est GFR ( Amer) Est GFR (Non-Af Amer) BUN/Creatinine Ratio Glucose POC Glucose 251 H 250 H 199 H Calcium Total Bilirubin AST ALT Alkaline Phosphatase Total Protein Albumin Globulin Albumin/Globulin Ratio 10/12/19 10/12/19 10/12/19 05:52 05:52 07:33 WBC 15.86 H RBC 3.94 L Hgb 13.2 L Hct 40.2 L MCV 102.0 H MCH 33.5 MCHC 32.8 RDW Std Deviation 51.1 H RDW Coeff of Mikal 13.5 Plt Count 84 L MPV 11.4 H Immature Gran % (Auto) 0.3 Neut % (Auto) 90.1 Lymph % (Auto) 4.5 Howell % (Auto) 5.0 Eos % (Auto) 0.0 Baso % (Auto) 0.1 Immature Gran # (Auto) 0.04 H Neut # (Auto) 14.29 H Lymph # (Auto) 0.72 L Howell # (Auto) 0.80 H Eos # (Auto) 0.00 Baso # (Auto) 0.01 Echinocytes 2+ Sodium 139 Potassium 4.6 Chloride 108 H Carbon Dioxide 22 Anion Gap 8.0 BUN 44 H Creatinine 2.12 H Est Cr Clr Drug Dosing 26.9 Est GFR ( Amer) 31.7 Est GFR (Non-Af Amer) 27.4 BUN/Creatinine Ratio 20.6 H Glucose 240 H POC Glucose 226 H Calcium 9.2 Total Bilirubin 0.4 AST 35 ALT 40 Alkaline Phosphatase 60 Total Protein 7.3 Albumin 3.1 L Globulin 4.2 H Albumin/Globulin Ratio 0.7 L Medications Administered Current Inpatient Medications Acetaminophen (Tylenol) 650 mg PO Q4H PRN PRN Reason: Pain or Fever Stop: 11/09/19 14:52 Last Admin: 10/10/19 23:59 Dose: 650 mg Documented by: Al Hydrox/Mg Hydrox/Simethicone (Maalox) 15 ml PO Q4H PRN PRN Reason: Dyspepsia Stop: 11/09/19 14:52 Albuterol (Duoneb) 3 ml NEB Q4R [facility] Stop: 11/09/19 14:59 Last Admin: 10/12/19 07:20 Dose: 3 ml Documented by: Aspirin (Ecotrin Ectab) 81 mg PO QAM [facility] Stop: 11/10/19 08:59 Last Admin: 10/12/19 08:21 Dose: 81 mg Documented by: Atorvastatin Calcium (Lipitor) 40 mg PO HS [facility] Stop: 11/09/19 20:59 Last Admin: 10/11/19 20:31 Dose: 40 mg Documented by: Citalopram Hydrobromide (Celexa) 10 mg PO QAM [facility] Stop: 11/10/19 08:59 Last Admin: 10/12/19 08:21 Dose: 10 mg Documented by: Dextrose (Dextrose 50%) 25 - 50 ml IV UD PRN; Protocol PRN Reason: Hypoglycemia Protocol Stop: 11/09/19 14:52 Dextrose (Dextrose 50%) 25 - 50 ml IV UD PRN; Protocol PRN Reason: Hypoglycemia Protocol Stop: 11/09/19 15:59 Donepezil HCl (Aricept) 10 mg PO QAM [facility] Stop: 11/10/19 08:59 Last Admin: 10/12/19 08:20 Dose: 10 mg Documented by: Gabapentin (Neurontin) 200 mg PO BID [facility] Stop: 11/09/19 20:59 Last Admin: 10/12/19 08:20 Dose: 200 mg Documented by: Glucagon (Glucagen) 1 mg SQ UD PRN; Protocol PRN Reason: Hypoglycemia Protocol Stop: 11/09/19 14:52 Glucagon (Glucagen) 1 mg IM UD PRN; Protocol PRN Reason: Hypoglycemia Protocol Stop: 11/09/19 15:59 Glucose (Dex4 Glucose) 4 - 8 tabs PO UD PRN; Protocol PRN Reason: Hypoglycemia Protocol Stop: 11/09/19 14:52 Glucose (Glucose 40%) 15 - 30 gm PO UD PRN; Protocol PRN Reason: Hypoglycemia Protocol Stop: 11/09/19 14:52 Glucose (Glucose 40%) 15 - 30 gm PO UD PRN; Protocol PRN Reason: Hypoglycemia Protocol Stop: 11/09/19 15:59 Glucose (Dex4 Glucose) 4 - 8 tabs PO UD PRN; Protocol PRN Reason: Hypoglycemia Protocol Stop: 11/09/19 15:59 Guaifenesin (Mucinex) 1,200 mg PO BID PRN PRN Reason: Congestion Stop: 11/09/19 15:29 Ceftriaxone Sodium 2,000 mg/ (Dextrose) 70 mls @ 100 mls/hr IV Q24H [facility]; Protocol Stop: 10/18/19 13:59 Last Infusion: 10/11/19 14:35 Dose: Infused Documented by: Azithromycin 250 mg/ Dextrose 252.5 mls @ 125 mls/hr IV DAILY@1300 [facility] Stop: 10/14/19 15:02 Last Infusion: 10/11/19 14:04 Dose: Infused Documented by: Methylprednisolone 40 mg/ (Syringe) 0.64 mls @ 1.5 mls/min IV DAILY [facility] Stop: 11/11/19 08:59 Last Admin: 10/12/19 08:32 Dose: 1.5 mls/min Documented by: Insulin Aspart (Novolog Flexpen) 0 units SC ACHS [facility] Stop: 11/09/19 16:29 Last Admin: 10/12/19 08:30 Dose: 17 units Documented by: Insulin Glargine (Lantus Solostar Pen) 0 units SC BID [facility]; Protocol Stop: 11/10/19 20:59 Last Admin: 10/12/19 08:23 Dose: 20 units Documented by: Loratadine (Claritin) 10 mg PO QAM [facility] Stop: 11/10/19 08:59 Last Admin: 10/12/19 08:21 Dose: 10 mg Documented by: Losartan Potassium (Cozaar) 25 mg PO QAM [facility] Stop: 11/10/19 08:59 Last Admin: 10/12/19 08:20 Dose: 25 mg Documented by: Magnesium Hydroxide (Milk Of Magnesia) 30 ml PO Q12H PRN PRN Reason: Constipation Stop: 11/09/19 14:52 Memantine (Namenda) 5 mg PO HS [facility] Stop: 11/09/19 20:59 Last Admin: 10/11/19 20:32 Dose: 5 mg Documented by: Miscellaneous (Carbohydrates For Hypoglycemia) 15 - 30 gm PO UD PRN PRN Reason: Hypoglycemia Protocol Stop: 11/09/19 14:52 Miscellaneous (Carbohydrates For Hypoglycemia) 15 - 30 gm PO UD PRN PRN Reason: Hypoglycemia Treatment Stop: 11/09/19 15:59 Miscellaneous Information (Consult Glycemic Management Pharmacy) 1 ea N/A UD PRN PRN Reason: Consult Stop: 11/09/19 15:08 Polyethylene Glycol (Miralax Powder Packet) 17 gm PO DAILY PRN PRN Reason: Constipation Stop: 11/09/19 14:52 Psyllium Hydrophilic Mucilloid (Metamucil) 1 pkt PO DAILY [facility] Stop: 11/10/19 08:59 Last Admin: 10/12/19 08:20 Dose: 1 pkt Documented by: PG Care Time/CCT Total # of Minutes Spent Total Time Spent with Patient: Total time spent is greater than 50% in coordination of care (as documented) at patient's floor/unit and/or counseling patient: Coding Level of Care Code 57049 Subseq Hosp Care Lvl 3 Diagnoses Pneumonia J18.9 Sepsis A41.9 Acute respiratory failure J96.00 Acute bronchitis J20.9 History of CVA (cerebrovascular accident) Z86.73 Weakness R53.1 DM2 (diabetes mellitus, type 2) E11.65; Z79.4 Diabetes mellitus complication status: with hyperglycemia Diabetes mellitus [facility] insulin use: with terminal computer operator use HTN (hypertension) I10 Hypertension type: essential hypertension Dementia F03.90 Dementia behavioral disturbance: without behavioral disturbance Dementia type: unspecified type Bradyarrhythmia I49.8 Hyperlipidemia E78.5 Discharge planning issues Z02.9 (1) DM2 (diabetes mellitus, type 2) Diabetes mellitus complication status: with hyperglycemia Diabetes mellitus [facility] insulin use: with [facility] use Qualified Code(s): E11.65 - Type 2 diabetes mellitus with hyperglycemia; Z79.4 - intermediate (current) use of insulin (2) Dementia Dementia behavioral disturbance: without behavioral disturbance Dementia type: unspecified type Qualified Code(s): F03.90 - Unspecified dementia without behavioral disturbance (3) HTN (hypertension) Hypertension type: essential hypertension Qualified Code(s): I10 - Essential (primary) hypertension
--- NOTE | 2019-10-12 12:39 | Pharmacy Report ---
Pharmacy Glycemic Short Note 2 - Date of Service October 12, 2019 - Glycemic Short BSG Results (Last 24 hours): 10/11/19 10/11/19 10/12/19 16:12 20:10 05:52 Glucose 240 H POC Glucose 250 H 199 H 10/12/19 10/12/19 07:33 11:57 Glucose POC Glucose 226 H 197 H OUTPATIENT ANTIDIABETIC REGIMEN: * Basaglar 15 units Q AM * Linagliptin 5mg PO Q AM * A1c = 6.9% 10/10/19 ASSESSMENT: 10/11 * BSGs remain elevated above goal * Over the last 24 hrs pt has received 73 units SQ insulin however BSGs never fell below 199 * Fasting BSG 226 with 35 units of Lantus on board (home dose is only 15 units daily) * Steroid dose reduced 50% this AM, will not receive PM dose Solu-Medrol. Will reduce PM Lantus dose and dose per scale out of precaution. * Will continue more aggressive Novolog doses for time being as effects of AM dose likely to persist thru breakfast and lunch, possibly dinner 10/10 * Type 2 diabetic admitted for acute resp failure / sepsis * Pt appears to be well controlled with outpt regimen based upon recent A1c results * Pt acutely hyperglycemic this admission due to IV steroid administration * Fasting BSG 219 this AM with 25 units basal insulin on board and after receiving 6 units correctional insulin overnight - will uptitrate * Today's insulin doses will be based upon pt weight and mod-severe stress level. Lantus dosing scale utilized due to possibility of changing steroid dose PLAN FOR INPATIENT GLYCEMIC CONTROL: * Hold outpatient oral diabetes medications * Basal insulin * Lantus BID per scale: * 0 units if BSG less than 120 * 5 units if BSG 120-180 * 10 units if BSG above 180 * Bolus insulin * NovoLog per scale ACHS and at 0200 tonight * Goal Range: Low 110 mg/dL - High 140 mg/dL * Correction Factor: 18 mg/dL/unit * Nutritional / Prandial insulin per carb ratio of 1 unit per 6 grams CHO consumed PLAN FOR DISCHARGE: * may resume home regimen if no contraindications present at time of discharge
[2019-10-12] MEDS: AZITHROMYCIN 250 MG in DEXTROSE 5% 250 ML IV SCH (12:57)
[2019-10-12] MEDS: cefTRIAXone SODIUM 2,000 MG in DEXTROSE 5% 50 ML IV SCH (13:57)
[2019-10-12] MEDS: INSULIN ASPART 100 UNITS/ML 3 ML PEN SC ONE (17:47)
[2019-10-12] MEDS: ATORVASTATIN 40 MG TAB PO SCH (20:42)
[2019-10-12] MEDS: MEMANTINE HCL 5 MG TAB PO SCH (20:42)
[2019-10-13] MEDS: INSULIN ASPART 100 UNITS/ML 3 ML PEN SC ONE (02:16)
[2019-10-13] MEDS: ALBUT/IPRATROP 3MG/0.5MG NEB 3 ML VIAL NEB SCH ×4 (03:21→14:25)
[2019-10-13] MEDS ORDERED: INSULIN GLARGINE SOLOSTAR 100 UNITS/ML 3 ML PEN SC SCH (09:00)
[2019-10-13] MEDS: INSULIN ASPART 100 UNITS/ML 3 ML PEN SC SCH ×2 (09:33→12:44)
[2019-10-13] MEDS: PSYLLIUM 58.6% POWDER PACKET PO SCH (09:59)
[2019-10-13] MEDS: LORATADINE 10 MG TAB PO SCH (09:59)
[2019-10-13] MEDS: DONEPEZIL HCL 10 MG TAB PO SCH (09:59)
[2019-10-13] MEDS: CITALOPRAM 20 MG TAB PO SCH (09:59)
[2019-10-13] MEDS: GABAPENTIN 100 MG CAP PO SCH (09:59)
[2019-10-13 10:00] LABS: Basophils # (auto) 0.01 K/uL (0-0.2); Basophils % (auto) 0.1 %; Hematocrit (blood only) 39.8 % (42-52); Hemoglobin 13.1 g/dL (14.0-18.0); Immature Granulocytes # (auto) 0.08 K/uL (0.00-0.02); Immature Granulocytes % (auto) 0.5 %; Lymphocytes # (auto) 1.97 K/uL (1.2-3.4); Lymphocytes % (auto) 12.3 %; Mean Corpuscular Hemoglobin 33.6 pg (25-34); Mean Corpuscular Hgb Conc 32.9 g/dL (32-36); Mean Corpuscular Volume 102.1 fL (80-100); Mean Platelet Volume 10.8 fL (7.4-10.4); Monocytes # (auto) 1.24 K/uL (0.11-0.59); Monocytes % (auto) 7.7 %; Neutrophils # (auto) 12.78 K/uL (1.4-6.5); Neutrophils % (auto) 79.4 %; Platelet Count 104 K/uL (130-400); RDW Coefficient of Variation 13.9 % (11.5-14.5); RDW Standard Deviation 51.9 fL (36.4-46.3); White Blood Count 16.08 K/uL (4.8-10.8)
[2019-10-13] MEDS: LOSARTAN POTASSIUM 25 MG TAB PO SCH (10:00)
[2019-10-13] MEDS: ASPIRIN 81 MG ECTAB PO SCH (10:00)
[2019-10-13] MEDS: methylPREDNISolone 40 MG in SYRINGE 0 ML IV SCH (10:02)
[2019-10-13 10:28] LABS: BUN Creatinine Ratio 22.2 (10-20); Calcium 8.9 mg/dl (8.5-10.1); Creatinine Clr Calc Pharmacy 26.9 ml/min; Est GFR (African American) 31.7; Est GFR (Non-African American) 27.4; Potassium 4.4 mmol/L (3.5-5.1)
[2019-10-13 10:31] LABS: Albumin Globulin Ratio 0.8 (0.9-2); Bilirubin,Total 0.5 mg/dl (0.2-1); Globulin 3.8 gm/dl (2.5-4.0); Total Protein 6.8 gm/dl (6.4-8.2)
--- NOTE | 2019-10-13 11:41 | Discharge Summary ---
Date of Service October 13, 2019 Admission HPI Per Admitting Provider The patient is an 84 years old male with past medical history of CVA, bradyarrhythmia, implanted pacemaker, depression, diabetes mellitus type 2, hypertension, Alzheimer dementia who was brought to the emergency room from his home with a complaint that he is short of breath coughing and increasingly weak. Patient daughter is at the bedside and she reports that patient shortness of breath was increasing and worsening. Patient has productive sputum. The sputum is greenish in color. Family reports no blood in there. She states that patient lives at home by himself but has a caregiver coming twice a day in the [place] and at night sorting his medication helping him to feed and cooking food and getting around. Patient has roller walker and uses to get around. Patient is poor historian and he is alerted in person and space. His daughter said that this is his baseline, but in comparison to 5 days ago he is much more lucid. The patient's daughter reports that he was feeling some cold chills but did not record any fever. Patient denies fever, headache, chest pain, abdominal pain, frequency, urgency. Patient was not using oxygen at home prior to this episode. Labs are reviewed: Sodium 139, potassium 4.1, chloride 108, carbon dioxide 25, anion gap 6, BUN 34, creatinine 1.97, GFR 29.9, BUN 17.3, glucose 230, lactate 2.4, repeated 1.8, calcium 9, magnesium 2.1, total bilirubin 1, AST 27, ALT 50, alkaline phosphatase 72, troponin 0.0 21, total protein 7.4, albumin 3.3, globulin 4.1, lipase 96. Urine cloudy, protein 1+, urine ketones trace urine nitrate negative, 10-30 hyaline casts, epithelial cells 10-20. Negative for influenza A and B. CT chest without contrast: Diffuse bronchial wall thickening and scattered subsegmental endobronchial debris which may suggest bronchitis infectious or inflammatory. No focal infiltrate to suggest pneumonia. Minimal bibasilar atelectasis. Borderline cardiomegaly. CT of the head: No acute intracranial abnormality or calvarial fracture. CT abdomen and pelvis no acute intra-abdominal or pelvic abnormality. No acute fracture or evidence of acute solid organ injury. Urine culture, blood culture and sputum cultures pending. Principal Diagnosis Pneumonia Discharge Exam Constitutional WD/WN, vitals as above Eyes PERRL, conjunctivae normal, anicteric sclerae ENMT external ear and nose normal, oropharynx normal Neck trachea midline, no thyromegaly Respiratory normal respiratory effort; no respiratory distress Auscultation: + diminished lung sounds; no crackles, no rales, no rhonchi and no wheezes Cardiovascular RRR, no murmur, no edema Gastrointestinal (Abdomen) normal bowel sounds, soft, nontender, no hepatosplenomegaly Musculoskeletal no cyanosis or clubbing, extremities motor strength 5/5 Skin no rashes, warm and dry Neurologic patellar DTR's 2+ bilat, sensation intact and PERRL, EOMI, accommodation nl, no face palsy, no dysarthria Psychiatric A+Ox3, euthymic affect Lymphatic no cervical or axillary lymphadenopathy Discharge Data Allergies Allergy/AdvReac Type Severity Reaction Status Date / Time No Known Allergies Allergy Unverified 10/10/19 13:22 Consultations 10/10/19 13:09 ED Decision to Admit Stat Ordered Studies 10/10/19 11:15 CT chest wo con Stat CT head/brain wo con Stat 10/10/19 11:16 CT abd pelvis wo con Stat Hospital Course (1) Pneumonia: breathing much better treated with Rocephin and Zithromax while admitted convert to Cefdinir 300mg BID and Zithromax on discharge WBC elevated, likely due to steroids lungs much clearer on exam, better air flow, no oxygen requirement (2) Acute respiratory failure: As discussed above. due to pneumonia resolved for two days, breathing room air, no distress or increased work of breathing (3) Acute bronchitis: As discussed above nebulizers, Solu Medrol no wheezing on exam will d/c on Prednisone 20mg daily for three more days (4) History of CVA (cerebrovascular accident): Continue donepezil 10 mg p.o. every morning, continue aspirin 81 mg p.o. e very morning, continue atorvastatin 40 mg p.o. nightly. (5) Weakness: Patient referred to physical and Occupational Therapy will plan to go home with home health/therapy family prefers to avoid SNF as he has been there before (6) DM2 (diabetes mellitus, type 2): hold oral hypoglycemic agents while patient in the hospital to prevent hypoglycemia. Glycemic control per pharmacy, Accu-Cheks before meals and at bedtime. Sliding scale insulin monitor for hypoglycemia, no episodes (7) HTN (hypertension): Stable, continue home medicine losartan 25 mg p.o. every morning. Aspirin 81 mg p.o. every morning. (8) Dementia: Stable, continue memantine 5 mg p.o. nightly. (9) Bradyarrhythmia: Continue home medicine as discussed above. downgrade to medical floor (10) Hyperlipidemia: continue atorvastatin 40 mg p.o. nightly. Total Time Total Time Spent Total Time Spent (In Minutes): 31 minutes Total Time Includes: Examination of the Patient, Discharge Planning and Medication Reconciliation Discharge Plan Discharge Items Patient Disposition: Home - Home Health Services Reason For Visit: Bronchial pneumonia Discharge Diagnosis: Bronchial pneumonia Cough Dyspnea Condition on Discharge: Good Goals: improve breathing with antibiotics, steroids improve strength and mobility improve nutrition, hydration Activity: Resume your previous activity Weightbearing: Full weightbearing Non-emergency contact: Primary Care Provider Call non-emergency contact if: you have any medication questions, your symptoms worsen and you have a fever Follow-up/Referrals: Pratik Fragoso [Primary Care Provider] - (DR. VILLALPANDO WILL CALL YOU FOR A FOLLOW UP APPOINTMENT ) Diet: Carb Consistent or DM2 Addtl Attending Provider Instructions: Medications: - AZITHROMYCIN: 250mg daily for one more day, take tomorrow - CEFDINIR: 300mg twice a day for three more days - PREDNISONE: 20mg daily for three days then stop, no need to taper - ALBUTEROL: 1 puff every 6 hours as needed for shortness of breath/cough Acute bronchitis, bronchial pneumonia CT of the chest showed bronchitis, inflammatory changes no evidence of any consolidation to suggest pneumonia, no pulmonary edema improved over past few days with IV antibiotics, steroids, nebulizers you will likely continue to cough for several days, possibly a few weeks it is common to have a lingering non-productive cough from viral illness complete the above medications follow up with primary care doctor in one week Pending Studies at Discharge: No Stand-Alone Forms: My [employer], Smoking Cessation Medications and DC Order Prescriptions: New albuterol sulfate 90 mcg/actuation HFA aerosol inhaler 1 puffs INH Q6H PRN (Reason: shortness of breath or wheezing) Qty: 8.5 RF: 1 Continued Metamucil 3.4 gram/5.4 gram Powder 1 tbsp PO DAILY RF: 0 atorvastatin 40 mg tablet 40 mg PO HS RF: 0 aspirin 81 mg Tablet,Delayed Release (Dr/Ec) 81 mg PO QAM RF: 0 acetaminophen [Tylenol Extra Strength] 500 mg Tablet 5,000 mg PO BID RF: 0 losartan 25 mg tablet 25 mg PO QAM RF: 0 Tradjenta 5 mg tablet 5 mg PO QAM RF: 0 citalopram 10 mg tablet 10 mg PO QAM RF: 0 donepezil 10 mg tablet 10 mg PO QAM RF: 0 gabapentin 100 mg capsule 200 mg PO BID RF: 0 loratadine 10 mg Tablet 10 mg PO QAM RF: 0 memantine 5 mg Tablet 5 mg PO HS RF: 0 guaifenesin 1,200 mg Tablet Extended Release 12hr 1,200 mg PO BID PRN (Reason: Congestion) RF: 0 Basaglar KwikPen U-100 Insulin 100 unit/mL (3 mL) insulin pen 15 unit SUBCUT QAM RF: 0 Discharge Orders: Discharge Order (Routine); Ordered 10/13/19 Ordered By: Sandip Grace/Other Patient Handouts: Pneumonia Admission Data Admit Date/Time: 10/10/19 13:50 Attending Provider: Sandip Hilario Admit Provider: Harlan Gonzalez Primary Care Provider: Pratik Fragoso Other Providers: Harlan Gonzalez Other Interventions: Discharge Summary Assessment (RN) Last Done: 10/13/19 11:45 DC Date/Time DO NOT enter until pt leaves facility: 10/13/19 15:29 Coding Level of Care Code D/C Day Management >30 mins Diagnoses Pneumonia J18.9 Acute respiratory failure J96.00 Acute bronchitis J20.9 History of CVA (cerebrovascular accident) Z86.73 Weakness R53.1 DM2 (diabetes mellitus, type 2) E11.65; Z79.4 Diabetes mellitus complication status: with hyperglycemia Diabetes mellitus intermediate insulin 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
[2019-10-13] MEDS: AZITHROMYCIN 250 MG in DEXTROSE 5% 250 ML IV SCH (13:30)
[2019-10-13] MEDS: cefTRIAXone SODIUM 2,000 MG in DEXTROSE 5% 50 ML IV SCH (13:30)
== END 2019-10-13 15:29 | disposition home health service (06) | DRG 871 ==
LOC: ED 10:04 → SUATTDRO 13:50 → 2E 13:50 → 3W 10-12 09:54

== ENCOUNTER 2022-05-11 12:28 | Inpatient (IN) ==
[2022-05-11] MEDS ORDERED: SODIUM CHLORIDE 0.9% 500 ML IV STA (12:35)
[2022-05-11] MEDS ORDERED: VANCOMYCIN HCL 2,500 MG in SODIUM CHLORIDE 0.9% 500 ML IV STA (13:00)
--- NOTE | 2022-05-11 13:16 | XRay Report ---
XR chest 1V portable HISTORY: 87 years-old Male Fever acute fever COMPARISON: Chest radiograph 05/10/2022 TECHNIQUE: Portable AP view of the chest FINDINGS: Cardiac silhouette is enlarged. Left subclavian pacer. No pneumothorax, pleural effusion, airspace co nsolidation or overt pulmonary edema. Mild subsegmental bibasilar atelectasis. Degenerative changes o f the shoulders and spine. Right shoulder rotator cuff calcific tendinosis. IMPRESSION: No acute process. ACT 112: Negative or not required by law. The above report was generated using voice recognition software. It may contain grammatical, syntax o r spelling errors. Electronically signed by: Derek Summers M.D. 05/11/2022 1:14 PM
--- NOTE | 2022-05-11 13:25 | Emergency Department Note ---
Impression & Plan Bacteremia, Orthostatic hypotension, Elevated troponin I level, Thrombocytopenia ED Provider Note NAME: FACUNDO AGUIRRE AGE: 87 SEX: M : 1935 ARRIVES VIA: Walk-In INFORMANT: Patient, patient's family member ED PROVIDER(S): Eliseo Devi DO CHIEF COMPLAINT: Positive blood culture HPI: Patient is an 87-year-old male who presented to the emergency department for an evaluation. The patient was seen yesterday in our facility. He was seen because he had an episode of weakness where he became hypotensive. He was haresh daisy with IV fluids yesterday. He was no longer hypotensive and no cause for his hypotension could be found. This was presumed to be secondary to orthostatic hypotension. The patient did not have any infectious source yesterday. The family members were encouraged to monitor the patient's symptoms and follow-up with the primary care physician. He was told to come back to the emergency department by the emergency department pharmacist after discussion with me as the patient had positive blood cultures for staph epidermidis. The patient was instructed to return. The patient's family member presented with him. She has noticed that he has had some episodes of diarrhea recently. He has had no vomiting. He had no fever. When questioned about a rash he did note that the patient's right great toe was mildly erythematous. He has had no recent trauma. He has had no vomiting. He denies having any back pain at this time. ROS: See above HPI for pertinent positives & negatives. A total of 10 systems reviewed and were otherwise negative. PAST MEDICAL HISTORY: See Below PAST SURGICAL HISTORY: See Below FAMILY HISTORY: See Below SOCIAL HISTORY: See Below HOME MEDICATIONS: See Below ALLERGIES: See Below VITALS: See Below PHYSICAL EXAMINATION: GENERAL: The patient is awake and alert. He is nonanxious appearing. EYES: The conjunctivae are clear. The pupils are round and reactive. EARS, NOSE, MOUTH AND THROAT: The nose is without any evidence of any deformity. NECK: The neck is nontender and supple. RESPIRATORY: Normal respiratory effort is noted there is no evidence of wheezing rhonchi or rales CARDIOVASCULAR: Regular rate and rhythm noted there no murmurs rubs or gallops normal S1 normal S2. GASTROINTESTINAL: The abdomen is soft and nondistended. There is no tenderness guarding or rigidity. MUSCULOSKELETAL/EXTREMITIES: There is no evidence of gross deformity full range of motion is noted in the hips and shoulders. SKIN: Pulses are symmetric in both feet. Trace pedal edema was noted bilaterally. There was mild erythema on the outside aspect of the right great toe. There is no paronychia appreciated. NEUROLOGIC: Patient is awake and oriented to person place but not time or situation. Strength is symmetric but diminished. MEDICAL DECISION MAKING: The patient is a 87-year-old male who presented to the emergency department for an evaluation. The patient was seen in our facility yesterday. He had orthostatic hypotension. At that time he was somewhat confused according to family so further laboratory and radiographic studies were obtained. He had a septic work-up. The patient was called to come back to the emergency department today because he had blood cultures were positive for staph epidermidis. He was treated with IV fluids and IV antibiotics in the emergency department. I discussed the patient's laboratory and radiographic studies with him. I also discussed his case with the on-call [facility] hospitalist group. They have agreed to evaluate the patient in the emergency department for further management and disposition. Triage Nursing notes reviewed. Prior medical records reviewed Vital Signs: reviewed and remarkable for elevated blood pressure. Differential diagnosis: Viral syndrome, otitis, pharyngitis, pneumonia, influenza, meningitis, urinary tract infection, sepsis, bacteremia, as well as other pathologies. ER treatment provided: See below Diagnostics interpreted by me: ECG: EKG was obtained in the emergency department. My interpretation is atrial paced rhythm with ventricular sensing. 72 bpm. Right bundle branch block pa ttern was noted. This was compared to a tracing from May 10, 2022. No changes were noted. Cardiac Monitoring: An order was placed for continuous cardiac monitoring. The monitor shows a rate of 71 bpm with sinus rhythm. Laboratory studies: As stated above and show below. Imaging studies: See below Consultation(s): I discussed this case with Dr. [facility]. Past Med/Surg History Medical History (Updated 05/11/22 @ 15:23 by Eliseo Devi DO) Bradyarrhythmia CVA (cerebral vascular accident) Dementia Depression DM2 (diabetes mellitus, type 2) DVT prophylaxis HTN (hypertension) Pacemaker Family History Other Family history non-contributory Social History Smoking Status: Former smoker Tobacco Type: Cigarettes Second Hand Exposure: No; Hx Alcohol Use: No Hx Substance Use: No Preferred Language: Bolivian Communication Ability: Effective Sourcing Engineer Required: No Beliefs That Will Affect Care: None marital status: / Current Living Situation: Alone Current Living Situation Comment: patient has caregivers current occupational status: retired Feels Safe at Home: Yes Assistive Devices: Walker Allergies Allergies Allergy/AdvReac Type Severity Reaction Status Date / Time No Known Allergies Allergy Unverified 01/22/22 15:52 Home Meds Home Medications Medication Instructions Recorded Confirmed acetaminophen 500 mg tablet 1,000 mg PO BID 12/19/18 05/10/22 (Tylenol Extra Strength) aspirin 81 mg tablet,delayed 81 mg PO QAM 12/19/18 05/10/22 release atorvastatin 40 mg tablet 40 mg PO UD 12/19/18 05/10/22 linagliptin 5 mg tablet (Tradjenta) 5 mg PO QAM 12/19/18 05/10/22 psyllium husk 3.4 gram/5.4 gram 0.5 tbsp PO DAILY 07/02/19 05/10/22 oral powder (Metamucil) donepezil 10 mg tablet 10 mg PO HS 10/10/19 05/10/22 guaifenesin 1,200 mg tablet, 1,200 mg PO BID PRN Congestion 10/10/19 05/10/22 extended release 12 hr loratadine 10 mg tablet 10 mg PO DAILY@1200 10/10/19 05/10/22 cholecalciferol (vitamin D3) 125 125 mcg PO DAILY@1200 05/05/21 05/10/22 mcg (5,000 unit) tablet (Vitamin D3) memantine 10 mg tablet (Namenda) 10 mg PO HS 05/05/21 05/10/22 gabapentin 100 mg capsule 200 mg PO TID 01/22/22 05/10/22 insulin glargine 100 unit/mL (3 20 unit subcut QPM 01/22/22 05/10/22 mL) subcutaneous pen (Lantus Solostar U-100 Insulin) Results & Data (ED) Vital Signs Vital Signs - 24 hr 05/11/22 12:30 05/11/22 14:00 05/11/22 14:00 Temperature 36.8 C Temperature Source Temporal Artery Scan Pulse Rate 74 72 Pulse Rate [Right Apical] 73 Pulse Rate from SpO2 Sensor 74 Respiratory Rate 18 20 15 Respiratory Effort / Characteristics Non-Labored Respiratory Depth Normal Blood Pressure 138/92 182/112 H Blood Pressure [Right Arm] 182/112 H Blood Pressure Mean 107 135 Blood Pressure Mean [Right Arm] 135 Blood Pressure Position Sitting Pulse Oximetry 94 96 96 Oxygen Delivery Method Room Air Room Air Sepsis Recent Fever Within 48 Hours No Sepsis New/Unexplained Change in Mental Status No Sepsis Action Taken by Nursing No Action Required 05/11/22 14:55 05/11/22 15:00 Temperature Temperature Source Pulse Rate 70 71 Pulse Rate [Right Apical] Pulse Rate from SpO2 Sensor 71 71 Respiratory Rate 14 12 Respiratory Effort / Characteristics Respiratory Depth Blood Pressure 149/91 H 148/88 H Blood Pressure [Right Arm] Blood Pressure Mean 110 108 Blood Pressure Mean [Right Arm] Blood Pressure Position Pulse Oximetry 97 96 Oxygen Delivery Method Sepsis Recent Fever Within 48 Hours Sepsis New/Unexplained Change in Mental Status Sepsis Action Taken by Skilled Nursing Medications Current Medication List: was personally reviewed by me Laboratory Data Attestation: I reviewed the patient's lab results. Result diagrams: 05/11/22 13:22 05/11/22 13:22 Lab Results 05/11/22 05/11/22 05/11/22 Range/Units 13:22 13:22 13:22 WBC 9.90 (4.8-10.8) K/ul RBC 4.48 L (4.63-6.08) M/uL Hgb 15.1 (14.0-18.0) g/dl Hct 45.1 (40.1-51.0) % MCV 100.7 H (80.0-100.0) fL MCH 33.7 (25.0-34.0) pg MCHC 33.5 (32.0-36.0) g/dL RDW Std Deviation 46.7 H (36.4-46.3) fL RDW Coeff of Mikal 12.3 (11.5-14.5) % Plt Count 77 L (130-400) K/uL MPV 11.2 (9.4-12.4) fL Immature Gran % (Auto) 0.4 % Neut % (Auto) 68.7 % Lymph % (Auto) 19.7 % Winkler % (Auto) 7.8 % Eos % (Auto) 3.0 % Baso % (Auto) 0.4 % Neut # (Auto) 6.80 H (1.4-6.5) K/uL Lymph # (Auto) 1.95 (1.2-3.4) K/uL Winkler # (Auto) 0.77 (0.24-0.82) K/uL Eos # (Auto) 0.30 (0-0.50) K/uL Baso # (Auto) 0.04 (0-0.2) K/uL Immature Gran # (Auto) 0.04 H (0.00-0.02) K/uL Platelet Estimate Decreased L (Normal) ESR 24 H (0-20) mm/hr PT Cancelled INR Cancelled APTT Cancelled PTT Ratio Cancelled Sodium (136-145) mmol/L Potassium (3.5-5.1) mmol/L Chloride (98-107) mmol/L Carbon Dioxide (21-32) mmol/L Anion Gap (3-11) BUN (6-23) mg/dl Creatinine (0.6-1.4) mg/dl Est Cr Clr Drug Dosing Est GFR ( Amer) ml/min Est GFR (Non-Af Amer) ml/min BUN/Creatinine Ratio (10-20) Glucose (70-99(Fasting)) mg/dl Lactate (0.4-2.0) mmol/L Calcium (8.5-10.1) mg/dl Total Bilirubin (0.2-1.0) mg/dl AST (13-39) U/L ALT (7-52) U/L Alkaline Phosphatase (34-104) U/L Troponin I High Sens (0-20) pg/ml C-Reactive Protein (0-0.5) mg/dl Total Protein (6.0-8.3) gm/dl Albumin (3.4-5.0) gm/dl Globulin (2.5-4.0) gm/dl Albumin/Globulin Ratio (0.9-2) Lipase (11-82) U/L Procalcitonin (0-0.5) ng/ml 05/11/22 05/11/22 05/11/22 Range/Units 13:22 13:22 13:22 WBC (4.8-10.8) K/ul RBC (4.63-6.08) M/uL Hgb (14.0-18.0) g/dl Hct (40.1-51.0) % MCV (80.0-100.0) fL MCH (25.0-34.0) pg MCHC (32.0-36.0) g/dL RDW Std Deviation (36.4-46.3) fL RDW Coeff of Mikal (11.5-14.5) % Plt Count (130-400) K/uL MPV (9.4-12.4) fL Immature Gran % (Auto) % Neut % (Auto) % Lymph % (Auto) % Winkler % (Auto) % Eos % (Auto) % Baso % (Auto) % Neut # (Auto) (1.4-6.5) K/uL Lymph # (Auto) (1.2-3.4) K/uL Winkler # (Auto) (0.24-0.82) K/uL Eos # (Auto) (0-0.50) K/uL Baso # (Auto) (0-0.2) K/uL Immature Gran # (Auto) (0.00-0.02) K/uL Platelet Estimate (Normal) ESR (0-20) mm/hr PT INR APTT PTT Ratio Sodium 142 (136-145) mmol/L Potassium 4.3 (3.5-5.1) mmol/L Chloride 107 (98-107) mmol/L Carbon Dioxide 29 (21-32) mmol/L Anion Gap 6 (3-11) BUN 25 H (6-23) mg/dl Creatinine 1.62 H (0.6-1.4) mg/dl Est Cr Clr Drug Dosing Not Reportable Est GFR ( Amer) 43.0 ml/min Est GFR (Non-Af Amer) 37.1 ml/min BUN/Creatinine Ratio 15.4 (10-20) Glucose 193 H (70-99(Fasting)) mg/dl Lactate 1.8 (0.4-2.0) mmol/L Calcium 9.5 (8.5-10.1) mg/dl Total Bilirubin 0.8 (0.2-1.0) mg/dl AST 20 (13-39) U/L ALT 23 (7-52) U/L Alkaline Phosphatase 65 (34-104) U/L Troponin I High Sens 39.9 H D (0-20) pg/ml C-Reactive Protein 0.90 H (0-0.5) mg/dl Total Protein 6.9 (6.0-8.3) gm/dl Albumin 3.8 (3.4-5.0) gm/dl Globulin 3.1 (2.5-4.0) gm/dl Albumin/Globulin Ratio 1.2 (0.9-2) Lipase 47 (11-82) U/L Procalcitonin < 0.05 (0-0.5) ng/ml 05/11/22 Range/Units 14:33 WBC (4.8-10.8) K/ul RBC (4.63-6.08) M/uL Hgb (14.0-18.0) g/dl Hct (40.1-51.0) % MCV (80.0-100.0) fL MCH (25.0-34.0) pg MCHC (32.0-36.0) g/dL RDW Std Deviation (36.4-46.3) fL RDW Coeff of Mikal (11.5-14.5) % Plt Count (130-400) K/uL MPV (9.4-12.4) fL Immature Gran % (Auto) % Neut % (Auto) % Lymph % (Auto) % Winkler % (Auto) % Eos % (Auto) % Baso % (Auto) % Neut # (Auto) (1.4-6.5) K/uL Lymph # (Auto) (1.2-3.4) K/uL Winkler # (Auto) (0.24-0.82) K/uL Eos # (Auto) (0-0.50) K/uL Baso # (Auto) (0-0.2) K/uL Immature Gran # (Auto) (0.00-0.02) K/uL Platelet Estimate (Normal) ESR (0-20) mm/hr PT 10.5 INR 1.0 APTT 24.4 PTT Ratio 0.9 Sodium (136-145) mmol/L Potassium (3.5-5.1) mmol/L Chloride (98-107) mmol/L Carbon Dioxide (21-32) mmol/L Anion Gap (3-11) BUN (6-23) mg/dl Creatinine (0.6-1.4) mg/dl Est Cr Clr Drug Dosing Est GFR ( Amer) ml/min Est GFR (Non-Af Amer) ml/min BUN/Creatinine Ratio (10-20) Glucose (70-99(Fasting)) mg/dl Lactate (0.4-2.0) mmol/L Calcium (8.5-10.1) mg/dl Total Bilirubin (0.2-1.0) mg/dl AST (13-39) U/L ALT (7-52) U/L Alkaline Phosphatase (34-104) U/L Troponin I High Sens (0-20) pg/ml C-Reactive Protein (0-0.5) mg/dl Total Protein (6.0-8.3) gm/dl Albumin (3.4-5.0) gm/dl Globulin (2.5-4.0) gm/dl Albumin/Globulin Ratio (0.9-2) Lipase (11-82) U/L Procalcitonin (0-0.5) ng/ml Administered Medications Vancomycin HCl 2,500 mg/ (Sodium Chloride) 550 mls @ 180 mls/hr IV NOW STA Stop: 05/11/22 16:03 Last Admin: 05/11/22 14:00 Dose: 180 mls/hr Documented By: KELLY Discontinued Medications Sodium Chloride (Nss) 500 mls @ 999 mls/hr IV .Q31M STA Stop: 05/11/22 13:05 Last Infusion: 05/11/22 14:35 Dose: 0 mls/hr Documented By: Admin: 05/11/22 14:00 Dose: 999 mls/hr Documented By: KELLY Imaging Data Radiologist's Impression: Chest X-Ray 05/11/22 12:35 XR chest 1V portable HISTORY: 87 years-old Male Fever acute fever COMPARISON: Chest radiograph 05/10/2022 TECHNIQUE: Portable AP view of the chest FINDINGS: Cardiac silhouette is enlarged. Left subclavian pacer. No pneumothorax, pleural effusion, airspace consolidation or overt pulmonary edema. Mild subsegmental bibasilar atelectasis. Degenerative changes of the shoulders and spine. Right shoulder rotator cuff calcific tendinosis. IMPRESSION: No acute process. ACT 112: Negative or not required by law. The above report was generated using voice recognition software. It may contain grammatical, syntax or spelling errors. Electronically signed by: Derek Summers M.D. 05/11/2022 1:14 PM Discharge Plan Visit Data Chief Complaint: Abnormal Labs/Diagnostic Testing Stated Complaint: CALLED BACK FOR ABNORMAL TESTING RESULTS ED Provider: Eliseo Devi Discharge Problem: Bacteremia, Orthostatic hypotension, Elevated troponin I level, Thrombo cytopenia Patient Disposition: Being Evaluated by Hospitalist Forms Stand Alone Forms: My [facility] Prescriptions Prescriptions: No Action insulin glargine [Lantus Solostar U-100 Insulin] 100 unit/mL (3 mL) insulin pen 20 unit subcut QPM gabapentin 100 mg capsule 200 mg PO TID Metamucil 3.4 gram/5.4 gram Powder 0.5 tbsp PO DAILY atorvastatin 40 mg tablet 40 mg PO UD Rx Instructions: Takes on Mondays and Fridays at bedtime aspirin 81 mg Tablet,Delayed Release (Dr/Ec) 81 mg PO QAM acetaminophen [Tylenol Extra Strength] 500 mg Tablet 1,000 mg PO BID Rx Instructions: 0200 and 1400 Tradjenta 5 mg tablet 5 mg PO QAM donepezil 10 mg tablet 10 mg PO HS loratadine 10 mg Tablet 10 mg PO DAILY@1200 guaifenesin 1,200 mg Tablet Extended Release 12hr 1,200 mg PO BID PRN (Reason: Congestion) memantine [Namenda] 10 mg tablet 10 mg PO HS cholecalciferol (vitamin D3) [Vitamin D3] 125 mcg (5,000 unit) Tablet 125 mcg PO DAILY@1200 Referrals Referrals: Pratik Fragoso [Primary Care Provider] -
[2022-05-11 13:58] LABS: Basophils # (auto) 0.04 K/uL (0-0.2); Basophils % (auto) 0.4 %; Hematocrit (blood only) 45.1 % (40.1-51.0); Hemoglobin 15.1 g/dl (14.0-18.0); Immature Granulocytes # (auto) 0.04 K/uL (0.00-0.02); Immature Granulocytes % (auto) 0.4 %; Lymphocytes # (auto) 1.95 K/uL (1.2-3.4); Lymphocytes % (auto) 19.7 %; Mean Corpuscular Hemoglobin 33.7 pg (25.0-34.0); Mean Corpuscular Hgb Conc 33.5 g/dL (32.0-36.0); Mean Corpuscular Volume 100.7 fL (80.0-100.0); Mean Platelet Volume 11.2 fL (9.4-12.4); Monocytes # (auto) 0.77 K/uL (0.24-0.82); Monocytes % (auto) 7.8 %; Neutrophils % (auto) 68.7 %; Platelet Count 77 K/uL (130-400); Platelet Estimate Decreased (Normal); RDW Coefficient of Variation 12.3 % (11.5-14.5); RDW Standard Deviation 46.7 fL (36.4-46.3); Red Blood Count 4.48 M/uL (4.63-6.08)
[2022-05-11 13:59] LABS: Alanine Aminotransferase 23 U/L (7-52); Albumin Globulin Ratio 1.2 (0.9-2); Albumin Level 3.8 gm/dl (3.4-5.0); Alkaline Phosphatase 65 U/L (34-104); Anion Gap 6 (3-11); Aspartate Aminotransferase 20 U/L (13-39); BUN Creatinine Ratio 15.4 (10-20); Bilirubin,Total 0.8 mg/dl (0.2-1.0); Blood Urea Nitrogen 25 mg/dl (6-23); Calcium 9.5 mg/dl (8.5-10.1); Carbon Dioxide 29 mmol/L (21-32); Chloride 107 mmol/L (98-107); Est GFR (Non-African American) 37.1 ml/min; Globulin 3.1 gm/dl (2.5-4.0); Glucose 193 mg/dl (70-99(Fasting)); Lipase 47 U/L (11-82); Potassium 4.3 mmol/L (3.5-5.1); Sodium 142 mmol/L (136-145); Total Protein 6.9 gm/dl (6.0-8.3)
[2022-05-11 14:09] LABS: Troponin I High Sensitivity 39.9 pg/ml (0-20)
--- NOTE | 2022-05-11 14:39 | History & Physical Report ---
Date of Service May 11, 2022 Assessment & Plan (1) Bacteremia: Plan: Coagulase-negative staph bacteremia, staph epidermitis. 3/4 positive blood cultures, repeats pending -Unclear source. Patient does itch due to his CKD and had a bleeding excoriation of his right buttock which does not appear warm, erythematous, or with discharge at time of assessment but? Potential for bacteremic seeding and patient's daughter does report that he was bleeding after scratching intensely earlier in the week. No spinal or paraspinal tenderness to palpation. Skin survey otherwise negative. No Janeway lesions or Ley spots. PCR positive for staph, MecA resistance gene, epidermidis speciation No indwelling prosthetic device No known osteomyelitis, endocarditis, UTI. No UTI sx. No back spinal TTP. Patient is with indwelling cardiac pacemaker UA negative for bacteria 05/10 CRP 0.9, trended CXR: No acute findings CThead: No acute findings With known spondylitic change EKG: Atrial paced rhythm, right bundle Last echo available 03/07/2021: [facility] TTE. Normal LV motion and EF estimated 55%, LAD, LVH, pacing wire traversing the right heart, mitral and tricuspid valvular insufficiency. No leukocytosis Hemoglobin 15.1 Continue vancomycin renally dosed, received first dose in ER TTE pending. No Ley spots/Janeway lesions on exam. No murmur appreciated Surveillance blood culture pending A. fib With pacer in place, last seen 08/22/2021 per cardiology with interrogation showing no recurrence of A. fib Anticoagulation deferred due to maintenance of sinus rhythm and high risk of falls/bleeding in the setting of dementia and weakness EKG with atrially paced rhythm on admission, rate 70s CKD Creatinine baseline 1.72.1 to Admitting creatinine 1.62 Renally dose medications, BMP daily, avoid nephrotoxins DM2 On glargine 20 units every afternoon CALCULATION CLERK and Tradjenta, convert to basal bolus - Goal 110-140 - Basal 10u BIT CF 40 Ratio 15 Memory decline Continue donepezil, Namenda Hypertension Continue daily aspirin Hypertensive in ER, amlodipine given. Continue. Patient with history of orthostasis. DVT prophylaxis: SCDs, heparin given impaired renal function Diet: Heart healthy, DM2. N.p.o. midnight if surveillance cultures positive for consideration of MARINE if needed Disposition: Medical/surgical. No current arrhythmia or electrolyte disturbance. CODE STATUS: DNR/DNI (2) Cardiac pacemaker: (3) PAF (paroxysmal atrial fibrillation): (4) LVH (left ventricular hypertrophy): (5) Hyperlipidemia: (6) HTN (hypertension): (7) DM2 (diabetes mellitus, type 2): (8) History of CVA (cerebrovascular accident): (9) Bradyarrhythmia: (10) Pacemaker: History of Present Illness Primary Care Provider: Pratik Fragoso Jose is an 87-year-old male with a past medical history of sinus node dysfunction, paroxysmal A. fib, cardiac pacer Was at ER yesterday and dc ome. 2x episodes of orthostatic near syncope. First time standing from a chair, second time standing from bathroom chair. Hypotensive and tachy at arrival, got fluids and was improving but 2x cultures +staph epi On (4 days ago) caregiver noticed he was more somnolent before lunch. Has dementia and sleeps in recliner between meals. Caregiver had a hard time waking him up which is unusual for Eduard. His son came to visit and Eduard seemed to perk back up to normal. NO fevers/chills/sweats. Daughter was with Eduard on Thursday. When trying to get out of the shower yesterday was slumped and tired more than usual. Seemed different and more weak, and not like presyncope and new for Eduard. Came to ER and had a general evaluation which was nonfocal, d/c home with ?orthostasis and was d/c home but BCx3 positive for Staph today. Eduard seems back to normal today per daughter, no further fatigue episodes. No fevers, chills, swetas. No chest pain, no chest pressure. RoS limited by dementia. +incontinence and diarrhea yesterday and today. Medical History: Reviewed Medications: Reviewed Surgical History: Reviewed Allergies: Reviewed Social History: Reviewed, no recent tob/etoh Code Status: DNRDNI Allergies Allergy/AdvReac Type Severity Reaction Status Date / Time No Known Allergies Allergy Unverified 01/22/22 15:52 Home Medications Medication Instructions Recorded Confirmed Type acetaminophen 500 mg tablet 1,000 mg PO BID 12/19/18 05/10/22 History (Tylenol Extra Strength) aspirin 81 mg tablet,delayed 81 mg PO QAM 12/19/18 05/10/22 History release atorvastatin 40 mg tablet 40 mg PO UD 12/19/18 05/10/22 History linagliptin 5 mg tablet (Tradjenta) 5 mg PO QAM 12/19/18 05/10/22 History psyllium husk 3.4 gram/5.4 gram 0.5 tbsp PO DAILY 07/02/19 05/10/22 History oral powder (Metamucil) donepezil 10 mg tablet 10 mg PO HS 10/10/19 05/10/22 History guaifenesin 1,200 mg tablet, 1,200 mg PO BID PRN Congestion 10/10/19 05/10/22 History extended release 12 hr loratadine 10 mg tablet 10 mg PO DAILY@1200 10/10/19 05/10/22 History cholecalciferol (vitamin D3) 125 125 mcg PO DAILY@1200 05/05/21 05/10/22 History mcg (5,000 unit) tablet (Vitamin D3) memantine 10 mg tablet (Namenda) 10 mg PO HS 05/05/21 05/10/22 History gabapentin 100 mg capsule 200 mg PO TID 01/22/22 05/10/22 History insulin glargine 100 unit/mL (3 20 unit subcut QPM 01/22/22 05/10/22 History mL) subcutaneous pen (Lantus Solostar U-100 Insulin) Past Med/Surg History Medical History (Updated 05/11/22 @ 15:01 by Trever Kendall MD) Bradyarrhythmia CVA (cerebral vascular accident) Dementia Depression DM2 (diabetes mellitus, type 2) DVT prophylaxis HTN (hypertension) Pacemaker Family History Other Family history non-contributory Social History Smoking Status: Former smoker Tobacco Type: Cigarettes Second Hand Exposure: No; Hx Alcohol Use: No Hx Substance Use: No Preferred Language: Frisian Communication Ability: Effective Sandfill Operator Required: No Beliefs That Will Affect Care: None marital status: / Current Living Situation: Alone Current Living Situation Comment: patient has caregivers current occupational status: retired Feels Safe at Home: Yes Assistive Devices: Walker Review of Systems Review of Systems: Limited by cognitive status/dementia, 10 point ROS negative Physical Exam Physical Exam: General: Oriented to name only NAD. Cooperative. HEENT: Atraumatic, normocephalic. Vision/hearing grossly intact Skin: Trace excoriations at right buttock with 2 small superficial scratch/lesions. No warmth/erythema/discharge/purulence. No other infected appearing lesions of the skin. No Janeway lesions or Ley spots appreciated. Pulm: CTAB A&P. -wheezes, -rales, -rhonchi. Symmetrical chest rise. No increase in work of breathing. No respiratory distress. Cardiac: RRR, -mrg. Radial pulses intact and symmetrical. Abdominal: Nontender, nondistended, soft. BS present. Results & Data Results & Data ([facility]) Vital Signs (Past 12 Hours) Vital Signs Temp Pulse Pulse Resp BP BP Pulse Ox 05/11/22 14:00 73 20 182/112 H 96 05/11/22 12:30 36.8 C 74 18 138/92 94 O2 Del Method 05/11/22 14:00 Room Air 05/11/22 12:30 Room Air PG Care Time/CCT Total # of Minutes Spent Total Time Spent with Patient: Total time spent is greater than 50% in coordination of care (as documented) at patient's floor/unit and/or counseling patient: Coding Level of Care Code 77582 Initial Inpt Care Lvl 2 Diagnoses Bacteremia R78.81 Cardiac pacemaker Z95.0 PAF (paroxysmal atrial fibrillation) I48.0 LVH (left ventricular hypertrophy) I51.7 Hyperlipidemia E78.5 HTN (hypertension) I10 Hypertension type: primary hypertension DM2 (diabetes mellitus, type 2) E11.65; Z79.4 Diabetes mellitus half-way insulin use: with half-way use Diabetes mellitus complication status: with hyperglycemia History of CVA (cerebrovascular accident) Z86.73 Bradyarrhythmia I49.8 Pacemaker Z95.0 (1) HTN (hypertension) Hypertension type: primary hypertension Qualified Code(s): I10 - Essential (primary) hypertension (2) DM2 (diabetes mellitus, type 2) 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
[2022-05-11 15:01] LABS: Partial Thromboplastin Ratio 0.9; Partial Thromboplastin Time 24.4 Seconds (21.0-31.0); Prothrombin Time 10.5 Seconds (9.0-12.0)
[2022-05-11] MEDS ORDERED: amLODIPine BESYLATE 5 MG TAB PO ONE (15:01)
[2022-05-11] MEDS ORDERED: VANCOMYCIN CONSULT ACTIVE PRN (21:01)
[2022-05-11] MEDS ORDERED: ACETAMINOPHEN 325 MG TAB PO PRN (21:01)
[2022-05-11] MEDS ORDERED: CARBOHYDRATES FOR HYPOGLYCEMIA PO PRN (21:11)
[2022-05-11] MEDS ORDERED: GLUCAGON FOR INJ 1 MG VIAL SQ PRN (21:11)
[2022-05-11] MEDS ORDERED: DEXTROSE 50% 50 ML SYRINGE IV PRN (21:11)
[2022-05-11] MEDS ORDERED: GLUCOSE 40% GEL 15 GM TUBE PO PRN (21:11)
[2022-05-11] MEDS ORDERED: GLUCOSE 10 TAB/TUBE PO PRN (21:11)
[2022-05-11] MEDS: HEPARIN SOD 5,000 UNIT/0.5 ML VIAL SQ SCH (21:42)
[2022-05-11] MEDS: MEMANTINE HCL 10 MG TAB PO SCH (21:43)
[2022-05-11] MEDS: DONEPEZIL HCL 10 MG TAB PO SCH (21:43)
[2022-05-11] MEDS: INSULIN ASPART PER UNIT SC SCH (22:21)
[2022-05-11] MEDS: LANTUS PER UNIT CHARGE SQ SCH (22:22)
[2022-05-12] MEDS: INSULIN ASPART PER UNIT SC SCH ×3 (05:50→17:41)
[2022-05-12 07:52] LABS: Hematocrit (blood only) 40.8 % (40.1-51.0); Mean Corpuscular Hemoglobin 33.5 pg (25.0-34.0); Mean Corpuscular Hgb Conc 34.3 g/dL (32.0-36.0); Mean Corpuscular Volume 97.6 fL (80.0-100.0); Mean Platelet Volume 11.3 fL (9.4-12.4); Platelet Count 85 K/uL (130-400); RDW Coefficient of Variation 12.1 % (11.5-14.5); RDW Standard Deviation 43.5 fL (36.4-46.3); Red Blood Count 4.18 M/uL (4.63-6.08); White Blood Count 7.34 K/ul (4.8-10.8)
[2022-05-12 07:59] LABS: Basophils # (auto) 0.03 K/uL (0-0.2); Basophils % (auto) 0.4 %; Eosinophils # (auto) 0.24 K/uL (0-0.50); Eosinophils % (auto) 3.3 %; Immature Granulocytes # (auto) 0.03 K/uL (0.00-0.02); Immature Granulocytes % (auto) 0.4 %; Lymphocytes # (auto) 2.02 K/uL (1.2-3.4); Lymphocytes % (auto) 27.5 %; Monocytes # (auto) 0.68 K/uL (0.24-0.82); Monocytes % (auto) 9.3 %; Neutrophils # (auto) 4.34 K/uL (1.4-6.5); Neutrophils % (auto) 59.1 %
[2022-05-12 08:04] LABS: BUN Creatinine Ratio 17.5 (10-20); C Reactive Protein 0.61 mg/dl (0-0.5); Creatinine Clr Calc Pharmacy 43.3 ml/min; Est GFR (Non-African American) 43.1 ml/min
[2022-05-12] MEDS ORDERED: amLODIPine BESYLATE 5 MG TAB PO SCH (09:00)
--- NOTE | 2022-05-12 09:12 | Pharmacy Report ---
Pharmacy Vanc AUC Short Note - Date of Service May 12, 2022 - Assessment & Plan Assessment 87 year old M receiving vancomycin for treatment of bacteremia with currently unclear source. Patient originally presented to ED on 05/10, cultures obtained and patient was ultimately discharged home. Blood cultures x 2 subsequently came back positive for gram-positive cocci clusters w/ [employer] results showing Methicillin resistant Staphylococcus epidermidis. Patient notified to come back into hospital for IV antibiotic therapy. Day # 2 of antimicrobial therapy. Plan Vancomycin * AUC/SU is the preferred PK/PD target for vancomycin * AUC guided dosing is effective and associated with decreased risk of nephrotoxicity compared to traditional trough targets * Random level of 15.4 mcg/mL ordered given unknown renal function * Maintenance dose of 1250 mg IV q24h predicted to achieve target AUC/SU of 400-600 * Random level ordered for: 05/14/22 Pharmacy will continue to follow and will adjust dose/frequency as necessary. Thank you.
--- NOTE | 2022-05-12 09:22 | Electrocardiogram Report ---
Test Reason : Blood Pressure : / mmHG Vent. Rate : 072 BPM Atrial Rate : 072 BPM P-R Int : 236 ms QRS Dur : 126 ms QT Int : 420 ms P-R-T Axes : 000 -59 -21 degrees QTc Int : 459 ms Atrial-paced rhythm with prolonged AV conduction Left axis deviation Right bundle branch block possible Inferior infarct (cited on or before 11-MAY-2022) Abnormal ECG When compared with ECG of 10-MAY-2022 11:57, No significant change was found Confirmed by Nicanor Lino ([id number]) on 05/12/2022 9:22:32 AM Referred By: Eliseo Devi Confirmed By:Jerod Lino
[2022-05-12] MEDS: ASPIRIN 81 MG ECTAB PO SCH (09:47)
[2022-05-12] MEDS: GABAPENTIN 100 MG CAP PO SCH ×3 (09:47→17:42)
[2022-05-12] MEDS: HEPARIN SOD 5,000 UNIT/0.5 ML VIAL SQ SCH ×2 (09:48→20:03)
[2022-05-12] MEDS: LANTUS PER UNIT CHARGE SQ SCH ×2 (10:16→20:09)
[2022-05-12] MEDS: VANCOMYCIN HCL 1,250 MG in SODIUM CHLORIDE 0.9% 250 ML IV SCH (11:36)
[2022-05-12] MEDS ORDERED: VANCOMYCIN HCL 1,250 MG in SODIUM CHLORIDE 0.9% 250 ML IV SCH (12:00)
--- NOTE | 2022-05-12 13:27 | XCELERA ---
[id number]
--- NOTE | 2022-05-12 16:18 | Hospitalist Progress Note ---
Date of Service May 12, 2022 Assessment & Plan (1) Bacteremia: Plan: Coagulase-negative staph bacteremia, staph epidermitis (methicillin resistant) 3/4 positive blood cultures, repeats pending - Unclear source. Patient does itch due to his CKD and had a bleeding excoriation of his right buttock which does not appear warm, erythematous, or with discharge at time of assessment but? Potential for bacteremic seeding and patient's daughter does report that he was bleeding after scratching intensely earlier in the week. No spinal or paraspinal tenderness to palpation. Skin survey otherwise negative. No Janeway lesions or Ley spots. PCR positive for staph, MecA resistance gene, epidermidis speciation No indwelling prosthetic device No known osteomyelitis, endocarditis, UTI. No UTI sx. No back spinal TTP. Patient is with indwelling cardiac pacemaker UA negative with more than 3 types of bacteria from 05/10, nothing specific isolated CRP 0.9, trended CXR: No acute findings CThead: No acute findings With known spondylitic change EKG: Atrial paced rhythm, right bundle Last echo available 03/07/2021: [facility]. Normal LV motion and EF estimated 55%, LAD, LVH, pacing wire traversing the right heart, mitral and tricuspid valvular insufficiency. No leukocytosis or fever Hemoglobin 15.1 Continue vancomycin renally dosed, received first dose in ER TTE pending. No Ley spots/Janeway lesions on exam. No murmur appreciated- results of echo were technically limited, LV systolic fxn normal, LA mildly dilated, aortic valve sclerosis w/o significant stenosis. RVSP normal. No evidence of endocarditis but image quality was insufficient for definitive evaluation. Surveillance blood culture pending - Will require ID input, consult [facility], I personally contacted on 05/[address] Marycruz Hui who will do formal consult on 05/13 - Concern will be for PPM and if the staph has seeded this device. Will need a MARINE to thoroughly rule this in or out. If any concern for seeding, will require transfer to facility with CT surgery (2) PAF (paroxysmal atrial fibrillation): Plan: With pacer in place, last seen 08/22/2021 per cardiology with interrogation showing no recurrence of A. fib Anticoagulation deferred due to maintenance of sinus rhythm and high risk of falls/bleeding in the setting of dementia and weakness EKG with atrially paced rhythm on admission, rate 70s (3) Hyperlipidemia: Plan: - Continue Atorvastatin (4) HTN (hypertension): Plan: Continue daily aspirin Hypertensive in ER, amlodipine given. Continue. Patient with history of orthostasis. 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 Pharmacy is managing dosing which needs to be followed closely given his CKD. Will need to obtain MARINE. Will discuss with Dr. Lino, if this can be facilitated tomorrow, will make NPO after MN. Plan has been d/w Dr. Peace, further orders as warranted. Admission and Anticipated Discharge Date Admission Date: May 11, 2022 Subjective Patient seen on daily rounds this morning. He is resting in bed, pleasantly confused. No complaints but accurate ROS is limited d/t his dementia. Review of Systems Review of Systems: Accurate ROS limited and frankly unobtainable due to patient's dementia Physical Exam Physical Exam: GENERAL: 87 yo Well-developed, well-nourished elderly WM. NAD. LUNGS: Clear to auscultation bilaterally. No W/R/R. CARDIOVASCULAR: Regular rate and rhythm. ABDOMEN: Soft, non-tender and non-distended. BS normoactive x 4 quad. EXTREMITIES: No edema. Non-tender. Peripheral pulses +2/4. NEUROLOGIC: A&O x1 PSYCHIATRIC: Cooperative. Appropriate mood and affect. SKIN: Warm, dry, intact. No rashes or lesions. Results & Data Results & Data ([facility]) Vital Signs (Past 12 Hours) Vital Signs Temp Pulse Resp BP Pulse Ox O2 Del Method 05/12/22 14:56 36.7 C 69 16 143/96 H 94 Room Air 05/12/22 09:30 Room Air 05/12/22 08:17 36.7 C 73 18 166/87 H 94 Room Air Laboratory Results 05/12/22 07:01 05/12/22 07:01 PG Care Time/CCT Total # of Minutes Spent Total Time Spent with Patient: Total time spent is greater than 50% in coordination of care (as documented) at patient's floor/unit and/or counseling patient: Coding Level of Care Code 98172 Subseq Hosp Care Lvl 2 Diagnoses Bacteremia R78.81 PAF (paroxysmal atrial fibrillation) I48.0 Hyperlipidemia E78.5 HTN (hypertension) I10 Hypertension type: primary hypertension DM2 (diabetes mellitus, type 2) E11.65; Z79.4 Diabetes mellitus complication status: with hyperglycemia Diabetes mellitus correction insulin use: with supervisor nurse use CKD (chronic kidney disease) N18.9 Dementia F03.90 Dementia behavioral disturbance: without behavioral disturbance Dementia type: unspecified type (1) DM2 (diabetes mellitus, type 2) Diabetes mellitus complication status: with hyperglycemia Diabetes mellitus correction insulin use: with supervisor nurse use Qualified Code(s): E11.65 - Type 2 diabetes mellitus with hyperglycemia; 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
[2022-05-12] MEDS: MEMANTINE HCL 10 MG TAB PO SCH (20:03)
[2022-05-12] MEDS: DONEPEZIL HCL 10 MG TAB PO SCH (20:03)
[2022-05-12] MEDS: ATORVASTATIN 40 MG TAB PO SCH (20:03)
[2022-05-13] MEDS: INSULIN ASPART PER UNIT SC SCH ×5 (01:03→21:34)
[2022-05-13 06:38] LABS: Creatinine Clr Calc Pharmacy 38.7 ml/min; Est GFR (African American) 43.6 ml/min; Est GFR (Non-African American) 37.6 ml/min
[2022-05-13] MEDS: GABAPENTIN 100 MG CAP PO SCH ×3 (09:09→17:54)
[2022-05-13] MEDS: HEPARIN SOD 5,000 UNIT/0.5 ML VIAL SQ SCH (09:09)
[2022-05-13] MEDS: ASPIRIN 81 MG ECTAB PO SCH (09:09)
[2022-05-13] MEDS: LANTUS PER UNIT CHARGE SQ SCH ×2 (09:10→21:33)
[2022-05-13] MEDS: VANCOMYCIN HCL 1,250 MG in SODIUM CHLORIDE 0.9% 250 ML IV SCH (09:23)
[2022-05-13] MEDS ORDERED: MIDAZOLAM HCL 1 MG/ML 2ML VIAL ONE (09:41)
[2022-05-13] MEDS ORDERED: fentaNYL citrate 100 MCG/2 ML VIAL ONE (09:41)
--- NOTE | 2022-05-13 10:06 | Infectious Disease Consult ---
Date of Consultation May 13, 2022 Assessment & Plan (1) Bacteremia: Plan #Staph epidermidis bacteremia- MRSE by PCR -presented with generalized weakness/decreased alertness without focal complaints -often unclear portal of entry in absence of central line/port -MRSE present in 2 of 2 sets on 05/10 -05/11 Bcxs with [facility] in 1 set to date -MRSE in Bcxs concerning in patient with PPM -TTE limited -pt on vancomycin- pharmacy following for dosing/levels #elevated cr- stable, reportedly at baseline Recommend: Would obtain MARINE for evaluation of IE, involvement of pacemaker. If positive, recommend CTS evaluation. Repeat Blood cultures ordered today. Would continue vancomycin with pharmacy following for dosing/levels and close monitoring of renal function. Discussed with primary team. Consultation Information This patient recommendation is based on a telemedicine consult request which was completed asynchronously through chart review and information provided by the primary physician. The patient was not seen or examined today. The evaluation is consultative in nature and all patient care and treatment decisions can either be accepted or rejected by the patient's primary hospital-based treating physician using their own independent medical judgment for their patient. [employer] contact information: Please call [facility] Call Center . (Phone Number For Physician Use Only) Time Spent Reviewing Chart: 31+ minutes History of Present Illness Attending Physician: Rashel Peace MD History of Present Illness ID consult requested for bacteremia in this 87-year-old male, past medical history of diabetes, type II, CVA, dementia, depression, hypertension, atrial fibrillation, status post pacemaker, CKD, who was called to return the hospital on 05/11/2022 when his blood cultures from 05/10/2022 became positive for staph epidermidis. His family member reported some episodes of diarrhea recently but no vomiting, fever, back pain, or rash- just some mild erythema of patient's right great toe and excoriations from itching. In the ED, temperature was 36.8, heart rate 74, respiration 18, blood pressure 138/92, O2 saturation 94% on room air. Admission labs were significant for WBC 9.9, 68.7% neutrophils, hemoglobin 15.1, platelets 77, creatinine 1.62, procalcitonin less than 0.05. Portable chest x-ray showed no acute process. 05/12/22 TTE was technically limited and was insufficient for definitive evaluation of endocarditis. Patient was noted to have faint erythema of his right great toe but no paronychia was appreciated on exam. He was also noted to have bleeding excoriation of his right buttock which did not appear to be cellulitis. Patient reportedly has chronic itching and can bleed after scratching intensely. Patient had originally presented to the ED on 05/10/2022 after a fall. He reported that he had been in the bathtub when he felt very weak in his legs and required help getting out of the bathtub. 911 was called. Patient was noted to be tachycardic and hypotensive. He denied any complaints including chest pain, shortness of breath, neck pain, headache, back pain. He reported some cloudy urine. Patient's daughter reported the patient has been having episodes of weakness since the prior along with decreased wakefulness. He was treated with IV fluids in the ED with improvement in his tachycardia and hypotension. WBC was 10.65, 69.9% neutrophils, 1% bands, platelets 94, creatinine 1.81. UA was negative for pyuria. Portable chest x-ray showed cardiomegaly and cardiac pacemaker without evidence of congestive failure, consolidation, or large pleural effusion. CT scan of the brain without contrast was negative. Patient is currently on vancomycin 1250 mg IV every 24. Pharmacy is following for dosing/levels. 05/10 blood cultures with coagulase-negative staph not lugdunensis in 2 out of 2 sets. Cultures were positive for staph epidermidis by PCR and methicillin resistance was detected. / blood cultures with gram-positive cocci in clusters in 1 set so far. Patient has remained afebrile and hemodynamically stable. WBC remains nl and creatinine stable at 1.6 Allergies Allergy/AdvReac Type Severity Reaction Status Date / Time No Known Allergies Allergy Unverified 05/11/22 16:56 Home Medications Medication Instructions Recorded Confirmed Type acetaminophen 500 mg tablet 1,000 mg PO BID 12/19/18 05/11/22 History (Tylenol Extra Strength) aspirin 81 mg tablet,delayed 81 mg PO QAM 12/19/18 05/11/22 History release atorvastatin 40 mg tablet 40 mg PO 2XWK 12/19/18 05/11/22 History linagliptin 5 mg tablet (Tradjenta) 5 mg PO QAM 12/19/18 05/11/22 History psyllium husk 3.4 gram/5.4 gram 0.5 tbsp PO DAILY 07/02/19 05/11/22 History oral powder (Metamucil) donepezil 10 mg tablet 10 mg PO HS 10/10/19 05/11/22 History loratadine 10 mg tablet 10 mg PO DAILY@1200 10/10/19 05/11/22 History cholecalciferol (vitamin D3) 125 125 mcg PO DAILY@1200 05/05/21 05/11/22 History mcg (5,000 unit) tablet (Vitamin D3) memantine 10 mg tablet (Namenda) 10 mg PO HS 05/05/21 05/11/22 History gabapentin 100 mg capsule 200 mg PO BID 01/22/22 05/11/22 History insulin glargine 100 unit/mL (3 20 unit subcut QAM 01/22/22 05/11/22 History mL) subcutaneous pen (Lantus Solostar U-100 Insulin) gabapentin 100 mg capsule 100 mg PO HS 05/11/22 05/11/22 History Patient History Medical History (Updated 05/12/22 @ 16:26 by Allyssa Harvey PA-C) Bradyarrhythmia CVA (cerebral vascular accident) Dementia Depression DM2 (diabetes mellitus, type 2) DVT prophylaxis HTN (hypertension) Pacemaker Family History Other Family history non-contributory Social History Smoking Status: Former smoker Tobacco Type: Cigarettes Second Hand Exposure: No; Do You Dip or Chew Tobacco: No; Tobacco Cessation Education Requested by Patient: No Hx Alcohol Use: No Hx Substance Use: No Preferred Language: Sudanese Communication Ability: Impaired 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 Required: No Beliefs That Will Affect Care: None marital status: / Current Living Situation: Alone Current Living Situation Comment: patient has caregivers current occupational status: retired How many Children do You have: 2 Other Information That Helps Us Care for You: No Feels Safe at Home: Yes Safety Concerns: Feels Safe At This Time Assistive Devices: Hospital Bed, Lift Chair, Walker and Wheelchair Assistive Devices Comment: shower bench Results & Data ([facility]) Vital Signs (Past 12 Hours) Vital Signs Temp Pulse Resp BP Pulse Ox O2 Del Method 05/13/22 09:45 70 16 137/97 98 Room Air 05/13/22 08:20 36.6 C 70 16 124/77 94 Room Air 05/12/22 22:42 36.7 C 89 20 131/82 93 Room Air Laboratory Results Laboratory Results - last 24 hr 05/12/22 05/12/22 05/12/22 12:22 17:06 20:02 Creatinine Est Cr Clr Drug Dosing Est GFR ( Amer) Est GFR (Non-Af Amer) POC Glucose 127 H 159 H 175 H 05/13/22 05/13/22 05/13/22 00:56 05:42 05:47 Creatinine 1.60 H Est Cr Clr Drug Dosing 38.7 Est GFR ( Amer) 43.6 Est GFR (Non-Af Amer) 37.6 POC Glucose 177 H 161 H Diagnostic Findings Laboratory Results WBC 7.34 K/ul (4.8-10.8) 05/12/22 07:01 RBC 4.18 M/uL (4.63-6.08) L 05/12/22 07:01 Hgb 14.0 g/dl (14.0-18.0) 05/12/22 07:01 Hct 40.8 % (40.1-51.0) 05/12/22 07:01 MCV 97.6 fL (80.0-100.0) 05/12/22 07:01 MCH 33.5 pg (25.0-34.0) 05/12/22 07:01 MCHC 34.3 g/dL (32.0-36.0) 05/12/22 07:01 RDW Std Deviation 43.5 fL (36.4-46.3) 05/12/22 07:01 RDW Coeff of Mikal 12.1 % (11.5-14.5) 05/12/22 07:01 Plt Count 85 K/uL (130-400) L 05/12/22 07:01 MPV 11.3 fL (9.4-12.4) 05/12/22 07:01 Immature Gran % (Auto) 0.4 % 05/12/22 07:01 Neut % (Auto) 59.1 % 05/12/22 07:01 Lymph % (Auto) 27.5 % 05/12/22 07:01 [place] % (Auto) 9.3 % 05/12/22 07:01 Eos % (Auto) 3.3 % 05/12/22 07:01 Baso % (Auto) 0.4 % 05/12/22 07:01 Neut # (Auto) 4.34 K/uL (1.4-6.5) 05/12/22 07:01 Lymph # (Auto) 2.02 K/uL (1.2-3.4) 05/12/22 07:01 [place] # (Auto) 0.68 K/uL (0.24-0.82) 05/12/22 07:01 Eos # (Auto) 0.24 K/uL (0-0.50) 05/12/22 07:01 Baso # (Auto) 0.03 K/uL (0-0.2) 05/12/22 07:01 Immature Gran # (Auto) 0.03 K/uL (0.00-0.02) H 05/12/22 07:01 Platelet Estimate Decreased (Normal) L 05/11/22 13:22 ESR 24 mm/hr (0-20) H 05/11/22 13:22 PT 10.5 Seconds (9.0-12.0) 05/11/22 14:33 INR 1.0 (0.9-1.1) 05/11/22 14:33 APTT 24.4 Seconds (21.0-31.0) 05/11/22 14:33 PTT Ratio 0.9 05/11/22 14:33 Sodium 142 mmol/L (136-145) 05/12/22 07:01 Potassium 4.0 mmol/L (3.5-5.1) 05/12/22 07:01 Chloride 110 mmol/L (98-107) H 05/12/22 07:01 Carbon Dioxide 28 mmol/L (21-32) 05/12/22 07:01 Anion Gap 4 (3-11) 05/12/22 07:01 BUN 25 mg/dl (6-23) H 05/12/22 07:01 Creatinine 1.60 mg/dl (0.6-1.4) H 05/13/22 05:42 Est Cr Clr Drug Dosing 38.7 ml/min 05/13/22 05:42 Est GFR ( Amer) 43.6 ml/min 05/13/22 05:42 Est GFR (Non-Af Amer) 37.6 ml/min 05/13/22 05:42 BUN/Creatinine Ratio 17.5 (10-20) 05/12/22 07:01 Glucose 165 mg/dl (70-99(Fasting)) H 05/12/22 07:01 POC Glucose 161 mg/dl (70-99) H 05/13/22 05:47 Lactate 1.8 mmol/L (0.4-2.0) 05/11/22 13:22 Calcium 9.0 mg/dl (8.5-10.1) 05/12/22 07:01 Total Bilirubin 0.8 mg/dl (0.2-1.0) 05/11/22 13:22 AST 20 U/L (13-39) 05/11/22 13:22 ALT 23 U/L (7-52) 05/11/22 13:22 Alkaline Phosphatase 65 U/L (34-104) 05/11/22 13:22 Troponin I High Sens 39.9 pg/ml (0-20) H D 05/11/22 13:22 C-Reactive Protein 0.61 mg/dl (0-0.5) H 05/12/22 07:01 Total Protein 6.9 gm/dl (6.0-8.3) 05/11/22 13:22 Albumin 3.8 gm/dl (3.4-5.0) 05/11/22 13:22 Globulin 3.1 gm/dl (2.5-4.0) 05/11/22 13:22 Albumin/Globulin Ratio 1.2 (0.9-2) 05/11/22 13:22 Lipase 47 U/L (11-82) 05/11/22 13:22 Procalcitonin < 0.05 ng/ml (0-0.5) 05/12/22 07:01 Random Vancomycin 15.4 mcg/ml (10-20) 05/12/22 07:01 SARS-CoV-2, RNA, NAAT NEGATIVE (NEGATIVE) 05/11/22 15:24 Impressions Chest X-Ray 05/11/22 12:35 XR chest 1V portable HISTORY: 87 years-old Male Fever acute fever COMPARISON: Chest radiograph 05/10/2022 TECHNIQUE: Portable AP view of the chest FINDINGS: Cardiac silhouette is enlarged. Left subclavian pacer. No pneumothorax, pleural effusion, airspace consolidation or overt pulmonary edema. Mild subsegmental bibasilar atelectasis. Degenerative changes of the shoulders and spine. Right shoulder rotator cuff calcific tendinosis. IMPRESSION: No acute process. ACT 112: Negative or not required by law. The above report was generated using voice recognition software. It may contain grammatical, syntax or spelling errors. Electronically signed by: Derek Summers M.D. 05/11/2022 1:14 PM
[2022-05-13] MEDS ORDERED: BENZOCAINE/TETRACAIN/BUTAM 50 APPLN/5 GM CAN EXT ONE (10:08)
--- NOTE | 2022-05-13 10:30 | Post Anesthesia Assessment ---
Date of Service May 13, 2022 Post Sedation Assessment Vital Signs Temp Pulse Pulse Resp BP Pulse Ox O2 Del Method 05/13/22 10:27 75 14 146/78 H 99 Nasal Cannula 05/13/22 10:22 71 16 148/91 H 99 Nasal Cannula 05/13/22 09:00 Room Air 05/13/22 10:17 70 16 147/101 H 100 Nasal Cannula 05/13/22 09:45 70 16 137/97 98 Room Air 05/13/22 08:20 36.6 C 70 16 124/77 94 Room Air 05/12/22 22:42 36.7 C 89 20 131/82 93 Room Air 05/12/22 14:56 36.7 C 69 16 143/96 H 94 Room Air O2 Flow Rate 05/13/22 10:27 4 05/13/22 10:22 4 05/13/22 09:00 05/13/22 10:17 4 05/13/22 09:45 05/13/22 08:20 05/12/22 22:42 05/12/22 14:56 Recovery Score Activity: Moves 4 extremities Respiration: Deep Breath/Cough Circulation: +/-20% PreAnes Value Consciousness: Fully Awake Oxygen Saturation: O2 needed for >90% Post Anesthesia Score: 8 Discharge Sedation Level of Care: Fast Track Phase II Post Sedation Plan On clinical assessment, the patient appears to have tolerated the sedation without complications. Patient is recovering as anticipated. Patient will continue to be monitored by nursing and may be discharged when sedation discharge criteria are met per below protocol. Upon Completions of procedure up to 15 minutes continue every 5 minute vital signs and the P.A.R. score; then discharge to a Phase I or Fast Track to Phase II per the following guidelines: * Discharge Patient to appropriate Phase II area if PAR is 8 or greater or return to pre- procedure baseline. The post - procedure orders will be as directed. * If PAR score is less than 8 or not return to pre-procedure baseline then patient will follow Phase I monitoring till PAR is reached for Phase II. The Phase I may be done in procedure room or may call to secure a Phase I area. * If naloxone or flumazenil are used for reversal, hold in Phase I for continued monitoring from when last reversal dose was given for a minimum of 60 minutes or longer pending the nurse and/or physician discretion of patient condition before discharge to Phase II. Please call the Sedation Physician to re-evaluate and complete post-note for discharge to Phase II area. Do NOT discharge from procedure sedation or Phase 1 until post- sedation evaluation note is complete by procedure /sedation MD Sedation Discharge Instructions to be given to the patient at discharge to home.
--- NOTE | 2022-05-13 11:01 | XCELERA ---
[id number]
--- NOTE | 2022-05-13 16:13 | Hospitalist Progress Note ---
Date of Service May 13, 2022 Assessment & Plan (1) Bacteremia: Plan: Coagulase-negative staph bacteremia, staph epidermitis (methicillin resistant) 3/4 positive blood cultures, repeats pending - Unclear source. Patient does itch due to his CKD and had a bleeding excoriation of his right buttock which does not appear warm, erythematous, or with discharge at time of assessment but? Potential for bacteremic seeding and patient's daughter does report that he was bleeding after scratching intensely earlier in the week. No spinal or paraspinal tenderness to palpation. Skin survey otherwise negative. No Janeway lesions or Ley spots. PCR positive for staph, MecA resistance gene, epidermidis speciation No indwelling prosthetic device No known osteomyelitis, endocarditis, UTI. No UTI sx. No back spinal TTP. Patient is with indwelling cardiac pacemaker UA negative with more than 3 types of bacteria from 05/10, nothing specific isolated CRP 0.9-->0.6 Continue vancomycin renally dosed, received first dose in ER TTE-technically limited. MARINE performed 05/[address] Lino, no evidence of endocarditis - Consulted [facility], spoke with Dr. Marycruz Hui--advised MARINE (completed) and continue vanco. will continue to make additional recommendations based on clinical course - Repeat blood cultures collected 05/13, if negative can place midline, pt will need minimum of 2 weeks total of IV Vanco (unless otherwise outlined by ID) (2) PAF (paroxysmal atrial fibrillation): Plan: With pacer in place, last seen 08/22/2021 per cardiology with interrogation showing no recurrence of A. fib Anticoagulation deferred due to maintenance of sinus rhythm and high risk of falls/bleeding in the setting of dementia and weakness EKG with atrially paced rhythm on admission, rate 70s (3) Hyperlipidemia: Plan: - Continue Atorvastatin (4) HTN (hypertension): Plan: Continue daily aspirin Hypertensive in ER, amlodipine given. Continue. Patient with history of orthostasis. (5) DM2 (diabetes mellitus, type 2): Plan: On glargine 20 units every afternoon FAN MAIL [employer]OR and Tradjenta, convert to basal bolus - Goal 110-140 - Split Basal 10u BID CF 40 Ratio 15 (6) CKD (chronic kidney disease): Plan: Creatinine baseline 1.72.1 to Admitting creatinine 1.62 Renally dose medications, BMP daily, avoid nephrotoxins - Renal fxn within baseline (7) Dementia: Plan: - Continue Aricept and Namenda Plan As outlined above. Plan has been d/w Dr. Peace, further orders as warranted. Admission and Anticipated Discharge Date Admission Date: May 11, 2022 Subjective Patient seen on daily rounds this afternoon following his MARINE with Dr. Lino. He is resting in bed, pleasantly confused. No complaints but accurate ROS continues to be limited d/t his dementia. Per family, this is his baseline. Review of Systems Review of Systems: Accurate ROS limited and frankly unobtainable due to patient's dementia Physical Exam Physical Exam: GENERAL: 87 yo Well-developed, well-nourished elderly WM. NAD. LUNGS: Clear to auscultation bilaterally. No W/R/R. CARDIOVASCULAR: Regular rate and rhythm. ABDOMEN: Soft, non-tender and non-distended. BS normoactive x 4 quad. EXTREMITIES: No edema. Non-tender. Peripheral pulses +2/4. NEUROLOGIC: A&O x1 PSYCHIATRIC: Cooperative. Appropriate mood and affect. SKIN: Warm, dry, intact. No rashes or lesions. Results & Data Results & Data ([facility]) Vital Signs (Past 12 Hours) Vital Signs Temp Pulse Pulse Resp BP Pulse Ox O2 Del Method 05/13/22 15:27 36.8 C 70 16 147/87 H 91 Room Air 05/13/22 10:43 72 14 137/93 98 Room Air 05/13/22 10:28 70 16 113/83 98 Room Air 05/13/22 10:27 75 14 146/78 H 99 Nasal Cannula 05/13/22 10:22 71 16 148/91 H 99 Nasal Cannula 05/13/22 09:00 Room Air 05/13/22 10:17 70 16 147/101 H 100 Nasal Cannula 05/13/22 09:45 70 16 137/97 98 Room Air 05/13/22 08:20 36.6 C 70 16 124/77 94 Room Air O2 Flow Rate 05/13/22 15:27 05/13/22 10:43 05/13/22 10:28 05/13/22 10:27 4 05/13/22 10:22 4 05/13/22 09:00 05/13/22 10:17 4 05/13/22 09:45 05/13/22 08:20 Laboratory Results Bl PG Care Time/CCT Total # of Minutes Spent Total Time Spent with Patient: Total time spent is greater than 50% in coordination of care (as documented) at patient's floor/unit and/or counseling patient: Coding Level of Care Code 95288 Subseq Hosp Care Lvl 2 Diagnoses Bacteremia R78.81 PAF (paroxysmal atrial fibrillation) I48.0 Hyperlipidemia E78.5 HTN (hypertension) I10 Hypertension type: primary hypertension DM2 (diabetes mellitus, type 2) E11.65; Z79.4 Diabetes mellitus adjustment clerk insulin use: with jail use Diabetes mellitus complication status: with hyperglycemia CKD (chronic kidney disease) N18.9 Dementia F03.90 Dementia type: unspecified type Dementia behavioral disturbance: without behavioral disturbance (1) HTN (hypertension) Hypertension type: primary hypertension Qualified Code(s): I10 - Essential (primary) hypertension (2) DM2 (diabetes mellitus, type 2) Diabetes mellitus jail insulin use: with jail use Diabetes mellitus complication status: with hyperglycemia Qualified Code(s): E11.65 - Type 2 diabetes mellitus with hyperglycemia; Z79.4 - care home (current) use of insulin (3) Dementia Dementia type: unspecified type Dementia behavioral disturbance: without behavioral disturbance Qualified Code(s): F03.90 - Unspecified dementia without behavioral disturbance
[2022-05-13] MEDS: DONEPEZIL HCL 10 MG TAB PO SCH (21:34)
[2022-05-13] MEDS: MEMANTINE HCL 10 MG TAB PO SCH (22:23)
[2022-05-14 06:51] LABS: Hematocrit (blood only) 42.2 % (40.1-51.0); Hemoglobin 14.4 g/dl (14.0-18.0); Mean Corpuscular Hemoglobin 33.7 pg (25.0-34.0); Mean Corpuscular Hgb Conc 34.1 g/dL (32.0-36.0); Mean Corpuscular Volume 98.8 fL (80.0-100.0); Platelet Count 87 K/uL (130-400); RDW Coefficient of Variation 12.4 % (11.5-14.5); RDW Standard Deviation 44.8 fL (36.4-46.3); Red Blood Count 4.27 M/uL (4.63-6.08); White Blood Count 9.12 K/ul (4.8-10.8)
[2022-05-14 06:52] LABS: Creatinine Clr Calc Pharmacy 37.7 ml/min; Est GFR (African American) 42.3 ml/min; Est GFR (Non-African American) 36.5 ml/min
--- NOTE | 2022-05-14 08:10 | Pharmacy Report ---
Pharmacy Vanc AUC Short Note - Date of Service May 14, 2022 - Assessment & Plan Assessment 87 year old M receiving IV Vancomycin for treatment of Methicillin resistant Staphylococcus epidermidis bacteremia. Day # 4 of antimicrobial therapy. - Repeat blood cultures collected 05/13, per hospitalist, if negative can place midline, pt will need minimum of 2 weeks total of IV Vanco (unless otherwise outlined by ID). Plan Vancomycin * AUC/SU is the preferred PK/PD target for vancomycin * AUC guided dosing is effective and associated with decreased risk of nephrotoxicity compared to traditional trough targets * Trough level of 16.8 mcg/mL is predicted to achieve target AUC/SU of 400-600 mg/L.hr and may be associated with a 15 % risk of nephrotoxicity * Continue dose of 1250 mg IV every 24 hours * Further levels to be ordered based on duration of hospital stay Pharmacy will continue to follow and will adjust dose/frequency as necessary. Thank you.
[2022-05-14] MEDS: INSULIN ASPART PER UNIT SC SCH ×4 (08:29→21:19)
[2022-05-14] MEDS: GABAPENTIN 100 MG CAP PO SCH ×3 (08:33→18:04)
[2022-05-14] MEDS: ASPIRIN 81 MG ECTAB PO SCH (08:33)
[2022-05-14] MEDS: LANTUS PER UNIT CHARGE SQ SCH ×2 (08:37→21:18)
--- NOTE | 2022-05-14 09:27 | Hospitalist Progress Note ---
Date of Service May 14, 2022 Assessment & Plan (1) Bacteremia: Plan: Coagulase-negative staph bacteremia, staph epidermitis (methicillin resistant) 3/4 positive blood cultures, repeats pending - Unclear source. * Patient does itch due to his CKD and had a bleeding excoriation of his right buttock which does not appear warm, erythematous, or with discharge at time of assessment but? Potential for bacteremic seeding and patient's daughter does report that he was bleeding after scratching intensely earlier in the week. No spinal or paraspinal tenderness to palpation. Skin survey otherwise negative. No Janeway lesions or Ley spots. PCR positive for staph, MecA resistance gene, epidermidis speciation No indwelling prosthetic device No known osteomyelitis, endocarditis, UTI. No UTI sx. No back spinal TTP. Patient is with indwelling cardiac pacemaker UA negative with more than 3 types of bacteria from 05/10, nothing specific isolated CRP 0.9-->0.6 ID consulted -- spoke with Dr. Marycruz Hui--advised MARINE (completed) and continue vanco. will continue to make additional recommendations based on clinical course Remains on Vancomycin, pharmacy monitoring WBC wnl, afebrile 2 species identified in 05/10 bcx raises possibility of contaminant -- micro to attempt to ID species of FEED WEIGHER and sens for 05/10 and 05/11 (may take 1-2 days) ID continuing to follow TTE technically limited. MARINE 05/[address] Lino without evidence of IE Continued inpatient stay Repeat blood cultures from 05/13 [facility] Remains afebrile Will consult PT, however mostly wheelchair bound and family plans for home with . CM following Minimum 2 weeks iv abx, await negative cultures (2) PAF (paroxysmal atrial fibrillation): Plan: With pacer in place, last seen 08/22/2021 per cardiology with interrogation showing no recurrence of A. fib Anticoagulation deferred due to maintenance of sinus rhythm and high risk of falls/bleeding in the setting of dementia and weakness EKG with atrially paced rhythm on admission, rate 70s (3) Hyperlipidemia: Plan: - Continue Atorvastatin (4) HTN (hypertension): Plan: Continue daily aspirin Hypertensive in ER, amlodipine given. Continue. Patient with history of orthostasis. 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 and Tradjenta, convert to basal bolus - Goal 110-140 - Split Basal 10u BID CF 40 Ratio 15 (6) CKD (chronic kidney disease): Plan: Creatinine baseline 1.72.1 to Admitting creatinine 1.62 Renally dose medications, BMP daily, avoid nephrotoxins - Renal fxn within baseline (7) Dementia: Plan: - Continue Aricept and Namenda Plan continued inpatient stay on Vancomycin, monitor repeat blood cultures ID following Possible d/c in next 48 hours pending cultures will consult therapy Admission and Anticipated Discharge Date Admission Date: May 11, 2022 Subjective patient evaluated after lunch RN just cut up meal, patient admits he is hungry, knows name/in the hospital, trouble with year but easily reoriented. Per nursing, family state at baseline. Awaiting repeat cultures to determine length of abx treatment. Remains afberile, HDS. Review of Systems Review of Systems: All systems reviewed & are unremarkable except as noted in HPI & below Physical Exam Physical Exam: General: WD/WN elderly male sitting up in bed, BAD, fatigued appearing HEENT: head normocephalic, atraumatic, mm, trachea midline Resp: CTAB, no w/c, on room air CV: RRR, no pitting edema/calf tenderness GI: +BS, soft, nontender MSK/Neuro: generalized weakness, no focal deficit Psych: baseline dementia, however alert to person/knows in hospital, unclear on year Skin: warm, dry, erythema to buttocks, no drainage Results & Data Results & Data ([facility]) Vital Signs (Past 12 Hours) Vital Signs Temp Pulse Resp BP Pulse Ox O2 Del Method 05/14/22 08:16 36.8 C 71 16 128/67 93 Room Air 05/13/22 22:03 Room Air 05/13/22 21:44 36.8 C 68 20 136/87 93 Room Air Laboratory Results 05/14/22 05/14/22 05/14/22 Range/Units 11:55 09:34 09:34 WBC (4.8-10.8) K/ul RBC (4.63-6.08) M/uL Hgb (14.0-18.0) g/dl Hct (40.1-51.0) % MCV (80.0-100.0) fL MCH (25.0-34.0) pg MCHC (32.0-36.0) g/dL RDW Std Deviation (36.4-46.3) fL RDW Coeff of Mikal (11.5-14.5) % Plt Count (130-400) K/uL MPV (9.4-12.4) fL Sodium 143 (136-145) mmol/L Potassium 4.3 (3.5-5.1) mmol/L Chloride 109 H (98-107) mmol/L Carbon Dioxide 27 (21-32) mmol/L Anion Gap 7 (3-11) BUN 21 (6-23) mg/dl Creatinine 1.64 H (0.6-1.4) mg/dl Est Cr Clr Drug Dosing 37.7 ml/min Est GFR ( Amer) 42.3 ml/min Est GFR (Non-Af Amer) 36.5 ml/min BUN/Creatinine Ratio 12.8 (10-20) Glucose 181 H (70-99(Fasting)) mg/dl POC Glucose 143 H (70-99) mg/dl Calcium 9.2 (8.5-10.1) mg/dl Magnesium 1.9 (1.7-2.4) mg/dl Vitamin B12 349 (180-914) pg/ml Folate 14.68 (>5.38) ng/ml Random Vancomycin (10-20) mcg/ml 05/14/22 05/14/22 05/14/22 Range/Units 07:59 05:45 05:45 WBC 9.12 (4.8-10.8) K/ul RBC 4.27 L (4.63-6.08) M/uL Hgb 14.4 (14.0-18.0) g/dl Hct 42.2 (40.1-51.0) % MCV 98.8 (80.0-100.0) fL MCH 33.7 (25.0-34.0) pg MCHC 34.1 (32.0-36.0) g/dL RDW Std Deviation 44.8 (36.4-46.3) fL RDW Coeff of Mikal 12.4 (11.5-14.5) % Plt Count 87 L (130-400) K/uL MPV 11.0 (9.4-12.4) fL Sodium (136-145) mmol/L Potassium (3.5-5.1) mmol/L Chloride (98-107) mmol/L Carbon Dioxide (21-32) mmol/L Anion Gap (3-11) BUN (6-23) mg/dl Creatinine 1.64 H (0.6-1.4) mg/dl Est Cr Clr Drug Dosing 37.7 ml/min Est GFR ( Amer) 42.3 ml/min Est GFR (Non-Af Amer) 36.5 ml/min BUN/Creatinine Ratio (10-20) Glucose (70-99(Fasting)) mg/dl POC Glucose 125 H (70-99) mg/dl Calcium (8.5-10.1) mg/dl Magnesium (1.7-2.4) mg/dl Vitamin B12 (180-914) pg/ml Folate (>5.38) ng/ml Random Vancomycin (10-20) mcg/ml 05/14/22 05/13/22 05/13/22 Range/Units 05:45 21:03 16:44 WBC (4.8-10.8) K/ul RBC (4.63-6.08) M/uL Hgb (14.0-18.0) g/dl Hct (40.1-51.0) % MCV (80.0-100.0) fL MCH (25.0-34.0) pg MCHC (32.0-36.0) g/dL RDW Std Deviation (36.4-46.3) fL RDW Coeff of Mikal (11.5-14.5) % Plt Count (130-400) K/uL MPV (9.4-12.4) fL Sodium (136-145) mmol/L Potassium (3.5-5.1) mmol/L Chloride (98-107) mmol/L Carbon Dioxide (21-32) mmol/L Anion Gap (3-11) BUN (6-23) mg/dl Creatinine (0.6-1.4) mg/dl Est Cr Clr Drug Dosing ml/min Est GFR ( Amer) ml/min Est GFR (Non-Af Amer) ml/min BUN/Creatinine Ratio (10-20) Glucose (70-99(Fasting)) mg/dl POC Glucose 143 H 203 H (70-99) mg/dl Calcium (8.5-10.1) mg/dl Magnesium (1.7-2.4) mg/dl Vitamin B12 (180-914) pg/ml Folate (>5.38) ng/ml Random Vancomycin 16.8 (10-20) mcg/ml PG Care Time/CCT Total # of Minutes Spent Total Time Spent with Patient: Total time spent is greater than 50% in coordination of care (as documented) at patient's floor/unit and/or counseling patient: Coding Level of Care Code 94200 Subseq Hosp Care Lvl 3 Diagnoses Bacteremia R78.81 PAF (paroxysmal atrial fibrillation) I48.0 Hyperlipidemia E78.5 HTN (hypertension) I10 Hypertension type: primary hypertension DM2 (diabetes mellitus, type 2) E11.65; Z79.4 Diabetes mellitus shelter insulin use: with termite exterminator helper use Diabetes mellitus complication status: with hyperglycemia CKD (chronic kidney disease) N18.9 Dementia F03.90 Dementia type: unspecified type Dementia behavioral disturbance: without behavioral disturbance (1) HTN (hypertension) Hypertension type: primary hypertension Qualified Code(s): I10 - Essential (primary) hypertension (2) DM2 (diabetes mellitus, type 2) Diabetes mellitus termite exterminator helper insulin use: with shelter use Diabetes mellitus complication status: with hyperglycemia Qualified Code(s): E11.65 - Type 2 diabetes mellitus with hyperglycemia; Z79.4 - longterm (current) use of insulin (3) Dementia Dementia type: unspecified type Dementia behavioral disturbance: without behavioral disturbance Qualified Code(s): F03.90 - Unspecified dementia without behavioral disturbance
[2022-05-14 10:21] LABS: BUN Creatinine Ratio 12.8 (10-20); Calcium 9.2 mg/dl (8.5-10.1); Creatinine Clr Calc Pharmacy 37.7 ml/min; Est GFR (African American) 42.3 ml/min; Est GFR (Non-African American) 36.5 ml/min; Magnesium 1.9 mg/dl (1.7-2.4); Potassium 4.3 mmol/L (3.5-5.1)
[2022-05-14 10:43] LABS: Folate (Folic Acid) 14.68 ng/ml (>5.38)
--- NOTE | 2022-05-14 12:00 | Infectious Disease Progress Nt ---
Date of Service May 14, 2022 Assessment & Plan (1) Bacteremia: Plan #Staph epidermidis bacteremia- MRSE by PCR -presented with generalized weakness/decreased alertness without focal complaints -often unclear portal of entry in absence of central line/port -MRSE present in 2 of 2 sets on 05/10 -05/11 Bcxs with [facility] in 1 set to date -MRSE in Bcxs concerning in patient with PPM -TTE limited -pt on vancomycin- pharmacy following for dosing/levels #elevated cr- stable, reportedly at baseline Recommend: Would obtain MARINE for evaluation of IE, involvement of pacemaker. If positive, recommend CTS evaluation. Repeat Blood cultures ordered today. Would continue vancomycin with pharmacy following for dosing/levels and close monitoring of renal function. Discussed with primary team. Admission and Anticipated Discharge Date Admission Date: May 11, 2022 Subjective This patient recommendation is based on a telemedicine consult request which was completed asynchronously through chart review and information provided by the primary physician. The patient was not seen or examined today. The evaluation is consultative in nature and all patient care and treatment decisions can either be accepted or rejected by the patient's primary hospital-based treating physician using their own independent medical judgment for their patient. Pt has been afebrile and HDS. MARINE was negative. Repeat Bcxs are pending Results & Data ([facility]) Vital Signs (Past 12 Hours) Vital Signs Temp Pulse Resp BP Pulse Ox O2 Del Method 05/14/22 08:08 Room Air 05/14/22 08:16 36.8 C 71 16 128/67 93 Room Air
--- NOTE | 2022-05-14 12:09 | Infectious Disease Progress Nt ---
Date of Service May 14, 2022 Assessment & Plan (1) Bacteremia: Plan: #Staph epidermidis bacteremia- MRSE by PCR -presented with generalized weakness/decreased alertness without focal complaints -often unclear portal of entry in absence of central line/port -MRSE present in 2 of 2 sets on 05/10 -05/11 Bcxs with [facility] in 1 set to date- DIRECTOR [employer], not lugdenensis -MRSE in Bcxs concerning in patient with PPM -TTE limited -pt on vancomycin- pharmacy following for dosing/levels -MARINE negative for vegetations/lead involvement -05/10 Bcxs now reported to have 2 DIRECTOR [employer], not lugdenensis- discussed with micro lab #elevated cr- stable, reportedly at baseline Recommend: Reviewed blood culture results with micro lab- 2 species identified in 05/10 Bcxs raises possibility of contaminants. Micro lab will attempt to ID species of DIRECTOR [employer] and sensis for 05/10 and 05/11 Bcxs. Per micro lab, these results may take 1-2 days. Repeat Blood cultures 05/13 pending. Would continue vancomycin with pharmacy following for dosing/levels and close monitoring of renal function for now. Please page with any questions. Marycruz Hui M.D. [facility] Pager [phone] Admission and Anticipated Discharge Date Admission Date: May 11, 2022 Subjective This patient recommendation is based on a telemedicine consult request which was completed asynchronously through chart review and information provided by the primary physician. The patient was not seen or examined today. The evaluation is consultative in nature and all patient care and treatment decisions can either be accepted or rejected by the patient's primary hospital-based treating physician using their own independent medical judgment for their patient. * Pt afebrile and HDS. 05/13 Bcxs are pending. 05/10 Bcxs now reporting 2 different [employer]OR [employer] in aerobic bottle in 1 set- discussed with micro lab. MARINE was negative Results & Data ([facility]) Vital Signs (Past 12 Hours) Vital Signs Temp Pulse Resp BP Pulse Ox O2 Del Method 05/14/22 08:08 Room Air 05/14/22 08:16 36.8 C 71 16 128/67 93 Room Air Laboratory Results Microbiology 05/11/22 13:49 Blood Aerobic Blood Culture - Preliminary No growth in Aerobic bottle after 48 hours. 05/11/22 13:49 Blood Anaerobic Blood Culture - Final 05/11/22 13:22 Blood Aerobic Blood Culture - Preliminary Coag neg staph not lugdunensis 05/11/22 13:22 Blood Anaerobic Blood Culture - Preliminary No growth in Anaerobic bottle after 48 hours. 05/10/22 Bcxs- 2 different [employer]OR [employer] identified in aerobic bottle, 1 DIRECTOR [employer] in anaerobic bottle. Other set with 1 DIRECTOR [employer], not lugdenensis
[2022-05-14] MEDS: VANCOMYCIN HCL 1,250 MG in SODIUM CHLORIDE 0.9% 250 ML IV SCH (12:49)
[2022-05-14] MEDS: CYANOCOBALAMIN (B-12) 500 MCG TABLET PO SCH (15:43)
[2022-05-14] MEDS: MEMANTINE HCL 10 MG TAB PO SCH (21:21)
[2022-05-14] MEDS: DONEPEZIL HCL 10 MG TAB PO SCH (21:21)
[2022-05-14] MEDS: HEPARIN SOD 5,000 UNIT/0.5 ML VIAL SQ SCH (21:22)
[2022-05-15 07:44] LABS: Hematocrit (blood only) 43.3 % (40.1-51.0); Hemoglobin 14.7 g/dl (14.0-18.0); Mean Corpuscular Hemoglobin 33.6 pg (25.0-34.0); Mean Corpuscular Hgb Conc 33.9 g/dL (32.0-36.0); Mean Corpuscular Volume 99.1 fL (80.0-100.0); Platelet Count 97 K/uL (130-400); RDW Coefficient of Variation 12.4 % (11.5-14.5); RDW Standard Deviation 45.8 fL (36.4-46.3); Red Blood Count 4.37 M/uL (4.63-6.08)
[2022-05-15] MEDS: HEPARIN SOD 5,000 UNIT/0.5 ML VIAL SQ SCH ×2 (07:57→21:00)
[2022-05-15] MEDS: ASPIRIN 81 MG ECTAB PO SCH (07:57)
[2022-05-15] MEDS: CYANOCOBALAMIN (B-12) 500 MCG TABLET PO SCH (07:58)
[2022-05-15] MEDS: GABAPENTIN 100 MG CAP PO SCH ×3 (07:58→17:26)
[2022-05-15 08:03] LABS: BUN Creatinine Ratio 12.6 (10-20); Calcium 9.4 mg/dl (8.5-10.1); Creatinine Clr Calc Pharmacy 35.6 ml/min; Est GFR (African American) 39.4 ml/min; Potassium 4.1 mmol/L (3.5-5.1)
--- NOTE | 2022-05-15 08:28 | Hospitalist Progress Note ---
Date of Service May 15, 2022 Assessment & Plan (1) Bacteremia: Plan: Coagulase-negative staph bacteremia, staph epidermitis (methicillin resistant) Had been in ER 05/10 after a fall with weakness in his legs when in bathtub and required help getting out of the tub. Stated had some cloudy urine. (UA w/o bacteria, no culture sent at that time, although could have had UTI, covered by abx as outlined) 3/4 positive blood cultures, repeats pending - Unclear source. * Patient does itch due to his CKD and had a bleeding excoriation of his right buttock which does not appear warm, erythematous, or with discharge at time of assessment but? Potential for bacteremic seeding and patient's daughter does report that he was bleeding after scratching intensely earlier in the week. No spinal or paraspinal tenderness to palpation. Skin survey otherwise negative. No Janeway lesions or Ley spots. PCR positive for staph, MecA resistance gene, epidermidis speciation No indwelling prosthetic device No known osteomyelitis, endocarditis, UTI. No UTI sx. No back spinal TTP. Patient is with indwelling cardiac pacemaker UA negative with more than 3 types of bacteria from 05/10, nothing specific isolated CRP 0.9-->0.6 ID consulted -- spoke with Dr. Marycruz Hui--advised MARINE (completed) and continue vanco. will continue to make additional recommendations based on clinical course Remains on Vancomycin, pharmacy monitoring WBC wnl, afebrile 2 species identified in 05/10 bcx raises possibility of contaminant -- micro to attempt to ID species of MARINE GEOLOGIST and sens for 05/10 and 05/11 (may take 1-2 days) ID continuing to follow TTE technically limited. MARINE 05/[address] Lino without evidence of IE Continued inpatient stay Repeat blood cultures from 05/13 NGTD Remains afebrile Will consult PT, however mostly wheelchair bound and family plans for home with HH. CM following 05/15 Repeat blood cultures from 05/13 remain NGTD Discussed with ID, awaiting micro information regarding 2nd staph not ludg to see if possible contaminant If contaminant will rec to d/c abx If +, given negative MARINE, will rec 2 week course abx. can be completed with daily Dapto as outpatient Alerted CM of possible IV abx for dc to see about coverage given upcoming weekend to ensure able to arrange over the weekend based on cultures Therapy consulted to ensure able to return home (2) B12 deficiency: Plan: checked given balance issues B12 level low normal 349, placed on PO supplementation (3) PAF (paroxysmal atrial fibrillation): Plan: With pacer in place, last seen 08/22/2021 per cardiology with interrogation showing no recurrence of A. fib Anticoagulation deferred due to maintenance of sinus rhythm and high risk of falls/bleeding in the setting of dementia and weakness EKG with atrially paced rhythm on admission, rate 70s (4) Hyperlipidemia: Plan: - Continue Atorvastatin (5) HTN (hypertension): Plan: Continue daily aspirin Hypertensive in ER, amlodipine given. Continue amlodipine. Patient with history of orthostasis. 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 and Tradjenta, convert to basal bolus while inpatient - Goal 110-140 - Split Basal 10u BID CF 40 Ratio 15 BSGs acceptable (7) CKD (chronic kidney disease): Plan: Creatinine baseline 1.72.1 Admitting creatinine 1.62 Renally dose medications, BMP daily, avoid nephrotoxins Cr 1.74 Monitor BMP on abx (8) Dementia: Plan: - Continue Aricept and Namenda Plan continued inpatient stay on Vancomycin, monitor repeat blood cultures ID following Possible d/c in next 24- 48 hours pending cultures on or off abx at discharge therapy consulted to ensure safe for return home Admission and Anticipated Discharge Date Admission Date: May 11, 2022 Subjective Patient evaluated this morning, states feeling well. No acute issues. Denies having continued weakness as he had that brought him in. Endorses decent appetite. Hopeful for discharge back to home soon. Discussed possibly home with once daily antibiotics vs stopping all together based on ID/culture results. Also placed on B12 for B12 level 349. Discussed with ID this morning, Dr Hui. Awaiting micro to see if contaminant and able to dc abx vs recommendation for total 14 day course given negative MARINE and would rec daily Daptomycin given patient to be going home. Discussed this with CM to alert of possible IV abx at discharge to see about coverage over the weekend. Review of Systems Review of Systems: All systems reviewed & are unremarkable except as noted in HPI & below Physical Exam Physical Exam: General: WD/WN elderly male sitting up in bed, BAD, fatigued appearing HEENT: head normocephalic, atraumatic, mm, trachea midline Resp: CTAB, no w/c, on room air CV: RRR, no pitting edema/calf tenderness GI: +BS, soft, nontender MSK/Neuro: generalized weakness, no focal deficit Psych: baseline dementia, however alert to person/knows in hospital, unclear on year Skin: warm, dry, erythema to buttocks, no drainage Results & Data Results & Data ([facility]) Vital Signs (Past 12 Hours) Vital Signs Temp Pulse Resp BP BP Pulse Ox O2 Del Method 05/15/22 07:39 36.8 C 63 12 145/86 H 94 Room Air 05/14/22 23:14 36.8 C 71 20 144/80 H 96 Room Air Laboratory Results 05/15/22 05/15/22 05/14/22 Range/Units 07:23 07:23 20:24 WBC 8.90 (4.8-10.8) K/ul RBC 4.37 L (4.63-6.08) M/uL Hgb 14.7 (14.0-18.0) g/dl Hct 43.3 (40.1-51.0) % MCV 99.1 (80.0-100.0) fL MCH 33.6 (25.0-34.0) pg MCHC 33.9 (32.0-36.0) g/dL RDW Std Deviation 45.8 (36.4-46.3) fL RDW Coeff of Mikal 12.4 (11.5-14.5) % Plt Count 97 L (130-400) K/uL MPV 11.0 (9.4-12.4) fL Sodium 143 (136-145) mmol/L Potassium 4.1 (3.5-5.1) mmol/L Chloride 109 H (98-107) mmol/L Carbon Dioxide 28 (21-32) mmol/L Anion Gap 6 (3-11) BUN 22 (6-23) mg/dl Creatinine 1.74 H (0.6-1.4) mg/dl Est Cr Clr Drug Dosing 35.6 ml/min Est GFR ( Amer) 39.4 ml/min Est GFR (Non-Af Amer) 34.0 ml/min BUN/Creatinine Ratio 12.6 (10-20) Glucose 139 H (70-99(Fasting)) mg/dl POC Glucose 202 H (70-99) mg/dl Calcium 9.4 (8.5-10.1) mg/dl Magnesium (1.7-2.4) mg/dl Vitamin B12 (180-914) pg/ml Folate (>5.38) ng/ml 05/14/22 05/14/22 05/14/22 Range/Units 17:08 11:55 09:34 WBC (4.8-10.8) K/ul RBC (4.63-6.08) M/uL Hgb (14.0-18.0) g/dl Hct (40.1-51.0) % MCV (80.0-100.0) fL MCH (25.0-34.0) pg MCHC (32.0-36.0) g/dL RDW Std Deviation (36.4-46.3) fL RDW Coeff of Mikal (11.5-14.5) % Plt Count (130-400) K/uL MPV (9.4-12.4) fL Sodium (136-145) mmol/L Potassium (3.5-5.1) mmol/L Chloride (98-107) mmol/L Carbon Dioxide (21-32) mmol/L Anion Gap (3-11) BUN (6-23) mg/dl Creatinine (0.6-1.4) mg/dl Est Cr Clr Drug Dosing ml/min Est GFR ( Amer) ml/min Est GFR (Non-Af Amer) ml/min BUN/Creatinine Ratio (10-20) Glucose (70-99(Fasting)) mg/dl POC Glucose 148 H 143 H (70-99) mg/dl Calcium (8.5-10.1) mg/dl Magnesium (1.7-2.4) mg/dl Vitamin B12 349 (180-914) pg/ml Folate 14.68 (>5.38) ng/ml 05/14/22 Range/Units 09:34 WBC (4.8-10.8) K/ul RBC (4.63-6.08) M/uL Hgb (14.0-18.0) g/dl Hct (40.1-51.0) % MCV (80.0-100.0) fL MCH (25.0-34.0) pg MCHC (32.0-36.0) g/dL RDW Std Deviation (36.4-46.3) fL RDW Coeff of Mikal (11.5-14.5) % Plt Count (130-400) K/uL MPV (9.4-12.4) fL Sodium 143 (136-145) mmol/L Potassium 4.3 (3.5-5.1) mmol/L Chloride 109 H (98-107) mmol/L Carbon Dioxide 27 (21-32) mmol/L Anion Gap 7 (3-11) BUN 21 (6-23) mg/dl Creatinine 1.64 H (0.6-1.4) mg/dl Est Cr Clr Drug Dosing 37.7 ml/min Est GFR ( Amer) 42.3 ml/min Est GFR (Non-Af Amer) 36.5 ml/min BUN/Creatinine Ratio 12.8 (10-20) Glucose 181 H (70-99(Fasting)) mg/dl POC Glucose (70-99) mg/dl Calcium 9.2 (8.5-10.1) mg/dl Magnesium 1.9 (1.7-2.4) mg/dl Vitamin B12 (180-914) pg/ml Folate (>5.38) ng/ml PG Care Time/CCT Total # of Minutes Spent Total Time Spent with Patient: Total time spent is greater than 50% in coordination of care (as documented) at patient's floor/unit and/or counseling patient: Coding Level of Care Code 21814 Subseq Hosp Care Lvl 3 Diagnoses Bacteremia R78.81 B12 deficiency E53.8 PAF (paroxysmal atrial fibrillation) I48.0 Hyperlipidemia E78.5 HTN (hypertension) I10 Hypertension type: primary hypertension DM2 (diabetes mellitus, type 2) E11.65; Z79.4 Diabetes mellitus complication status: with hyperglycemia Diabetes mellitus [facility] insulin use: with [facility] use CKD (chronic kidney disease) N18.9 Dementia F03.90 Dementia behavioral disturbance: without behavioral disturbance Dementia type: unspecified type (1) DM2 (diabetes mellitus, type 2) Diabetes mellitus complication status: with hyperglycemia 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
[2022-05-15] MEDS: INSULIN ASPART PER UNIT SC SCH ×4 (09:14→20:53)
[2022-05-15] MEDS: LANTUS PER UNIT CHARGE SQ SCH ×2 (09:15→20:54)
[2022-05-15] MEDS: VANCOMYCIN HCL 1,250 MG in SODIUM CHLORIDE 0.9% 250 ML IV SCH (09:36)
--- NOTE | 2022-05-15 14:34 | Infectious Disease Progress Nt ---
Date of Service May 15, 2022 Assessment & Plan (1) Bacteremia: Plan: #Staph epidermidis bacteremia- MRSE by PCR -presented with generalized weakness/decreased alertness without focal complaints -often unclear portal of entry in absence of central line/port -MRSE present in 2 of 2 sets on 05/10 -05/11 Bcxs with [facility] in 1 set to date- TICKET TAKER FERRYBOAT, not lugdenensis -MRSE in Bcxs concerning in patient with PPM -TTE limited -pt on vancomycin- pharmacy following for dosing/levels -MARINE negative for vegetations/lead involvement -05/10 Bcxs now reported to have 2 TICKET TAKER FERRYBOAT, not lugdenensis- discussed with micro lab. #elevated cr-had been stable, reportedly at baseline- slightly higher today at 1.7 Recommend: 2 species identified in 05/10 Bcxs raises concern for contaminants. Micro lab has been working on ID of species of TICKET TAKER FERRYBOAT and sensis for 05/10 and 05/11 Bcxs. So far, micro lab reported different sensis of the 2 species from 05/10. 05/11 TICKET TAKER FERRYBOAT without reported sensis yet. However, given that repeat Blood cultures 05/13 are NGTD and MARINE was negative, it appears most likely that coagulase negative staph in Bcxs have been contaminants rather than representing true bacteremia. Pt has been on vancomycin with pharmacy following for dosing/levels and close monitoring of renal function for now. If 05/13 Bcxs remain negative tomorrow, would stop vancomycin as no indication to complete course. I discussed possibility of contaminants earlier today with hospitalist. Please page with any questions. Marycruz Hui M.D. [facility] [employer] Pager [phone] Admission and Anticipated Discharge Date Admission Date: May 11, 2022 Subjective This patient recommendation is based on a telemedicine consult request which was completed asynchronously through chart review and information provided by the primary physician. The patient was not seen or examined today. The evaluation is consultative in nature and all patient care and treatment decisions can either be accepted or rejected by the patient's primary hospital-based treating physician using their own independent medical judgment for their patient. * Pt afebrile and HDS. 05/13 Bcxs are NGTD. 05/10 Bcxs reported 2 different TICKET TAKER FERRYBOAT in aerobic bottle in 1 set- discussed with micro lab. MARINE was negative Results & Data ([facility]) Vital Signs (Past 12 Hours) Vital Signs Temp Pulse Resp BP Pulse Ox O2 Del Method 05/15/22 07:39 36.8 C 63 12 145/86 H 94 Room Air Laboratory Results Microbiology 05/13/22 13:17 Blood Aerobic Blood Culture - Preliminary No growth in Aerobic bottle after 48 hours. 05/13/22 13:17 Blood Anaerobic Blood Culture - Preliminary No growth in Anaerobic bottle after 48 hours. 05/13/22 13:09 Blood Aerobic Blood Culture - Preliminary No growth in Aerobic bottle after 48 hours. 05/13/22 13:09 Blood Anaerobic Blood Culture - Preliminary No growth in Anaerobic bottle after 48 hours. 05/11/22 13:22 Blood Aerobic Blood Culture - Preliminary Coag neg staph not lugdunensis 05/11/22 13:22 Blood Anaerobic Blood Culture - Preliminary No growth in Anaerobic bottle after 48 hours. 05/11/22 13:49 Blood Aerobic Blood Culture - Preliminary No growth in Aerobic bottle after 48 hours. 05/11/22 13:49 Blood Anaerobic Blood Culture - Final 05/15/22 05/15/22 05/15/22 11:51 07:59 07:23 WBC RBC Hgb Hct MCV MCH MCHC RDW Std Deviation RDW Coeff of Mikal Plt Count MPV Sodium Potassium Chloride Carbon Dioxide Anion Gap BUN Creatinine Est Cr Clr Drug Dosing Est GFR ( Amer) Est GFR (Non-Af Amer) BUN/Creatinine Ratio Glucose POC Glucose 184 H 129 H Calcium Magnesium 2.0 05/15/22 05/15/22 05/14/22 07:23 07:23 20:24 WBC 8.90 RBC 4.37 L Hgb 14.7 Hct 43.3 MCV 99.1 MCH 33.6 MCHC 33.9 RDW Std Deviation 45.8 RDW Coeff of Mikal 12.4 Plt Count 97 L MPV 11.0 Sodium 143 Potassium 4.1 Chloride 109 H Carbon Dioxide 28 Anion Gap 6 BUN 22 Creatinine 1.74 H Est Cr Clr Drug Dosing 35.6 Est GFR ( Amer) 39.4 Est GFR (Non-Af Amer) 34.0 BUN/Creatinine Ratio 12.6 Glucose 139 H POC Glucose 202 H Calcium 9.4 Magnesium 05/14/22 17:08 WBC RBC Hgb Hct MCV MCH MCHC RDW Std Deviation RDW Coeff of Mikal Plt Count MPV Sodium Potassium Chloride Carbon Dioxide Anion Gap BUN Creatinine Est Cr Clr Drug Dosing Est GFR ( Amer) Est GFR (Non-Af Amer) BUN/Creatinine Ratio Glucose POC Glucose 148 H Calcium Magnesium
[2022-05-15] MEDS: DONEPEZIL HCL 10 MG TAB PO SCH (21:01)
[2022-05-15] MEDS: MEMANTINE HCL 10 MG TAB PO SCH (21:02)
[2022-05-16] MEDS: ASPIRIN 81 MG ECTAB PO SCH (07:54)
[2022-05-16] MEDS: HEPARIN SOD 5,000 UNIT/0.5 ML VIAL SQ SCH ×2 (07:54→20:35)
[2022-05-16] MEDS: GABAPENTIN 100 MG CAP PO SCH ×2 (07:54→18:34)
[2022-05-16] MEDS: CYANOCOBALAMIN (B-12) 500 MCG TABLET PO SCH (07:54)
[2022-05-16 08:31] LABS: Creatinine Clr Calc Pharmacy 35.4 ml/min; Est GFR (African American) 39.1 ml/min; Est GFR (Non-African American) 33.8 ml/min
[2022-05-16] MEDS: INSULIN ASPART PER UNIT SC SCH ×4 (09:02→20:34)
[2022-05-16] MEDS: LANTUS PER UNIT CHARGE SQ SCH ×2 (09:03→20:34)
--- NOTE | 2022-05-16 09:18 | Hospitalist Progress Note ---
Date of Service May 16, 2022 Assessment & Plan (1) Bacteremia: Plan: Coagulase-negative staph bacteremia, staph epidermitis (methicillin resistant) Had been in ER 05/10 after a fall with weakness in his legs when in bathtub and required help getting out of the tub. Stated had some cloudy urine. (UA w/o bacteria, no culture sent at that time, although could have had UTI, covered by abx as outlined) 3/4 positive blood cultures, repeats pending - Unclear source. * Patient does itch due to his CKD and had a bleeding excoriation of his right buttock which does not appear warm, erythematous, or with discharge at time of assessment but? Potential for bacteremic seeding and patient's daughter does report that he was bleeding after scratching intensely earlier in the week. No spinal or paraspinal tenderness to palpation. Skin survey otherwise negative. No Janeway lesions or Ley spots. PCR positive for staph, MecA resistance gene, epidermidis speciation No indwelling prosthetic device No known osteomyelitis, endocarditis, UTI. No UTI sx. No back spinal TTP. Patient is with indwelling cardiac pacemaker UA negative with more than 3 types of bacteria from 05/10, nothing specific isolated CRP 0.9-->0.6 ID consulted -- spoke with Dr. Marycruz Hui--advised MARINE (completed) and continue vanco. will continue to make additional recommendations based on clinical course Remains on Vancomycin, pharmacy monitoring WBC wnl, afebrile 2 species identified in 05/10 bcx raises possibility of contaminant -- micro to attempt to ID species of ENVIRONMENTAL ATTORNEY and sens for 05/10 and 05/11 (may take 1-2 days) ID continuing to follow TTE technically limited. MARINE 05/[address] Lino without evidence of IE Continued inpatient stay Repeat blood cultures from 05/13 NGTD Remains afebrile Will consult PT, however mostly wheelchair bound and family plans for home with HH. CM following 05/15 Repeat blood cultures from 05/13 remain NGTD Discussed with ID, awaiting micro information regarding 2nd staph not ludg to see if possible contaminant If contaminant will rec to d/c abx If +, given negative MARINE, will rec 2 week course abx. can be completed with daily Dapto as outpatient Alerted CM of possible IV abx for dc to see about coverage given upcoming weekend to ensure able to arrange over the weekend based on cultures Therapy consulted to ensure able to return home 05/[address] Hui from ID, felt contaminant, see note Vancomycin discontinued Updated family, CM arranging home health for next week. They have 24/7 care and would prefer to get him home. Great support system Continued pushing oral fluids -- per daughter, patient ONLY drinks water. (2) B12 deficiency: Plan: checked given balance issues B12 level low normal 349, placed on PO supplementation -- continue at d/c (3) PAF (paroxysmal atrial fibrillation): Plan: With pacer in place, last seen 08/22/2021 per cardiology with interrogation showing no recurrence of A. fib Anticoagulation deferred due to maintenance of sinus rhythm and high risk of falls/bleeding in the setting of dementia and weakness EKG with atrially paced rhythm on admission, rate 70s (4) Hyperlipidemia: Plan: - Continue Atorvastatin (5) HTN (hypertension): Plan: Continue daily aspirin Hypertensive in ER, amlodipine given. Continue amlodipine. Patient with history of orthostasis. 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, convert to basal bolus while inpatient - Goal 110-140 - Split Basal 10u BID CF 40 Ratio 15 BSGs acceptable (7) CKD (chronic kidney disease): Plan: Creatinine baseline 1.72.1 Admitting creatinine 1.62 Renally dose medications, BMP daily, avoid nephrotoxins Cr 1.74 monitor in AM off abx (8) Dementia: Plan: - Continue Aricept and Namenda DVT Prophyalxis --> Heparin SQ while inpatient Plan d/c abx, bcx felt contaminant continue b12 supplementation family to be able to take home with 24/7 care tomorrow cm arranging home health therapy Admission and Anticipated Discharge Date Admission Date: May 11, 2022 Subjective eval this morning, no acute changes discussed awaiting ID input but hopeful for dc abx and get him home as long as family able to provide support discussed with daughter -- traveled to other state to see her daughter, her brother may be available later tonight vs tomorrow dsicussed ID discussion with micro and feeling contaminant she does have issues with patient with dehydration at baseline and discussed could have been cause of his weakness, along with low B12 questions/concerns addressed brother available tomorrow to transport, CM arranging home health therapy for early next week hopefully Review of Systems Review of Systems: All systems reviewed & are unremarkable except as noted in HPI & below Physical Exam Physical Exam: General: WD/WN elderly male sleeping in bed upon arrival, fatigued appearing HEENT: head normocephalic, atraumatic, mm, trachea midline Resp: CTAB, no w/c, on room air CV: RRR, no pitting edema/calf tenderness GI: +BS, soft, nontender MSK/Neuro: generalized weakness, no focal deficit Psych: baseline dementia, however alert to person/knows in hospital, unclear on year Skin: warm, dry, erythema to buttocks, no drainage Results & Data Results & Data ([facility]) Vital Signs (Past 12 Hours) Vital Signs Temp Pulse Resp BP Pulse Ox O2 Del Method 05/16/22 07:02 36.9 C 71 17 139/83 95 Room Air 05/15/22 22:13 36.6 C 77 18 120/70 96 Room Air Laboratory Results 05/16/22 05/16/22 05/16/22 Range/Units 12:00 08:06 07:45 Creatinine 1.75 H (0.6-1.4) mg/dl Est Cr Clr Drug Dosing 35.4 ml/min Est GFR ( Amer) 39.1 ml/min Est GFR (Non-Af Amer) 33.8 ml/min POC Glucose 190 H 155 H (70-99) mg/dl 05/15/22 05/15/22 Range/Units 20:33 17:16 Creatinine (0.6-1.4) mg/dl Est Cr Clr Drug Dosing ml/min Est GFR ( Amer) ml/min Est GFR (Non-Af Amer) ml/min POC Glucose 159 H 109 H (70-99) mg/dl PG Care Time/CCT Total # of Minutes Spent Total Time Spent with Patient: Total time spent is greater than 50% in coordination of care (as documented) at patient's floor/unit and/or counseling patient: Coding Level of Care Code 36788 Subseq Hosp Care Lvl 2 Diagnoses Bacteremia R78.81 B12 deficiency E53.8 PAF (paroxysmal atrial fibrillation) I48.0 Hyperlipidemia E78.5 HTN (hypertension) I10 Hypertension type: primary hypertension DM2 (diabetes mellitus, type 2) E11.65; Z79.4 Diabetes mellitus complication status: with hyperglycemia Diabetes mellitus terminal 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 insulin use: with senior care use CKD (chronic kidney disease) N18.9 Dementia F03.90 Dementia behavioral disturbance: without behavioral disturbance Dementia type: unspecified type (1) DM2 (diabetes mellitus, type 2) Diabetes mellitus complication status: with hyperglycemia Diabetes mellitus senior care insulin use: with terminal supervisor use Qualified Code(s): E11.65 - Type 2 diabetes mellitus with hyperglycemia; Z79.4 - [facility] (current) use of insulin (2) Dementia Dementia behavioral disturbance: without behavioral disturbance Dementia type: unspecified type Qualified Code(s): F03.90 - Unspecified dementia without behavioral disturbance (3) HTN (hypertension) Hypertension type: primary hypertension Qualified Code(s): I10 - Essential (primary) hypertension
--- NOTE | 2022-05-16 09:57 | Infectious Disease Progress Nt ---
Date of Service May 16, 2022 Assessment & Plan (1) Bacteremia: Plan: #Staph epidermidis in Bcxs -presented with generalized weakness/decreased alertness without focal complaints on 05/10 -called to return to ED as 05/10 Bcxs with MRSE by PCR -often unclear portal of entry in absence of central line/port -MRSE present in 2 of 2 sets on 05/10 -05/11 Bcxs with INPATIENT CODER, not lugdenensis -As MRSE in Bcxs concerning in patient with PPM and TTE limited, MARINE recommended which was negative for vegetations/lead involvement -pt was empirically on vancomycin- pharmacy following for dosing/levels -However, 05/10 Bcxs subsequently reported to have 2 different INPATIENT CODER, not lugden ensis- discussed with micro lab. #elevated cr-had been stable, reportedly at baseline- slightly higher today at 1.7 Recommend:Discussed ID of coagulase negative staph with micro lab today. Res ults identifying species were not released as microscan results are not completely reliable per micro lab, but 2 different coagulase negative staph species identified on 05/10 and what appears most likely to be a 3rd different coagulase negative staph species in Bcx from 05/11. The coagulase negative staph from 05/11 is reynolds-susceptible. These results, along with accompanying susceptibilities, are sufficient evidence at this point that pt did not have true bacteremia. No indication for further antibiotics and will stop vancomycin at this time. Suspicion of contaminants was discussed with hospitalist yesterday. Will sign off at this time, so please call if any further ID questions. Marycruz Hui M.D. [facility] Pager [phone] Admission and Anticipated Discharge Date Admission Date: May 11, 2022 Subjective This patient recommendation is based on a telemedicine consult request which was completed asynchronously through chart review and information provided by the primary physician. The patient was not seen or examined today. The evaluation is consultative in nature and all patient care and treatment decisions can either be accepted or rejected by the patient's primary hospital-based treating physician using their own independent medical judgment for their patient. * Pt afebrile and HDS. 05/13 Bcxs are NGTD. 05/10 Bcxs reported 2 different INPATIENT CODER in aerobic bottle in 1 set. Discussed with micro lab today re: ID. MARINE was negative Results & Data ([facility]) Vital Signs (Past 12 Hours) Vital Signs Temp Pulse Resp BP Pulse Ox O2 Del Method 05/16/22 07:02 36.9 C 71 17 139/83 95 Room Air 05/15/22 22:13 36.6 C 77 18 120/70 96 Room Air Laboratory Results 05/16/22 05/16/22 05/15/22 Range/Units 08:06 07:45 20:33 Creatinine 1.75 H (0.6-1.4) mg/dl Est Cr Clr Drug Dosing 35.4 ml/min Est GFR ( Amer) 39.1 ml/min Est GFR (Non-Af Amer) 33.8 ml/min POC Glucose 155 H 159 H (70-99) mg/dl 05/15/22 05/15/22 Range/Units 17:16 11:51 Creatinine (0.6-1.4) mg/dl Est Cr Clr Drug Dosing ml/min Est GFR ( Amer) ml/min Est GFR (Non-Af Amer) ml/min POC Glucose 109 H 184 H (70-99) mg/dl Microbiology 05/10/22 Bcxs: 2 different coag-neg staph Blood Culture Aerobic Final 05/14/22-1226 Organism 1 Coag neg staph not lugdunensis Sens Sensitivities to Follow Organism 2 Coag neg staph not lugdunensis#2 Sens Sensitivities to Follow CNSnl CNSnl#2 RX M.I.C. RX M.I.C. --- --------- --- --------- Clindamycin S <=0.5 S <=0.5 Daptomycin S <=0.5 S <=0.5 Erythromycin S <=0.5 S <=0.5 Oxacillin R >2 S <=0.25 Tetracycline S <=4 S <=4 Trimeth/Sulfa S <=0.5/9.5 S <=0.5/9.5 Vancomycin S 2 S 2 S = SENSITIVE I = INTERMEDIATE R = RESISTANT Blood Culture Anaerobic Final 05/13/22-2281 Organism 1 Coag neg staph not lugdunensis Sens Sensitivities to Follow Blood Culture PCR Panel If viewing in EMR, results available under LAB Serology tab. Phoned positive Blood Culture Gram Stain report to NATIVIDAD VELEZ on 05/11/22 at 0942 [place] [id number]. [place] [id number]. 05/11/22 13:22 Blood Aerobic Blood Culture - Final Coag negative Staphylococcus [facility] [address] [place] [address] / Director: Trever Lorenzana M.D. Clinical Laboratory Report Name: FACUNDO AGUIRRE Acct: [id number] Status: ADM IN : 1935 [facility] Date: 05/11/22 Age: 87 Sex: M Dis Date: Loc: Medical/Surgical/Ortho [address] [place] [address]/Bed: [facility] Spec: [id number] Collected: 05/11/22 Received: 05/11/[address]: Eliseo Devi DO Source: Blood OV Order: Ordered: Blood Culture Comments: Comment Default is separate sites, same time Procedure Result Verified Site Blood Culture Aerobic Final 05/16/22-920 Organism 1 Coag negative Staphylococcus Sens Sensitivities to Follow Phoned positive Blood Culture Gram Stain report to Myrtle Velez on 05/12/22 at 2112 [place] [id number]. [place] [id number]. INPATIENT CODER RX M.I.C. --- --------- Clindamycin S <=0.5 Daptomycin S 1 Erythromycin S <=0.5 Oxacillin S <=0.25 Tetracycline S <=4 Trimeth/Sulfa S <=0.5/9.5 Vancomycin S 2 S = SENSITIVE I = INTERMEDIATE R = RESISTANT Blood Culture Anaerobic Preliminary 05/13/22-1406 No growth in Anaerobic bottle after 48 hours. 05/11/22 13:22 Blood Anaerobic Blood Culture - Preliminary No growth in Anaerobic bottle after 48 hours. 05/13/22 13:17 Blood Aerobic Blood Culture - Preliminary No growth in Aerobic bottle after 48 hours. 05/13/22 13:17 Blood Anaerobic Blood Culture - Preliminary No growth in Anaerobic bottle after 48 hours. 05/13/22 13:09 Blood Aerobic Blood Culture - Preliminary No growth in Aerobic bottle after 48 hours. 05/13/22 13:09 Blood Anaerobic Blood Culture - Preliminary No growth in Anaerobic bottle after 48 hours. 05/11/22 13:49 Blood Aerobic Blood Culture - Preliminary No growth in Aerobic bottle after 48 hours. 05/11/22 13:49 Blood Anaerobic Blood Culture - Final
[2022-05-16] MEDS: VANCOMYCIN HCL 1,250 MG in SODIUM CHLORIDE 0.9% 250 ML IV SCH (10:54)
[2022-05-16] MEDS: DONEPEZIL HCL 10 MG TAB PO SCH (20:35)
[2022-05-16] MEDS: ATORVASTATIN 40 MG TAB PO SCH (20:35)
[2022-05-16] MEDS: MEMANTINE HCL 10 MG TAB PO SCH (20:36)
[2022-05-17 08:15] LABS: Hematocrit (blood only) 42.7 % (40.1-51.0); Hemoglobin 14.6 g/dl (14.0-18.0); Mean Corpuscular Hemoglobin 33.9 pg (25.0-34.0); Mean Corpuscular Hgb Conc 34.2 g/dL (32.0-36.0); Mean Corpuscular Volume 99.1 fL (80.0-100.0); Mean Platelet Volume 10.8 fL (9.4-12.4); Platelet Count 98 K/uL (130-400); RDW Coefficient of Variation 12.3 % (11.5-14.5); RDW Standard Deviation 44.8 fL (36.4-46.3); Red Blood Count 4.31 M/uL (4.63-6.08); White Blood Count 8.61 K/ul (4.8-10.8)
[2022-05-17] MEDS: GABAPENTIN 100 MG CAP PO SCH ×2 (09:00→13:06)
[2022-05-17] MEDS: CYANOCOBALAMIN (B-12) 500 MCG TABLET PO SCH (09:00)
[2022-05-17] MEDS: HEPARIN SOD 5,000 UNIT/0.5 ML VIAL SQ SCH (09:01)
[2022-05-17] MEDS: ASPIRIN 81 MG ECTAB PO SCH (09:01)
[2022-05-17] MEDS: INSULIN ASPART PER UNIT SC SCH ×2 (09:04→13:08)
[2022-05-17] MEDS: LANTUS PER UNIT CHARGE SQ SCH (09:05)
--- NOTE | 2022-05-17 09:09 | Discharge Summary ---
Date of Service May 17, 2022 Admission HPI Per Admitting Provider Jose is an 87-year-old male with a past medical history of sinus node dysfunction, paroxysmal A. fib, cardiac pacer Was at ER yesterday and dc ome. 2x episodes of orthostatic near syncope. First time standing from a chair, second time standing from bathroom chair. Hypotensive and tachy at arrival, got fluids and was improving but 2x cultures +staph epi On (4 days ago) caregiver noticed he was more somnolent before lunch. Has dementia and sleeps in recliner between meals. Caregiver had a hard time waking him up which is unusual for Eduard. His son came to visit and Eduard seemed to perk back up to normal. NO fevers/chills/sweats. Daughter was with Eduard on Thursday. When trying to get out of the shower yesterday was slumped and tired more than usual. Seemed different and more weak, and not like presyncope and new for Eduard. Came to ER and had a general evaluation which was nonfocal, d/c home with ?orthostasis and was d/c home but BCx3 positive for Staph today. Eduard seems back to normal today per daughter, no further fatigue episodes. No fevers, chills, swetas. No chest pain, no chest pressure. RoS limited by dementia. +incontinence and diarrhea yesterday and today. Medical History: Reviewed Medications: Reviewed Surgical History: Reviewed Allergies: Reviewed Social History: Reviewed, no recent tob/etoh Code Status: DNRDNI Admission Exam Per Admitting Provider General: Oriented to name only NAD. Cooperative. HEENT: Atraumatic, normocephalic. Vision/hearing grossly intact Skin: Trace excoriations at right buttock with 2 small superficial scratch/lesions. No warmth/erythema/discharge/purulence. No other infected appearing lesions of the skin. No Janeway lesions or Ley spots appreciated. Pulm: CTAB A&P. -wheezes, -rales, -rhonchi. Symmetrical chest rise. No increase in work of breathing. No respiratory distress. Cardiac: RRR, -mrg. Radial pulses intact and symmetrical. Abdominal: Nontender, nondistended, soft. BS present. Principal Diagnosis Weakness Dehydration Discharge Exam General: WD/WN elderly male sleeping in bed upon arrival, fatigued appearing HEENT: head normocephalic, atraumatic, mm, trachea midline Resp: CTAB, no w/c, on room air CV: RRR, no pitting edema/calf tenderness GI: +BS, soft, nontender MSK/Neuro: generalized weakness , no facial droop/slurred speech, follows commands ?RLE possible slightly weaker than LLE with dorsiflexion/plantar flexion, pulses palpable Psych: baseline dementia, however alert to person/knows in hospital, unclear on year Skin: warm, dry, erythema to buttocks, no drainage Discharge Data Allergies Allergy/AdvReac Type Severity Reaction Status Date / Time No Known Allergies Allergy Unverified 05/11/22 16:56 Consultations 05/11/22 14:31 ED Decision to Admit Stat 05/12/22 16:31 Consult Infectious Diseases Routine 05/12/22 17:01 Consult Cardiology Routine 05/12/22 17:41 Consult Anesthesiology Routine Procedures Performed Operation Date: 05/13/22 10:00 Actual Procedures p Echo Transesophageal - Nicanor Lino MD Ordered Studies Chest X-Ray 05/11/22 12:35 XR chest 1V portable HISTORY: 87 years-old Male Fever acute fever COMPARISON: Chest radiograph 05/10/2022 TECHNIQUE: Portable AP view of the chest FINDINGS: Cardiac silhouette is enlarged. Left subclavian pacer. No pneumothorax, pleural effusion, airspace consolidation or overt pulmonary edema. Mild subsegmental bibasilar atelectasis. Degenerative changes of the shoulders and spine. Right shoulder rotator cuff calcific tendinosis. IMPRESSION: No acute process. ACT 112: Negative or not required by law. The above report was generated using voice recognition software. It may contain grammatical, syntax or spelling errors. Electronically signed by: Derek Summers M.D. 05/11/2022 1:14 PM 05/13 TRANSESOPHAGEAL ECHO LV systolic function normal Mild concentric LVH NO VALVULAR VEGETATIONS No distinct lesions involving visualized segments of the pacemaker leads Hospital Course (1) Bacteremia: Coagulase-negative staph bacteremia, staph epidermitis (methicillin resistant) Had been in ER 05/10 after a fall with weakness in his legs when in bathtub and required help getting out of the tub. Stated had some cloudy urine. (UA w/o bacteria, no culture sent at that time, although could have had UTI, covered by abx as outlined) Placed on Vancomycin initially ECHO without vegetation MARINE obtained to r/o vegetation per ID recs, negative ID consulted --> Discussion of coagulase negative staph with micro lab . Results identifying species were not released as microscan results are not completely reliable per micro lab, but 2 different coagulase negative staph species identified on 05/10 and what appears most likely to be a 3rd different coagulase negative staph species in Bcx from 05/11. The coagulase negative staph from 05/11 is reynolds-susceptible. These results, along with accompanying susceptibilities, are sufficient evidence at this point that pt did not have true bacteremia. No indication for further antibiotics and will stop vancomycin at this time. Suspicion of contaminants was discussed with hospitalist yesterday. Antibiotics with vancomycin discontinued Given balance/falls, B12 checked -- LOW. Replacement ordered and continued at discharge Also continued empiric thiamine PT/OT consulted --> rec rehab vs 02/03 care. Family wanting to take home and home health and home therapy arranged. Of note, discussion with daughter Pawel who hadn't been updated during entire stay (as well as not PT eval until 05/16 and patient had not been up out of bed) and patient had episode of R leg giving out Reviewed prior imaging from back in 2019 as issues with R leg and falls for years * CT lumbar spine in 2019 which showed moderly advanced mutlilevel spondylitic changes with mild spinal stenosis at L2-L3 level with moderate to severe spinal stenosis at L3-L4 level, mild-mod spinal stenosis at L4-L5 level. * Did note some minor chronic wedging chronic L1 at that time Carlton, son, didn't want to be too aggressive given age and likely not surgical candidate but did discuss would recommend following up with PCP for continued discussion of obtaining lumbar spine imaging and could consider outpatient referral to ortho spine/Dr Morgan if wanted. They would like to monitor how he does throughout the weekend and discuss on Thursday Carlton stated patient did ok getting into the house and is curious how it will go to get him to use the restroom but did note patient had been in bed for several days and did expect some weakness and awaiting PT on Thursday at home Patient denied saddle paresthesias, however does have incontinence. Does not appear to be completely new, but discussed warning signs for cauda equina and to return to ER for any worsening weakness, or for any pain, which the patient denied having any back pain on exam and palpation of spine without tenderness Also possible patient with Pafib and went into afib/fall. (2) B12 deficiency: checked given balance issues B12 level low normal 349, placed on PO supplementation -- continued at d/c (3) PAF (paroxysmal atrial fibrillation): With pacer in place, last seen 08/22/2021 per cardiology with interrogation showing no recurrence of A. fib Anticoagulation deferred due to maintenance of sinus rhythm and high risk of falls/bleeding in the setting of dementia and weakness EKG with atrially paced rhythm on admission, rate 70s (4) Hyperlipidemia: Continued Atorvastatin (5) HTN (hypertension): Continued daily aspirin son reports hx ministrokes BP 145/86, acceptable for age given patient with hx orthostasis monitor in follow up (6) DM2 (diabetes mellitus, type 2): home meds held inpatient/ISS, [facility] (7) CKD (chronic kidney disease): Creatinine baseline 1.72.1 Admitting creatinine 1.62 Cr 1.65 from 1.74 prior to discharge after Vancomycin discontinued (8) Dementia: Continued Aricept and Namenda B12 low normal, replacement ordered also sent empiric thiamine DVT Prophylaxis--> Heparin SQ while inpatient I certify that this patient is under my care and that I, or a physicians assistant manager bilingual working with me, had a face to-face encounter that meets the home health [id number] encounter requirements with this patient. The encounter with the patient was in whole, or in part, for the following medical condition, which is the primary reason for home health care (list medical condition): I certify that, based on my findings, the following services are medically necessary home health services: My clinical findings support the need for the above services because: Further, I certify that my clinical findings support that this patient is homebound (i.e. absences from home require considerable and taxing effort and are for medical reasons or orthodox services or infrequently or of short duration when for other reasons) because: Certification for Home Health Services: Based on the above findings, I certify that this patient is confined to the home and needs intermittent fci care, physical therapy and/or speech therapy or continues to need occupational therapy. The patient is under my care, and I have initiated the establishment of the plan of care. This patient will be followed by a physician who will periodically review the plan of care. 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 During your stay at [facility], we have made an effort to correct the problem that brought you to the hospital while keeping you as comfortable as possible. Medications were used to bring your condition under control and your discharge instructions will include directions for any medications you should take after leaving the hospital. Please make sure you see your Primary Care Provider as part of your follow up plan. Activity: As commented below Non-emergency contact: Primary Care Provider Call non-emergency contact if: you have any medication questions, your symptoms worsen and your pain is not controlled Follow-up/Referrals: Pratik Fragoso [Primary Care Provider] - Diet: Carb Consistent or DM2 and Heart Healthy Addtl Attending Provider Instructions: You have been hospitalized for weakness. This could have been from some dehydration given issues with such at home and you did appear to be dehydrated on admission. You were provided IV fluids and blood cultures were repeated given possible thoughts for a bacteremia. These were discussion with infectious disease and felt to be contaminents and not a true infection and antibiotics have been stopped. You should continue to push oral fluids and stay hydrated at home. I also checked a B12 level on you which was lower normal and replacement has been ordered and you should continue 1000mcg daily. This should help with memory/balance/neuropathy and energy levels. You can also consider over the counter thiamine 100mg daily to help. These are B vitamins and excess gets urinated out. Therapy evaluated you and recommendations for 24/7 care at home and will have home health therapy arranged to continue working on strength/conditioning. You should follow up with your PCP in the next 7-10 days to monitor your progress. You should return to the ER with increased weakness, confusion, or for any other symptoms concerning for you. It has been a pleasure being a part of the medical team providing for you while you have been in the hospital. Take care! Pending Studies at Discharge: Yes Studies:: Repeat blood cultures no growth to date Stand-Alone Forms: My [facility] Medications and DC Order Prescriptions: New cyanocobalamin (vitamin B-12) 500 mcg Tablet 1,000 mcg PO QAM Qty: 30 0RF thiamine HCl (vitamin B1) 100 mg tablet 100 mg PO DAILY Qty: 30 0RF Continued insulin glargine [Lantus Solostar U-100 Insulin] 100 unit/mL (3 mL) insulin pen 20 unit subcut QAM gabapentin 100 mg capsule 200 mg PO BID Rx Instructions: TAKE 0800 & 1400 Metamucil 3.4 gram/5.4 gram Powder 0.5 tbsp PO DAILY atorvastatin 40 mg tablet 40 mg PO [id number] Rx Instructions: Takes on Mondays and Fridays at bedtime aspirin 81 mg Tablet,Delayed Release (Dr/Ec) 81 mg PO QAM acetaminophen [Tylenol Extra Strength] 500 mg Tablet 1,000 mg PO BID Rx Instructions: 0200 and 1400 Tradjenta 5 mg tablet 5 mg PO QAM donepezil 10 mg tablet 10 mg PO HS loratadine 10 mg Tablet 10 mg PO DAILY@1200 gabapentin 100 mg capsule 100 mg PO HS Rx Instructions: 2000 memantine [Namenda] 10 mg tablet 10 mg PO HS cholecalciferol (vitamin D3) [Vitamin D3] 125 mcg (5,000 unit) Tablet 125 mcg PO DAILY@1200 Discharge Orders: Discharge Order (Routine); Ordered 05/17/22 Ordered By: Yamilet Sharpe Admission Data Admit Date/Time: 05/11/22 15:10 Attending Provider: Sulaiman Dennison Admit Provider: Trever Kendall Primary Care Provider: Pratik Fragoso Other Providers: Trever Kendall ; Nicanor Lino ; Orlando Calderón ; Al D[facility] Other Interventions: Discharge Summary Assessment (RN) Last Done: 05/17/22 12:09 Coding Level of Care Code D/C DAY MANAGEMENT >30 MINS Diagnoses Bacteremia R78.81 B12 deficiency E53.8 PAF (paroxysmal atrial fibrillation) I48.0 Hyperlipidemia E78.5 HTN (hypertension) I10 Hypertension type: primary hypertension DM2 (diabetes mellitus, type 2) E11.65; Z79.4 Diabetes mellitus complication status: with hyperglycemia Diabetes mellitus chcf insulin use: with chcf use CKD (chronic kidney disease) N18.9 Dementia F03.90 Dementia behavioral disturbance: without behavioral disturbance Dementia type: unspecified type
[2022-05-17 10:10] LABS: BUN Creatinine Ratio 15.2 (10-20); Calcium 9.6 mg/dl (8.5-10.1); Creatinine Clr Calc Pharmacy 37.5 ml/min; Est GFR (Non-African American) 36.3 ml/min; Potassium 4.4 mmol/L (3.5-5.1)
== END 2022-05-17 14:28 | disposition home health service (06) | DRG 872 ==
LOC: ED 12:28 → SUATTDRO 15:10 → 3W 15:10